=== PATIENT | female | born 1945 | race Caucasian/White ===

== ENCOUNTER 2018-07-26 12:07 | Inpatient (IN) | payer OTHER, MEDICARE ==
[~2018-07-26] VITALS: Ht 154.9 cm; Wt 59.6 kg
[2018-07-26 12:28] LABS: BASOPHILS % 0.5 % (0.0-1.0); EOSINOPHILS # (AUTO) 0.1 (0.0-0.4); EOSINOPHILS % 1.4 % (0.0-6.0); HEMOGLOBIN 10.9 g/dL (12.0-16.0); LYMPHOCYTES % 30.8 % (18.0-39.1); MEAN CORPUSCULAR HEMOGLOBIN 31.2 pg (28-32); MEAN CORPUSCULAR HGB CONC 35.2 g/dL (31-35); MEAN CORPUSCULAR VOLUME 88.8 fL (81-99); MONOCYTES # (AUTO) 0.5 (0.2-0.8); MONOCYTES % 7.2 % (4.4-11.3); NEUTROPHILS # (AUTO) 3.9 (2.1-6.9); NEUTROPHILS % 59.8 % (38.7-80.0); PLATELET COUNT 224 x10e3/uL (140-360); RED BLOOD COUNT 3.49 x10e6/uL (3.6-5.1); RED CELL DISTRIBUTION WIDTH 13.1 % (11.7-14.4)
[2018-07-26 12:38] LABS: INR 0.86; PROTHROMBIN TIME 12.5 seconds (11.9-14.5)
[2018-07-26 12:39] LABS: PARTIAL THROMBOPLASTIN TIME 31.7 seconds (23.8-35.5)
[2018-07-26 12:46] LABS: ALBUMIN 3.6 g/dL (3.5-5.0); ALBUMIN/GLOBULIN RATIO 1.1 (0.8-2.0); ANION GAP 19.9 mmol/L (8-16); CALCIUM 9.7 mg/dL (8.4-10.2); CREATININE, SERUM 1.77 mg/dL (0.57-1.11); MAGNESIUM 1.8 MG/DL (1.3-2.1); POTASSIUM 3.9 mmol/L (3.5-5.1)
[2018-07-26 12:53] LABS: CREATINE KINASE MB 0.9 ng/mL (0-5.0)
--- NOTE | 2018-07-26 13:01 | Diagnostic Imaging Report ---
EXAMINATION: Head CT HISTORY: Weakness, evaluate for stroke COMPARISON: None. TECHNIQUE: Multidetector axial images were obtained without contrast from the foramen magnum to the vertex . The images were reconstructed using brain and bone algorithms. Thin section brain images were reformatted into coronal and sagittal planes. Intravenous contrast: None. Image quality: Motion/streaking artifact limits the evaluation of the skull base and posterior cranial fossa. Dose modulation, iterative reconstruction, and/or weight based adjustment of the mA/kV was utilized to reduce the radiation dose to as low as reasonably achievable. FINDINGS: Parenchyma: 1. Few scattered white matter hypodensities, mostly in the frontal lobes, most likely nonspecific chronic microvascular ischemic changes. 2. Nonspecific prominent hypodensity in the left greater than right middle cerebellar pedicles, which may represent sequela from prior ischemia, toxic exposure or metabolic disorder. 3. No mass or hemorrhage. No CT evidence of acute territorial vascular insult. Extra-axial spaces:No abnormal density. No extra-axial fluid collections Brain volume: Normal for age. Ventricles: No hydrocephalus or displacement. Arteries: No density suggestive of thrombus. Dural sinuses: No abnormal density. Extra-axial spaces: No abnormal density. Foramen magnum: No mass, Chiari malformation, or basilar invagination. Sella: No obvious mass. Paranasal/mastoid sinuses: Imaged portions unremarkable. Skull/Scalp: No lytic or blastic lesions. No fractures. IMPRESSION: 1. No intracranial hemorrhage or CT evidence of acute cortical infarcts. 2. Mild chronic microvascular ischemic changes. 3. Mild generalized brain volume loss. 4. Nonspecific hypodensities in the middle cerebellar peduncles as above. Signed by: Dr. Gwen Seals M.D. on 07/26/2018 12:56 PM
--- NOTE | 2018-07-26 13:22 | Diagnostic Imaging Report ---
Examination: Single AP view of the chest. COMPARISON: None. INDICATION: Weakness DISCUSSION: The lungs are well-inflated. No focal airspace consolidation, pleural effusion, or pneumothorax. Cardiomediastinal contour and pulmonary vasculature are within normal limits for portable, AP technique. No acute osseous abnormalities. Multiple surgical clips project over the right lower cervical soft tissues. IMPRESSION: No acute cardiopulmonary abnormality. Signed by: Dr. Tommy Valadez M.D. on 07/26/2018 1:16 PM
[2018-07-26] MEDS ORDERED: SODIUM CHLORIDE 0.9% 1000ML 1,000 ML IV ONE (16:15)
[2018-07-26 17:24] LABS: BILIRUBIN,URINE NEGATIVE (NEGATIVE); CLARITY,URINE CLEAR (CLEAR); COLOR,URINE YELLOW (YELLOW); KETONES,URINE NEGATIVE (NEGATIVE); LEUKOCYTE ESTERASE ,URINE TRACE (NEGATIVE); NITRITE,URINE NEGATIVE (NEGATIVE); PROTEIN,URINE DIPSTICK TRACE (NEGATIVE); URINE UROBILINOGEN 0.2 mg/dL (0.2 - 1)
[2018-07-26 17:34] LABS: BACTERIA,URINE MANY /HPF; RBC,URINE 0-5 /HPF (0-5); WBC,URINE (MAN) 0-5 /HPF (0-5)
[2018-07-26] MEDS: SODIUM CHLORIDE 0.9% 1000ML 1,000 ML IV SCH (18:47)
[2018-07-26] MEDS: CEFTRIAXONE SOD 1 GM VIAL IV SCH (18:47)
[2018-07-26] MEDS: ONDANSETRON HCL INJ 2 MG/ML VIAL IV PRN (18:47)
--- NOTE | 2018-07-26 19:15 | History and Physical ---
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 REVIEW OF SYSTEMS CARDIOVASCULAR: No chest pain or palpitation. RESPIRATORY: No shortness of breath. No cough. GASTROINTESTINAL: No nausea. No vomiting or diarrhea. GENITOURINARY: No dysuria. ALLERGIES: LISTED ON THE CHART. SOCIAL HISTORY: She does not drink. PAST MEDICAL HISTORY: Positive for diabetes mellitus, type 2, cerebellar CVA, which was diagnosed in May of this year, and history of hypertension. PHYSICAL EXAMINATION HEART: Shows Regular rhythm. Normal S1 and S2 sounds. LUNGS: Clear bilaterally. ABDOMEN: Soft. EXTREMITIES: Show no evidence of cyanosis or trauma. NEUROLOGIC: Alert and oriented times 3. Cranial nerves II-XII are within normal limits. Motor strength is 5/5 in upper and lower extremities. Sensory is intact all over. FINAL IMPRESSION 1. Difficulty walking. 2. Diabetes mellitus, type 2. 3. Status post cerebrovascular accident in the past. 4. Hypertension. PLAN OF TREATMENT: CT of the head was negative for any mention of CVA. We are going to order MRI of the head, carotid Doppler, echocardiogram, and neurology consult with Dr. Fierro. Resume home medications and antiplatelet agents. We are going to make sure she is taking lipid-lowering agents also. Job#: [id number] CT
[2018-07-26 20:08] VITALS: BP 178/77
--- NOTE | 2018-07-26 20:29 | Diagnostic Imaging Report ---
ADDENDUM #1 An additional 1 cm T2 and T2 FLAIR hyperintense focus in the right middle cerebellar peduncle, not associated with restricted diffusion, is a subacute/early chronic nonhemorrhagic vascular insult in the right anterior inferior cerebellar vascular territory. Bilateral insults in these vascular territories are very unusual. Signed by: Dr. Reginaldo Junior M.D. on 07/26/2018 8:36 PM ORIGINAL REPORT History: Weakness Comparison studies: Head CT on 07/26/2018 Technique: Sagittal T2; axial DWI, FLAIR, MPGR, T1, Coronal FLAIR. Intravenous contrast: None Findings: Scalp: Normal in signal . No masses . Bone marrow: Normal in signal intensity. Extra-axial: No masses or fluid collections. Brain sulci: Mildly prominent. Ventricles: Mild compensatory dilatation. No hydrocephalus. Parenchyma: An approximately 1.2 cm focal acute, nonhemorrhagic vascular insult (hyperintense on T2 and T2 FLAIR and associated with restricted diffusion), centered in the left middle cerebellar peduncle, has most likely compromise the anterior inferior cerebellar artery. A similar 3 mm focal infiltrate is seen in the left posterior cerebellum. A few scattered T2 FLAIR hyperintense foci in the supratentorial periventricular white matter are nonspecific small vessel ischemic changes. No masses, hemorrhage, acute or chronic cortical ischemic insults. Suprasellar region: No abnormalities. Craniocervical junction: No abnormalities. Patent foramen magnum. No Chiari one malformation. Vessels: Normal flow-voids in the arteries and sinuses. IMPRESSION: 1. An acute nonhemorrhagic vascular insult, centered in the left middle cerebellar peduncle, has compromised the left anterior inferior cerebellar artery. Smaller acute insult is seen in the left posterior cerebellum. 2. No additional acute abnormalities. 3. Mild supratentorial white matter small vessel ischemic changes. 4. Nurse Gunnar Rolon informed of the findings on 07/26/2018 at 2025 hours. Signed by: Dr. Reginaldo Junior M.D. on 07/26/2018 8:25 PM
[2018-07-26 21:00] VITALS: BP 190/82
[2018-07-26] MEDS ORDERED: AMLODIPINE BESY10 MG PO (21:34)
[2018-07-26] MEDS ORDERED: ZANTAC150 MG PO (21:34)
[2018-07-26] MEDS ORDERED: ATORVASTATIN CA20 MG PO (21:34)
[2018-07-26] MEDS ORDERED: ZYRTEC10 M3 PO (21:34)
[2018-07-26] MEDS ORDERED: ASPIRIN81 MG PO (21:34)
[2018-07-26] MEDS ORDERED: GLIMEPIRIDE2 MG PO (21:34)
[2018-07-26] MEDS ORDERED: LASIX20 MG PO (21:34)
[2018-07-26] MEDS ORDERED: LISINOPRIL20 MG PO (21:34)
[2018-07-27] VITALS: BP 169/72
[2018-07-27] MEDS: SODIUM CHLORIDE 0.9% 1000ML 1,000 ML IV SCH ×2 (02:12→12:24)
[2018-07-27 04:00] VITALS: BP 165/73
[2018-07-27 05:28] LABS: BASOPHILS % 0.3 % (0.0-1.0); EOSINOPHILS # (AUTO) 0.1 (0.0-0.4); EOSINOPHILS % 1.8 % (0.0-6.0); HEMATOCRIT 26.5 % (34.2-44.1); HEMOGLOBIN 9.2 g/dL (12.0-16.0); LYMPHOCYTES % 32.6 % (18.0-39.1); MEAN CORPUSCULAR HEMOGLOBIN 31.4 pg (28-32); MEAN CORPUSCULAR HGB CONC 34.7 g/dL (31-35); MEAN CORPUSCULAR VOLUME 90.4 fL (81-99); MONOCYTES # (AUTO) 0.6 (0.2-0.8); MONOCYTES % 9.9 % (4.4-11.3); NEUTROPHILS # (AUTO) 3.3 (2.1-6.9); NEUTROPHILS % 54.9 % (38.7-80.0); PLATELET COUNT 158 x10e3/uL (140-360); RED BLOOD COUNT 2.93 x10e6/uL (3.6-5.1); RED CELL DISTRIBUTION WIDTH 13.2 % (11.7-14.4)
[2018-07-27 06:15] LABS: ALBUMIN 3.1 g/dL (3.5-5.0); ALBUMIN/GLOBULIN RATIO 1.1 (0.8-2.0); ANION GAP 15.2 mmol/L (8-16); CALCIUM 8.8 mg/dL (8.4-10.2); CREATININE, SERUM 1.35 mg/dL (0.57-1.11); MAGNESIUM 1.8 MG/DL (1.3-2.1); POTASSIUM 4.2 mmol/L (3.5-5.1)
[2018-07-27 08:38] VITALS: BP 176/76
[2018-07-27 12:21] VITALS: BP 157/68
[2018-07-27] MEDS: LISINOPRIL 20 MG TAB PO SCH ×2 (16:55→19:45)
[2018-07-27 16:59] VITALS: BP 184/72
[2018-07-27] MEDS ORDERED: ASPIRIN 81 MG CHEW TAB PO SCH (17:00)
[2018-07-27] MEDS ORDERED: LISINOPRIL 20 MG TAB PO SCH (17:00)
[2018-07-27] MEDS: CEFTRIAXONE SOD 1 GM VIAL IV SCH (17:30)
[2018-07-27] MEDS: FAMOTIDINE 20 MG TAB PO SCH (17:30)
[2018-07-27] MEDS: GLIMEPIRIDE 2 MG TAB PO SCH (17:30)
[2018-07-27 20:00] VITALS: BP 191/99
[2018-07-27 20:11] LABS: CHOL/HDL RATIO 4.1 (3.0-3.6)
[2018-07-27] MEDS: LORATADINE 10 MG TAB PO SCH (20:30)
[2018-07-27] MEDS: ATORVASTATIN 40 MG TAB PO SCH (20:30)
[2018-07-27] MEDS ORDERED: ATORVASTATIN 20 MG TAB PO SCH (21:00)
--- NOTE | 2018-07-27 21:17 | Consultation ---
DATE OF CONSULTATION: July 27, 2018 UROLOGY CONSULTATION CHIEF UROLOGIC CONSULTATION/REASON FOR CONSULTATION: Urinary retention. HISTORY OF PRESENT ILLNESS: Ms. Kaye Knapp is a 73-year-old female, admitted to the hospital for confusion and difficulty walking, status post previous stroke. Urologic consultation was requested as the patient was unable to urinate and had urinary retention. On discussion with the nurses, it is unclear how much was in the Armas catheter when it was placed, although the bag appears full now. Speaking to the patient and the patient's daughter, both in the room, the patient has denied dysuria, denied hematuria, denied prior leakage, did have nocturia 1 or 2 times per night. PAST MEDICAL HISTORY: Known for diabetes mellitus, stroke, hypertension. MEDICATIONS: Please see MAR. ALLERGIES: NKDA. SOCIAL HISTORY: Denied smoking or drinking. FAMILY HISTORY: No urologic stones or malignancies. REVIEW OF SYSTEMS: Noncontributory other than problems mentioned above for 12-point systems. PHYSICAL EXAMINATION GENERAL: Elderly female, in no acute distress. VITALS: Temperature 98.9, pulse 86, respirations 18, blood pressure 137/68. HEENT: Sclerae anicteric. NECK: Supple. BACK: Without costovertebral angle tenderness bilaterally. ABDOMEN: Soft. It is nontender. It is nondistended. There is no palpable mass. No palpable hernias. No palpable lymphadenopathy. : Normal female external genitalia. EXTREMITIES: Without edema. Moves all 4 extremities. PSYCH: Alert and appropriate. SKIN: Intact. Normal color. PERTINENT LABORATORY DATA: Hemoglobin 10, hematocrit 31, platelet count 224,000, white cell count 6500. Sodium 139, potassium 3.9, chloride 99, bicarb 24, BUN 31, creatinine 1.77, glucose 262. Urinalysis positive for leukocyte esterase, positive for protein, trace blood, 0 to 5 reds and 0 to 5 whites. IMPRESSION 1. Urinary retention. 2. Microscopic hematuria. 3. Questionable urinary tract infection. 4. Chronic versus acute renal failure. 5. Hypertension. 6. Anemia. PLAN 1. The patient is asymptomatic urinary-cabrera, had a Armas catheter placed. Would obtain a renal ultrasound to attempt to elucidate the cause of the acute versus chronic renal failure. 2. For the urinary tract infections and microscopic hematuria, the patient should undergo elective cystoscopy which can be safely performed as an outpatient. 3. For now, will continue the Armas catheter and likely need outpatient urodynamics in the setting for stroke to rule out neurogenic bladder. Thank you for allowing me to participate in the care of your patient. We will be happy to follow along with you. Job#: [id number] GE
[2018-07-27] MEDS: HEPARIN SOD (PORCINE) 5,000 UNIT/ML VIAL SC SCH (22:45)
[2018-07-28] VITALS (8 sets, daily range): BP systolic 150–194; BP diastolic 65–84
--- NOTE | 2018-07-28 00:44 | Consultation ---
DATE OF CONSULTATION: July 27, 2018 NEUROLOGY CONSULT NOTE HISTORY OF PRESENT ILLNESS: Ms. 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 On July 25, 2018, the patient experienced the abrupt onset of poor balance with an unsteady gait. Ms. Knapp endorses mildly slurred speech, numbness over the right side of the face, blurred vision, dizziness which is further described as a vertiginous sensation, and mild confusion associated with the gait impairment. She does not report a visual field cut or weakness. After the patient's symptoms persisted for approximately 1 day, she presented to the emergency center at [facility] for further evaluation. Upon arrival in the emergency center, the patient was afebrile with a blood pressure of 121/66 mmHg and a pulse of 100 beats per minute. The patient's neurological examination was documented as being nonfocal. While in the emergency center, Ms. Knapp underwent a CT of the brain without contrast, which did not show evidence of recent large territorial ischemia or hemorrhage. Ms. Knapp was then admitted to [facility] as an inpatient for further evaluation and treatment of her symptoms. Ms. Knapp has history of a prior cerebellar stroke in May of 2018. She was hospitalized in . Ms. Knapp does not recall the symptoms she experienced with her stroke, but her daughter does endorse mildly slurred speech as well as an unsteady gait as residual deficits from the stroke. At the time of her stroke in May of 2018, the patient was instructed to take aspirin 81 mg by mouth daily for stroke prophylaxis. The patient's daughter endorses her compliance with this medication. REVIEW OF SYSTEMS: Decreased oral intake, mild confusion, blurred vision, numbness over the right side of the face, impairment of balance and gait, vertigo. Otherwise, the 12-point review of systems is negative. 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 PAST SURGICAL HISTORY: Partial hysterectomy, removal of a growth on the thyroid gland, bilateral tubal ligation. PAST HOSPITALIZATIONS: Surgeries/procedures as listed, childbirth x3, prior hospitalization for poor appetite and decreased oral intake, stroke in May 2018. FAMILY MEDICAL HISTORY: The patient's paternal and maternal grandparents are . Their medical histories are unknown. The patient's father is from a motor vehicle accident. Her mother is . Her medical history is unknown. Ms. Knapp had 3 siblings, 1 brother and 2 sisters. One sister is . The patient reports she was murdered. The second sister and brother are alive and healthy. Ms. Knapp has 3 children, 2 daughters and 1 son, all of whom are alive and healthy. SOCIAL HISTORY: The patient is . She works in [employer] at [employer]. The patient does not report current or prior tobacco, alcohol, or recreational drug use. HOME MEDICATIONS: Please see the list of home medications available in the electronic medical records. ALLERGIES: TRAMADOL, MORPHINE, METFORMIN. NO KNOWN FOOD ALLERGIES. NO KNOWN ALLERGIES TO LATEX. NO KNOWN ALLERGIES TO IODINE OR OTHER CONTRAST MATERIALS. PHYSICAL EXAMINATION: VITAL SIGNS: Height 61 inches, weight 126 pounds, BMI 23.8 kg/sq m. Blood pressure 184/72 mmHg, pulse 89 beats per minute, respiratory rate 16 breaths per minute, oxygen saturation 99% on room air. GENERAL: The patient is awake and alert, does not appear distressed. HEENT: Normocephalic, atraumatic. Pupils are equal, round, and reactive to light. Moist mucous membranes. NECK: Supple. No appreciable thyromegaly. No appreciable carotid bruits. CARDIOVASCULAR: S1, S2, regular rate and rhythm. No murmurs, rubs, or gallops. RESPIRATORY: Clear to auscultation bilaterally. No wheezes, rhonchi, or rales. EXTREMITIES: The skin is warm and dry. No clubbing, cyanosis, or edema. The posterior tibial and dorsalis pedis pulses are 1+ and symmetric. SKIN: No rashes or lesions. NEUROLOGIC EXAMINATION: MEMORY/ATTENTION: The patient is awake and alert, oriented to person, place, time, and situation. CRANIAL NERVES: Cranial nerve I - not tested. Cranial nerves II, III, IV, and - Pupils are equal and round, reacts briskly to light (from 4 mm to 2 mm). Extraocular movements intact. No nystagmus. Cranial nerve V - Sensation to light touch and pinprick is intact in the bilateral V1 through V3 distributions. Strength of the temporalis and masseter muscles is within normal limits. Cranial nerve VII - The face is symmetric as are all facial movements. Strength is within normal limits. Cranial nerve VIII - Hearing is diminished to finger rub bilaterally. Cranial nerve IX, X - The soft palate elevates equally and symmetrically. Cranial nerve XI - Normal strength of the bilateral sternocleidomastoid and trapezius muscles. Cranial nerve XII - The tongue protrudes midline and moves symmetrically from side to side. STRENGTH: Bulk is normal. Strength is 5/5 in the bilateral deltoids, biceps, triceps, wrist flexors and extensors, finger flexors and extensors, intrinsic hand muscles, hip flexors, knee flexors and extensors, ankle dorsiflexion and plantarflexion, and intrinsic foot muscles. Tone is normal. DTRs: Deep tendon reflexes are 2+ and symmetric at the triceps, biceps, brachioradialis, and patellas. Deep tendon reflexes are absent and symmetric at the Achilles. Plantar responses are flexor bilaterally. SENSATION: Sensation is intact to light touch and pinprick in both arms and both legs. CEREBELLAR: Nlfdhv-ezkp-sgafdg and heel-black movements are intact without dysmetria or other impairment except as follows: There is dysmetria with ndiqsq-pnyw-yokjgd movements of the right arm. GAIT: Deferred. SPEECH: Spontaneous speech is mildly dysarthric without aphasia. Repetition is intact. INVOLUNTARY MOVEMENTS: None. PRONATOR DRIFT: None. LABORATORY DATA: The patient's comprehensive metabolic panel is significant for an elevated serum chloride of 109, creatinine of 1.35, estimated GFR of 38, elevated serum glucose of 140. Cardiac enzymes are negative x1. Lactic acid is 9.6. The CBC with differential and platelets reveals a white blood cell count of 6.07 with a normal differential. The hemoglobin and hematocrit are 9.2 and 26.5, respectively. The platelet count is 158,000. PT, INR, and PTT are within normal limits. A urinalysis was significant for trace protein, trace blood, trace leukocyte esterase, and many urine bacteria. Blood cultures collected on July 26, 2018 showed no growth after 24 hours. A urine culture collected on July 26, 2018 is growing gram-negative bacilli. DIAGNOSTIC STUDIES: 1. Electrocardiogram, July 26, 2018: Normal sinus rhythm at 96 beats per minute. 2. Chest x-ray, July 26, 2018: No acute cardiopulmonary abnormality. 3. CT of the brain without contrast, July 26, 2018: On my review, there are prominent hypodensities in the left greater than right middle cerebellar peduncles. Cerebral volume is appropriate for age. There are findings compatible with mild to moderate chronic small-vessel ischemic disease. 4. MRI of the brain without contrast, July 26, 2018: There are acute ischemic strokes in the left middle cerebellar peduncle as well as the left posterior cerebellum. Cerebral volume is appropriate for age. There are scattered, nonspecific T2/FLAIR hyperintense foci of the supratentorial deep white matter compatible with mild chronic small-vessel ischemic disease. 5. Echocardiogram, July 27, 2018: Ejection fraction 55% to 60%. Trace mitral and tricuspid regurgitation. 6. Bilateral carotid artery ultrasound with Doppler, July 27, 2018: There is atherosclerosis without hemodynamically significant stenosis at the bilateral carotid bulbs, bifurcations, and internal carotid arteries. There is antegrade flow in the bilateral vertebral arteries. ASSESSMENT AND PLAN: Ms. Knapp is a 73-year-old right hand dominant woman with multiple vascular risk factors, admitted with embolic-appearing cerebellar strokes as described above. The patient's neurological examination is significant for dysmetria of the right arm. Her laboratory data and other diagnostic studies have been reviewed and are documented above. RECOMMENDATIONS: As follows: 1. A lipid panel and hemoglobin A1c will be ordered. 2. As stated above, there is an embolic appearance to the patient's 2 acute ischemic strokes. A MRA of the brain without contrast will be ordered to evaluate for a thromboembolic source in the basilar artery. 3. Discontinue aspirin. Ms. Knapp will be prescribed Plavix 75 mg by mouth daily for stroke prophylaxis. 4. The patient's blood pressure may be gradually normalized. Her primary care physician has resumed treatment with lisinopril and amlodipine. Monitor vital signs per unit protocol. 5. Continue treatment with atorvastatin 80 mg by mouth at bedtime daily. Follow up the results of the lipid panel. 6. Continue home diabetes medications. Follow up the results of the hemoglobin A1c. Tight glycemic control is recommended. 7. A physical therapy evaluation has been ordered and is pending. A speech therapy evaluation will be ordered as well. 8. GI prophylaxis with Pepcid 20 mg by mouth twice daily. DVT prophylaxis with heparin 5000 units subcutaneously q.12h. 9. Defer treatment of the remaining medical comorbidities to the primary and other services following the patient. Thank you for this consultation. I will continue to follow the patient while she remains in the hospital. TIME SPENT: 70 minutes. JERAMIE GANDARA M.D. Job#: [id number] DR GARIBAY
[2018-07-28] MEDS: FUROSEMIDE 20 MG TAB PO SCH (08:27)
[2018-07-28] MEDS: AMLODIPINE BESYLATE 10 MG TAB PO SCH (08:27)
[2018-07-28] MEDS: CLOPIDOGREL BISULFATE 75 MG TAB PO SCH (08:28)
[2018-07-28] MEDS: HEPARIN SOD (PORCINE) 5,000 UNIT/ML VIAL SC SCH ×2 (08:29→21:35)
--- NOTE | 2018-07-28 10:53 | Diagnostic Imaging Report ---
PROCEDURE:US RETROPERITONEAL ( KIDNEY ). COMPARISON:None. INDICATIONS:ARF TECHNIQUE:Ultrasound examination was performed of the kidneys and bladder. FINDINGS: RIGHT KIDNEY:Measures 9.4 cm. Cortex measures 1.7 cm. No evidence of hydronephrosis or solid mass. Normal echogenicity. LEFT KIDNEY:Measures 9 cm. Cortex measures 1.7 cm. No evidence of hydronephrosis or solid mass. Normal echogenicity. BLADDER:Armas catheter is present in a decompressed bladder. CONCLUSION: Unremarkable bilateral renal ultrasound. DICTATED BY: CORWIN GAGNON M.D. ON 07/28/2018 AT 11:00 ELECTRONICALLY APPROVED BY: CORWIN GAGNON M.D. ON 07/28/2018 AT 11:00
--- NOTE | 2018-07-28 12:46 | Diagnostic Imaging Report ---
Exam: Intracranial MRA: History: Stroke, Comparison studies: Brain MRI and head CT of 07/26/2018. Technique: Axial 3-D [id number] with coronal, sagittal and 3-D MIP reformats. IV contrast: None. Findings: Anterior circulation: Patent bilateral internal carotid arteries. Calcified atherosclerosis in the bilateral cavernous and paraophthalmic ICA segments with mild stenosis in the left paraophthalmic segment. Mild stenosis at the right M1 MCA origin, otherwise patent bilateral M1 and proximal M2 segments of the middle cerebral arteries. The A1 and proximal A2 segments of the anterior cerebral arteries are likewise patent. The left A1 segment is hypoplastic. Posterior circulation: Patent, no flow abnormalities in the included intradural V4 segments of the vertebral arteries, basilar artery or posterior cerebral arteries. The origins of the posterior inferior cerebellar arteries, anterior inferior cerebellar arteries and superior cerebellar arteries are patent, moreover, evaluation of these arteries distal to their origins cannot adequate evaluate by this MRA. Anatomical variants: Anterior cerebral arteries: Hypoplastic left A1 segment. Acom: Visualized. Pcoms: Not well visualized, possibly hypoplastic. Vertebral arteries: Co-dominant. IMPRESSION: 1. No major branch occlusion in the [place]. 2. Mild stenosis at the right M1 MCA origin. 3. Mild stenosis in the left paraophthalmic ICA segment. Signed by: Dr. Tommy Perry M.D. on 07/28/2018 12:43 PM
[2018-07-28] MEDS: LISINOPRIL 20 MG TAB PO SCH (16:49)
[2018-07-28] MEDS: FAMOTIDINE 20 MG TAB PO SCH (16:49)
[2018-07-28] MEDS: GLIMEPIRIDE 2 MG TAB PO SCH (16:49)
[2018-07-28] MEDS ORDERED: HYDRALAZINE HCL 20 MG/ML VIAL IV PRN (17:00)
[2018-07-28] MEDS: CEFTRIAXONE SOD 1 GM VIAL IV SCH (17:54)
--- NOTE | 2018-07-28 18:46 | Progress Note ---
DATE: INTERNAL MEDICINE PROGRESS NOTE SUBJECTIVE: Patient is apparently refusing to eat. We are going to start some appetite stimulant. Today, she participated in physical therapy. PHYSICAL EXAM HEART: Shows regular rhythm. Normal S1 and S2 sounds. LUNGS: Clear bilaterally. ABDOMEN: Soft. EXTREMITIES: Show no evidence of cyanosis, edema or trauma. VITALS: Blood pressure 177/80, temperature 97.8, heart rate 86 per minute, respiratory rate 18 per minute, oxygen saturation is 99%. On the BMP, sodium 144, potassium 4.2, chloride 109, CO2 24, BUN 24, creatinine 1.35, glucose 140. On the CBC, white blood count 6.07, hemoglobin 9.2, hematocrit 26.5, and platelet count 115,000. PT 12.5, PTT 31.7 and INR 0.86. AST 15, ALT 12, total bilirubin 0.8, alkaline phosphatase 95. FINAL IMPRESSION 1. Status post cerebrovascular accident which ischemic in nature. 2. Sydyl-mf-xnkdnwe renal failure. 3. Hypercholesterolemia. 4. Restless leg syndrome. 5. Uncontrolled hypertension with hypertensive nephropathy. 6. Uncontrolled diabetes mellitus, type 2 with diabetic nephropathy. PLAN OF TREATMENT: Continue physical and occupational therapy. Continue ceftriaxone 1 g IV daily for UTI. Lipitor 80 mg daily. Gabapentin 100 mg daily. Claritin 10 mg daily. Furosemide 20 mg daily. Lisinopril 40 mg daily. Pepcid 20 mg daily. Plavix 75 mg daily. Glimepiride 2 mg daily. Heparin 5000 units twice a day for DVT prophylaxis. For anorexia, we are going to start Remeron 15 mg p.o. daily at bedtime. MRA of the [place] is negative for any type of stenosis. We are awaiting the carotid Doppler and echocardiogram report. Continue physical and occupational therapy. Job#: [id number] [place]
[2018-07-28] MEDS: ATORVASTATIN 40 MG TAB PO SCH (21:38)
[2018-07-28] MEDS: LORATADINE 10 MG TAB PO SCH (21:38)
[2018-07-28] MEDS: GABAPENTIN 100 MG CAP PO SCH (21:38)
[2018-07-29] VITALS (7 sets, daily range): BP systolic 149–173; BP diastolic 69–79
[2018-07-29] MEDS: NEBIVOLOL 10 MG TAB PO SCH (08:41)
[2018-07-29] MEDS: FUROSEMIDE 20 MG TAB PO SCH (08:42)
[2018-07-29] MEDS: GABAPENTIN 100 MG CAP PO SCH (08:42)
[2018-07-29] MEDS: AMLODIPINE BESYLATE 10 MG TAB PO SCH (08:43)
[2018-07-29] MEDS: CLOPIDOGREL BISULFATE 75 MG TAB PO SCH (08:43)
[2018-07-29] MEDS: HEPARIN SOD (PORCINE) 5,000 UNIT/ML VIAL SC SCH ×2 (08:45→21:20)
[2018-07-29] MEDS ORDERED: AMLODIPINE BESYLATE 5 MG TAB PO SCH (09:00)
--- NOTE | 2018-07-29 10:43 | Progress Note ---
DATE: INTERNAL MEDICINE PROGRESS NOTE SUBJECTIVE: Patient is doing better. Appetite has improved. PHYSICAL EXAMINATION VITALS: Blood pressure 171/79, temperature is 97.2, heart rate 82 per minute, respiratory rate 20 per minute, oxygen saturation 100%. HEART: Regular rhythm. Normal S1 and S2 sounds. LUNGS: Clear bilaterally. EXTREMITIES: Show no evidence of cyanosis, edema or trauma. On the BMP, sodium 144, potassium 4.2, chloride 109, CO2 24, BUN 24, creatinine 1.35, glucose 114. On the CBC, white blood count 6.07, hemoglobin 9.2, hematocrit 26.5, and platelet count 158,000. PT 12.5, PTT 31.7 and INR 0.86. AST 15, ALT 12, total bilirubin 0.48, alkaline phosphatase 95. FINAL IMPRESSION 1. 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 2. Acute renal failure. 3. Hypertension with hypertensive nephropathy. 4. Hypercholesterolemia. 5. Diabetic neuropathy. 6. Poor appetite. 7. Diabetes mellitus, type 2 with diabetic nephropathy. 8. Urinary tract infection. PLAN OF TREATMENT: We are going to continue ceftriaxone 1 g IV daily for UTI. Zofran 4 mg IV q.4 h. as needed. Amlodipine 10 mg daily. Claritin 10 mg daily. Lipitor 80 mg daily. Gabapentin 100 mg daily. Furosemide 20 mg daily. Lisinopril 40 mg daily. Hydralazine 10 mg IV q.4 h. as needed. Pepcid 20 mg daily. Plavix 75 mg daily. Bystolic 10 mg daily. Glimepiride 2 mg daily. Heparin 5000 units subcutaneous twice a day and Remeron 15 mg daily. Patient is going to be transferred to [facility] if accepted by insurance for a higher level of physical therapy. Job#: [id number] DC
[2018-07-29] MEDS: HYDRALAZINE HCL 25 MG TAB PO SCH ×2 (15:44→21:00)
[2018-07-29] MEDS: LISINOPRIL 20 MG TAB PO SCH (17:15)
[2018-07-29] MEDS: GLIMEPIRIDE 2 MG TAB PO SCH (17:15)
[2018-07-29] MEDS: FAMOTIDINE 20 MG TAB PO SCH (17:15)
[2018-07-29] MEDS: CEFTRIAXONE SOD 1 GM VIAL IV SCH (17:15)
[2018-07-29] MEDS: ATORVASTATIN 40 MG TAB PO SCH (21:00)
[2018-07-29] MEDS: LORATADINE 10 MG TAB PO SCH (21:00)
[2018-07-29] MEDS ORDERED: GABAPENTIN 100 MG CAP PO SCH (21:00)
[2018-07-29] MEDS: MIRTAZAPINE 15 MG TAB PO SCH (22:20)
[2018-07-30] VITALS (8 sets, daily range): BP systolic 125–155; BP diastolic 60–76
[2018-07-30] MEDS: FUROSEMIDE 20 MG TAB PO SCH (09:00)
[2018-07-30] MEDS: HYDRALAZINE HCL 25 MG TAB PO SCH ×3 (09:00→21:28)
[2018-07-30] MEDS: CLOPIDOGREL BISULFATE 75 MG TAB PO SCH (09:00)
[2018-07-30] MEDS: NEBIVOLOL 10 MG TAB PO SCH (09:00)
[2018-07-30] MEDS: AMLODIPINE BESYLATE 10 MG TAB PO SCH (09:00)
[2018-07-30] MEDS: HEPARIN SOD (PORCINE) 5,000 UNIT/ML VIAL SC SCH ×2 (09:00→21:29)
[2018-07-30] MEDS ORDERED: DEXTROSE 50% SYRINGE 50 ML IV PRN (13:00)
[2018-07-30] MEDS ORDERED: ZOLPIDEM TARTRATE 5 MG TAB PO PRN (15:30)
--- NOTE | 2018-07-30 15:59 | Progress Note ---
DATE: INTERNAL MEDICINE PROGRESS NOTE SUBJECTIVE: The patient is sleepy during the daytime. According to the family member, she had a sleepless night. PHYSICAL EXAMINATION HEART: Regular rhythm. Normal S1 and S2 sounds. LUNGS: Clear bilaterally. ABDOMEN: Soft. EXTREMITIES: No evidence of cyanosis, edema or trauma. VITALS: Blood pressure 155/68. Temperature 97.2. Heart rate 76 per minute. Respiratory rate 16 per minute. Oxygen saturation 99%. LABS: On the BMP, sodium 144, potassium 4.2, chloride 109, CO2 24, BUN 24, creatinine 1.35. Glucose 140. On the CBC, white blood count 6.07, hemoglobin 9.2, hematocrit 26.5, platelet count 158,000. PT 12.5, PTT 31.7, INR 0.86. AST 15, ALT 12, total bilirubin 0.8, alkaline phosphatase 95. FINAL IMPRESSION 1. Left cerebrovascular accident. 2. Uncontrolled hypertension. 3. Sleepiness. 4. Uncontrolled diabetes mellitus, type 2, with diabetic neuropathy. 5. Hypercholesterolemia. 6. Urinary tract infection. PLAN OF TREATMENT 1. Continue ceftriaxone 1 gram IV once a day. 2. Zofran 4 mg IV q.4 h. as needed. 3. Amlodipine 10 mg daily. 4. Claritin 10 mg daily. 5. Lisinopril 40 mg daily. 6. Bystolic 10 mg daily. 7. Glimepiride 4 mg daily. 8. Furosemide 20 mg daily. 9. Plavix 75 mg daily. 10. Remeron 15 mg at bedtime. 11. Pepcid 20 mg daily. 12. Heparin 5,000 units subcutaneously twice a day for DVT prophylaxis. 13. Hydralazine 25 mg 3 times a day. 14. Lipitor 80 mg daily. 15. Hydralazine 10 mg IV q.4 h. as needed for hypertension. 16. We are going to discontinue gabapentin. Instead, we are going to give her Requip 0.25 mg at bedtime for restless legs. 17. We are going to also give her Ambien 5 mg at night p.r.n. for sleep. 18. Continue physical and occupational therapy. We are still waiting on [employer], which is [employer], to give us permission to go to an inpatient rehab, which the patient qualifies after a CVA. Job#: [id number] MH
[2018-07-30] MEDS: INSULIN REGULAR, HUMAN 100 UNIT/1 ML 3ML VIAL SQ SCH ×2 (16:30→21:00)
[2018-07-30] MEDS: LISINOPRIL 20 MG TAB PO SCH (16:56)
[2018-07-30] MEDS: FAMOTIDINE 20 MG TAB PO SCH (16:56)
[2018-07-30] MEDS ORDERED: GLIMEPIRIDE 2 MG TAB PO SCH (17:00)
[2018-07-30] MEDS: ROPINIROLE HCL 0.25 MG TAB PO SCH (17:12)
[2018-07-30] MEDS: CEFTRIAXONE SOD 1 GM VIAL IV SCH (17:35)
[2018-07-30] MEDS ORDERED: ROPINIROLE HCL 0.25 MG TAB PO SCH (18:00)
[2018-07-30] MEDS: ATORVASTATIN 40 MG TAB PO SCH (21:28)
[2018-07-30] MEDS: LORATADINE 10 MG TAB PO SCH (21:28)
[2018-07-30] MEDS: MIRTAZAPINE 15 MG TAB PO SCH (21:28)
[2018-07-31] VITALS (7 sets, daily range): BP systolic 132–166; BP diastolic 60–90
[2018-07-31] MEDS: INSULIN REGULAR, HUMAN 100 UNIT/1 ML 3ML VIAL SQ SCH ×4 (07:30→22:27)
[2018-07-31] MEDS: FUROSEMIDE 20 MG TAB PO SCH (08:56)
[2018-07-31] MEDS: AMLODIPINE BESYLATE 10 MG TAB PO SCH (08:56)
[2018-07-31] MEDS: NEBIVOLOL 10 MG TAB PO SCH (08:56)
[2018-07-31] MEDS: HYDRALAZINE HCL 25 MG TAB PO SCH ×3 (08:56→21:06)
[2018-07-31] MEDS: CLOPIDOGREL BISULFATE 75 MG TAB PO SCH (08:56)
[2018-07-31] MEDS: HEPARIN SOD (PORCINE) 5,000 UNIT/ML VIAL SC SCH ×2 (08:58→21:30)
[2018-07-31] MEDS: FAMOTIDINE 20 MG TAB PO SCH (16:58)
[2018-07-31] MEDS: LISINOPRIL 20 MG TAB PO SCH (16:58)
[2018-07-31] MEDS: ROPINIROLE HCL 0.25 MG TAB PO SCH (17:05)
[2018-07-31] MEDS: CEFTRIAXONE SOD 1 GM VIAL IV SCH (19:02)
[2018-07-31] MEDS: ATORVASTATIN 40 MG TAB PO SCH (21:06)
[2018-07-31] MEDS: MIRTAZAPINE 15 MG TAB PO SCH (21:06)
[2018-07-31] MEDS: LORATADINE 10 MG TAB PO SCH (21:06)
[2018-08-01] VITALS (7 sets, daily range): BP systolic 116–144; BP diastolic 56–67
[2018-08-01 05:44] LABS: BASOPHILS % 0.5 % (0.0-1.0); EOSINOPHILS # (AUTO) 0.2 (0.0-0.4); EOSINOPHILS % 2.6 % (0.0-6.0); HEMATOCRIT 28.3 % (34.2-44.1); HEMOGLOBIN 9.9 g/dL (12.0-16.0); LYMPHOCYTES # (AUTO) 2.3 (1.0-3.2); LYMPHOCYTES % 35.2 % (18.0-39.1); MEAN CORPUSCULAR HEMOGLOBIN 31.4 pg (28-32); MEAN CORPUSCULAR VOLUME 89.8 fL (81-99); MONOCYTES # (AUTO) 0.6 (0.2-0.8); MONOCYTES % 8.7 % (4.4-11.3); NEUTROPHILS # (AUTO) 3.4 (2.1-6.9); NEUTROPHILS % 52.5 % (38.7-80.0); PLATELET COUNT 167 x10e3/uL (140-360); RED BLOOD COUNT 3.15 x10e6/uL (3.6-5.1); RED CELL DISTRIBUTION WIDTH 13.3 % (11.7-14.4)
[2018-08-01 06:09] LABS: ALBUMIN/GLOBULIN RATIO 1.1 (0.8-2.0); ANION GAP 15.3 mmol/L (8-16); CALCIUM 8.8 mg/dL (8.4-10.2); CREATININE, SERUM 1.46 mg/dL (0.57-1.11); POTASSIUM 3.3 mmol/L (3.5-5.1)
[2018-08-01] MEDS: INSULIN REGULAR, HUMAN 100 UNIT/1 ML 3ML VIAL SQ SCH ×4 (07:30→21:00)
[2018-08-01] MEDS: NEBIVOLOL 10 MG TAB PO SCH (08:59)
[2018-08-01] MEDS: FUROSEMIDE 20 MG TAB PO SCH (08:59)
[2018-08-01] MEDS: HYDRALAZINE HCL 25 MG TAB PO SCH ×3 (08:59→21:45)
[2018-08-01] MEDS ORDERED: POTASSIUM CHLORIDE 20 MEQ TAB CR PO ONE (09:00)
[2018-08-01] MEDS: AMLODIPINE BESYLATE 10 MG TAB PO SCH (09:00)
[2018-08-01] MEDS: HEPARIN SOD (PORCINE) 5,000 UNIT/ML VIAL SC SCH ×2 (09:00→21:45)
[2018-08-01] MEDS: CLOPIDOGREL BISULFATE 75 MG TAB PO SCH (09:00)
[2018-08-01] MEDS ORDERED: ACETAMINOPHEN 325 MG TAB PO PRN (10:15)
[2018-08-01] MEDS ORDERED: SODIUM CHLORIDE 0.9% 1000ML 1,000 ML IV ONE (10:15)
[2018-08-01] MEDS: FAMOTIDINE 20 MG TAB PO SCH (17:23)
[2018-08-01] MEDS: ROPINIROLE HCL 0.25 MG TAB PO SCH (17:23)
[2018-08-01] MEDS: LISINOPRIL 20 MG TAB PO SCH (17:23)
[2018-08-01] MEDS: CEFTRIAXONE SOD 1 GM VIAL IV SCH (17:24)
[2018-08-01] MEDS: ATORVASTATIN 40 MG TAB PO SCH (21:45)
[2018-08-01] MEDS: LORATADINE 10 MG TAB PO SCH (21:45)
[2018-08-01] MEDS: MIRTAZAPINE 15 MG TAB PO SCH (21:45)
[2018-08-02] VITALS (7 sets, daily range): BP systolic 136–166; BP diastolic 56–72
[2018-08-02 06:02] LABS: BASOPHILS % 0.5 % (0.0-1.0); EOSINOPHILS # (AUTO) 0.2 (0.0-0.4); EOSINOPHILS % 2.4 % (0.0-6.0); HEMATOCRIT 24.6 % (34.2-44.1); HEMOGLOBIN 8.6 g/dL (12.0-16.0); LYMPHOCYTES # (AUTO) 1.9 (1.0-3.2); LYMPHOCYTES % 29.5 % (18.0-39.1); MEAN CORPUSCULAR HEMOGLOBIN 31.7 pg (28-32); MEAN CORPUSCULAR VOLUME 90.8 fL (81-99); MONOCYTES # (AUTO) 0.5 (0.2-0.8); MONOCYTES % 7.3 % (4.4-11.3); NEUTROPHILS # (AUTO) 3.8 (2.1-6.9); PLATELET COUNT 149 x10e3/uL (140-360); RED BLOOD COUNT 2.71 x10e6/uL (3.6-5.1); RED CELL DISTRIBUTION WIDTH 13.5 % (11.7-14.4)
[2018-08-02 06:32] LABS: ANION GAP 15.8 mmol/L (8-16); CALCIUM 8.3 mg/dL (8.4-10.2); CREATININE, SERUM 1.28 mg/dL (0.57-1.11); POTASSIUM 3.8 mmol/L (3.5-5.1)
[2018-08-02] MEDS: INSULIN REGULAR, HUMAN 100 UNIT/1 ML 3ML VIAL SQ SCH ×4 (07:30→20:13)
[2018-08-02] MEDS ORDERED: PNEUMOCOCCAL VACCINE POLYVALENT 23 MCG/0.5 ML VIAL IM NR (08:00)
[2018-08-02] MEDS ORDERED: INFLUENZA VIRUS VAC SPLIT INJ 0.5 ML SYR IM NR (08:00)
[2018-08-02] MEDS: HYDRALAZINE HCL 25 MG TAB PO SCH ×3 (08:47→20:25)
[2018-08-02] MEDS: AMLODIPINE BESYLATE 10 MG TAB PO SCH (08:48)
[2018-08-02] MEDS: FUROSEMIDE 20 MG TAB PO SCH (08:48)
[2018-08-02] MEDS: CLOPIDOGREL BISULFATE 75 MG TAB PO SCH (08:48)
[2018-08-02] MEDS: NEBIVOLOL 10 MG TAB PO SCH (08:48)
[2018-08-02] MEDS: HEPARIN SOD (PORCINE) 5,000 UNIT/ML VIAL SC SCH ×2 (08:54→20:25)
[2018-08-02] MEDS: ONDANSETRON HCL INJ 2 MG/ML VIAL IV PRN (10:57)
[2018-08-02 11:42] LABS: HEMATOCRIT 25.1 % (34.2-44.1); HEMOGLOBIN 8.8 g/dL (12.0-16.0); MEAN CORPUSCULAR HEMOGLOBIN 31.9 pg (28-32); MEAN CORPUSCULAR HGB CONC 35.1 g/dL (31-35); MEAN CORPUSCULAR VOLUME 90.9 fL (81-99); PLATELET COUNT 132 x10e3/uL (140-360); RED BLOOD COUNT 2.76 x10e6/uL (3.6-5.1); RED CELL DISTRIBUTION WIDTH 13.5 % (11.7-14.4)
[2018-08-02 12:06] LABS: CALCIUM 8.4 mg/dL (8.4-10.2); CREATININE, SERUM 1.27 mg/dL (0.57-1.11)
[2018-08-02 12:27] LABS: ANISOCYTOSIS SLIGHT; EOSINOPHILS % (MANUAL) 2 % (0-7); HYPOCHROMASIA SLIGHT; LYMPHOCYTES % (MANUAL) 21 % (19-48); METAMYELOCYTES % (MANUAL) 2 % (0-0); MONOCYTES % (MANUAL) 5 % (3.4-9.0); MYELOCYTES % (MANUAL) 1 % (0-0); NEUTROPHILS % (MANUAL) 69 % (40-74); PLATELET ESTIMATE SLIGHTLY DECREASED; RBC MORPHOLOGY COMMENT NORMAL
[2018-08-02 12:28] LABS: PLATELET MORPHOLOGY COMMENT NORMAL
[2018-08-02] MEDS: FAMOTIDINE 20 MG TAB PO SCH (16:47)
[2018-08-02] MEDS: LISINOPRIL 20 MG TAB PO SCH (16:47)
--- NOTE | 2018-08-02 17:46 | Progress Note ---
DATE: INTERNAL MEDICINE PROGRESS NOTE SUBJECTIVE: Patient is very sleepy. Not eating well. Barely arousable. She has had a right facial deviation apparently since the weekend. Patient is not participating in physical therapy too much. PHYSICAL EXAM: VITAL SIGNS: Blood pressure 164/71. Temperature 98 degrees. Heart rate 77 per minute. Respiratory rate is 18 per minute. HEART: Shows regular rhythm, normal S1 and S2 sounds. LUNGS: Clear bilaterally. ABDOMEN: Soft. EXTREMITIES: Show no evidence of cyanosis, edema or trauma. NEUROLOGIC: She is alert, oriented times 2. She has right facial deviation. Motor strength is 5/5 on upper and lower extremities. There are no focal deficits on the arms or legs. BLOOD WORK: We have a BMP: Sodium 141, potassium 4.0, chloride 110, CO2 18, BUN 23, creatinine 1.27, glucose 103. On the CBC: White blood count 6.59, hemoglobin 8.8, hematocrit 25.1, platelet count 132,000. PT 12.5, INR 0.86, PTT is 31.7. AST 25, ALT 23, total bilirubin 0.7 and alkaline phosphatase of 89. FINAL IMPRESSION: 1. Status post cerebellar/cerebrovascular accident. 1. Uncontrolled hypertension with hypertensive nephropathy. 2. Anorexia. 3. 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 4. Chronic anemia. 5. Chronic renal failure stage 3. PLAN OF TREATMENT: We are going to repeat another MRI. We are going to continue physical and occupational therapy. I talked with the family members about the possibility of a PEG tube. We are going to start her on Provigil 200 mg daily. Continue ceftriaxone 1 gram IV once a day. Amlodipine 10 mg daily. Claritin 10 mg daily. Lisinopril 40 mg daily. Bystolic 10 mg daily. Ambien 10 mg at night. Continue furosemide 20 mg daily. Plavix 75 mg daily. Hydralazine 25 mg 3 times a day. Requip 0.25 mg daily. Continue Pepcid 20 mg daily. Continue with heparin 5000 units subcutaneously twice a day for DVT prophylaxis. Remeron 7.5 mg daily for anorexia. Lipitor 80 mg daily. Hydralazine 10 mg IV q.4. hours as needed. Patient might not qualify for inpatient rehab, most likely a alf facility. The case has been discussed with the nurse at the bedside and also with the family, the daughter. Job#: [id number] EV
[2018-08-02] MEDS: ROPINIROLE HCL 0.25 MG TAB PO SCH (18:11)
[2018-08-02 18:17] LABS: BILIRUBIN,URINE 1+ (NEGATIVE); CLARITY,URINE SL CLOUDY (CLEAR); COLOR,URINE YELLOW (YELLOW); KETONES,URINE 1+ (NEGATIVE); LEUKOCYTE ESTERASE ,URINE TRACE (NEGATIVE); NITRITE,URINE NEGATIVE (NEGATIVE); PROTEIN,URINE DIPSTICK NEGATIVE (NEGATIVE); URINE UROBILINOGEN 0.2 mg/dL (0.2 - 1)
[2018-08-02 18:30] LABS: BACTERIA,URINE FEW /HPF; EPITHELIAL CELLS,URINE FEW /LPF; MUCUS,URINE FEW (RARE); YEAST,URINE MODERATE
[2018-08-02] MEDS: CEFTRIAXONE SOD 1 GM VIAL IV SCH (20:14)
[2018-08-02] MEDS: ATORVASTATIN 40 MG TAB PO SCH (20:25)
[2018-08-02] MEDS: LORATADINE 10 MG TAB PO SCH (20:25)
[2018-08-03] VITALS (7 sets, daily range): BP systolic 131–162; BP diastolic 59–72
[2018-08-03 05:24] LABS: ANION GAP 18.3 mmol/L (8-16); CALCIUM 9.2 mg/dL (8.4-10.2); CREATININE, SERUM 1.3 mg/dL (0.57-1.11); POTASSIUM 4.3 mmol/L (3.5-5.1)
[2018-08-03] MEDS: INSULIN REGULAR, HUMAN 100 UNIT/1 ML 3ML VIAL SQ SCH ×4 (07:30→20:46)
[2018-08-03] MEDS: CLOPIDOGREL BISULFATE 75 MG TAB PO SCH (08:20)
[2018-08-03] MEDS: FUROSEMIDE 20 MG TAB PO SCH (08:20)
[2018-08-03] MEDS: AMLODIPINE BESYLATE 10 MG TAB PO SCH (08:20)
[2018-08-03] MEDS: HYDRALAZINE HCL 25 MG TAB PO SCH ×3 (08:20→20:44)
[2018-08-03] MEDS: NEBIVOLOL 10 MG TAB PO SCH (08:20)
[2018-08-03] MEDS: HEPARIN SOD (PORCINE) 5,000 UNIT/ML VIAL SC SCH ×2 (08:27→20:47)
[2018-08-03] MEDS ORDERED: MODAFINIL 100 MG TAB PO SCH (09:00)
--- NOTE | 2018-08-03 13:37 | Diagnostic Imaging Report ---
EXAMINATION: MRI of the brain without contrast. HISTORY: New onset weakness, cerebrovascular accident. COMPARISON: Brain MRI 07/26/2018 TECHNIQUE: Sagittal T2; axial DWI, T2, FLAIR, T1-IR, T2 gradient echo; coronal FLAIR. IMAGE QUALITY: Magnetic susceptibility artifact significantly limits the evaluation of the WI sequence. FINDINGS: Parenchyma: 1. Persistent focal area of low T1, high T2/FLAIR and restricted diffusion along the left lateral pj/middle cerebellar peduncle without significant mass effect or surrounding edema. 2. A smaller similar area of low T1 and FLAIR hyperintensity along the right middle cerebellar ankle is unchanged. 3. Persistent mild chronic microvascular ischemic changes and small chronic right posterior cerebellar cortical infarct. 4. No mass, hemorrhage, acute or chronic infarcts. Skull: Unremarkable. Vessels: Expected flow voids present in the major arteries and dural sinuses. Extra-axial spaces: No abnormal signal intensity or mass effect. Brain volume: Within normal limits for age. Ventricles: No hydrocephalus or displacement. Foramen magnum: Unremarkable. Sella: Unremarkable. Paranasal / mastoid sinuses: Persistent partial opacification of the left masseter cells. IMPRESSION: 1. Interval increase in size of previously seen hyperintense/restricted diffusion lesion in the left lateral pj/middle cerebellar peduncle as well as the right middle cerebellar peduncle lesion, the differential diagnosis would include subacute ischemia, metabolic disorder, toxic exposure, PRES, neurodegenerative process, PML or infectious encephalitis among other causes. If clinically indicated correlation with CSF is advised. 2. No intracranial hemorrhage, hydrocephalus or midline shift. Signed by: Dr. Gwen Seals M.D. on 08/03/2018 1:34 PM
[2018-08-03 16:47] LABS: ALBUMIN 3.2 g/dL (3.5-5.0); BILIRUBIN,DIRECT 0.3 mg/dL (0.0-0.5)
[2018-08-03] MEDS: LISINOPRIL 20 MG TAB PO SCH (17:02)
[2018-08-03] MEDS: FAMOTIDINE 20 MG TAB PO SCH (17:02)
[2018-08-03] MEDS: ROPINIROLE HCL 0.25 MG TAB PO SCH (17:03)
[2018-08-03 17:08] LABS: THYROID STIMULATING HORMONE 1.451 uIU/mL (0.350-4.940)
[2018-08-03] MEDS: CEFTRIAXONE SOD 1 GM VIAL IV SCH (17:15)
--- NOTE | 2018-08-03 18:33 | Progress Note ---
DATE: INTERNAL MEDICINE PROGRESS NOTE SUBJECTIVE: Patient is more alert today. PHYSICAL EXAM: VITAL SIGNS: Blood pressure 162/70. Temperature 97.2. Heart rate 73 per minute. Respiratory rate 18 per minute. Oxygen saturation 100%. HEART: Shows regular rhythm. Normal S1 and S2 sounds. LUNGS: Are clear bilaterally. ABDOMEN: Soft. EXTREMITIES: Show no evidence of cyanosis, edema or trauma. The MRI showed progression of the prior cerebellar cerebrovascular accident. On the BMP: Sodium 143, potassium 4.3, chloride 111, CO2 18, BUN 23, creatinine 1.30, glucose 85. On the CBC: White blood count 6.59, hemoglobin 8.8, hematocrit 35.1, platelet count 132,000. PT 12.5, PTT 31.7, INR 0.86. AST 38, ALT 28, total bilirubin 0.7, alkaline phosphatase 86. FINAL IMPRESSION: 1. Left cerebellar cerebrovascular accident. 2. Uncontrolled hypertension with hypertensive nephropathy. 3. Anorexia. 4. Hepatic encephalopathy. 5. Chronic anemia. 6. Chronic renal failure stage 3. 7. Sleepiness most likely secondary to the Remeron. PLAN OF TREATMENT: Continue Zofran 4 mg IV q.4 h. as needed. Amlodipine 10 mg daily. Furosemide 20 mg daily. Plavix 75 mg daily. Continue monitoring blood sugar a.c. and nightly. Continue Tylenol 650 mg q.4 h. as needed for pain or fever. Pepcid 20 mg daily. Heparin 5000 units subcutaneously twice a day. Ceftriaxone 1 gram IV once a day for the UTI. Lipitor 80 mg daily. Hydralazine 10 mg IV q.4 h. as needed for hypertension. Ambien 5 mg at night p.r.n. for sleep. Hydralazine 50 mg 3 times a day. Lisinopril 40 mg daily. Bystolic 10 mg daily. Requip 0.25 mg daily. Continue physical therapy. Case discussed with the daughter. Time spent 45 minutes. Job#: [id number] ALLISON
[2018-08-03] MEDS: ATORVASTATIN 40 MG TAB PO SCH (20:46)
[2018-08-03] MEDS: LORATADINE 10 MG TAB PO SCH (20:46)
[2018-08-04] VITALS (8 sets, daily range): BP systolic 134–165; BP diastolic 60–93
[2018-08-04] MEDS: INSULIN REGULAR, HUMAN 100 UNIT/1 ML 3ML VIAL SQ SCH ×4 (08:30→20:36)
[2018-08-04] MEDS: CLOPIDOGREL BISULFATE 75 MG TAB PO SCH (08:54)
[2018-08-04] MEDS: HYDRALAZINE HCL 25 MG TAB PO SCH ×3 (08:54→20:35)
[2018-08-04] MEDS: FUROSEMIDE 20 MG TAB PO SCH (08:54)
[2018-08-04] MEDS: NEBIVOLOL 10 MG TAB PO SCH (08:54)
[2018-08-04] MEDS: AMLODIPINE BESYLATE 10 MG TAB PO SCH (08:54)
[2018-08-04] MEDS: MODAFINIL 100 MG TAB PO SCH (16:03)
[2018-08-04] MEDS: FAMOTIDINE 20 MG TAB PO SCH (18:13)
[2018-08-04] MEDS: CEFTRIAXONE SOD 1 GM VIAL IV SCH (18:13)
[2018-08-04] MEDS: ROPINIROLE HCL 0.25 MG TAB PO SCH (18:13)
[2018-08-04] MEDS: LISINOPRIL 20 MG TAB PO SCH (18:13)
[2018-08-04] MEDS: LORATADINE 10 MG TAB PO SCH (20:35)
[2018-08-04] MEDS: ATORVASTATIN 40 MG TAB PO SCH (20:35)
--- NOTE | 2018-08-04 23:44 | Discharge Summary ---
A 73-year-old female with a past medical history positive for CVA, history of diabetes and hypertension who came here with confusion and difficulty walking. The patient was found to have cerebellar CVA. Started on antiplatelet agents which is Plavix 75 mg daily. MRI of the head showed evidence of the cerebellar CVA. The patient had a very poor appetite. We started her on Remeron but then she became very sleepy and had to discontinue Remeron. After the Remeron was discontinued, she started waking up. She is still not eating well, but the family is refusing the PEG tube. They prefer her to wait to see if she can be eating better before we decide about the PEG tube. She also had a history of urinary retention. Armas catheter was ordered by Dr. Rjoas. Dr. Anali Fierro also saw her from the neurology point of view. Patient going to be transferred to [facility]. PHYSICAL EXAM: VITAL SIGNS: Blood pressure 146/65, temperature 96.6, heart rate 72 per minute. Respiratory rate 20 per minute. Oxygen saturation 100%. HEART: Regular rhythm. No murmur. No extra sounds. LUNGS: Clear bilaterally. ABDOMEN: Soft. EXTREMITIES: Show no evidence of cyanosis, edema or trauma. LABORATORY DATA: On the BMP, sodium 143, potassium 4.3, chloride 111. CO2 18. BUN 23, creatinine 1.30. Glucose 85. CBC showed white blood count 6.59, hemoglobin 8.8, hematocrit 25.1, platelet count 152,000. PT 12.5, INR 0.86. PTT 31.7. AST 30. ALT 28. Total bilirubin 0.7, alkaline phosphatase 86. FINAL IMPRESSION 1. Status post cerebellar cerebrovascular accident. 2. Poor appetite. 3. Chronic renal insufficiency stage 2 to 3. 4. History of hypertension. 5. Hypercholesterolemia. PLAN OF TREATMENT: Continue Norvasc 10 mg daily. Claritin 10 mg daily. Furosemide 20 mg daily. Plavix 75 mg daily. Ceftriaxone 1 gram IV once a day for UTI. Pepcid 20 mg daily. Hydralazine 10 mg IV q.4 hours as needed for hypertension. Ambien 5 mg at night p.r.n. for sleep. Hydralazine 50 mg 3 times a day. Lipitor 80 mg daily. Bystolic 10 mg daily. Requip 0.5 mg at bedtime. Provigil 100 mg twice a day because of sleepiness. Continue lisinopril 40 mg daily. Continue Tylenol 350 mg q.4 hours as needed. The patient is going to be transferred to [facility] tomorrow. JOSE GRACE MD Job#: [id number] GH
[2018-08-05] VITALS: BP 152/67
[2018-08-05] MEDS: ONDANSETRON HCL INJ 2 MG/ML VIAL IV PRN (03:46)
[2018-08-05 04:00] VITALS: BP 138/66
[2018-08-05] MEDS: INSULIN REGULAR, HUMAN 100 UNIT/1 ML 3ML VIAL SQ SCH ×3 (07:30→16:30)
[2018-08-05 08:24] VITALS: BP 153/77
[2018-08-05 08:50] VITALS: BP 153/77
[2018-08-05] MEDS: MODAFINIL 100 MG TAB PO SCH ×2 (08:50→16:58)
[2018-08-05] MEDS: CLOPIDOGREL BISULFATE 75 MG TAB PO SCH (08:50)
[2018-08-05] MEDS: HYDRALAZINE HCL 25 MG TAB PO SCH ×2 (08:50→15:34)
[2018-08-05] MEDS: FUROSEMIDE 20 MG TAB PO SCH (08:50)
[2018-08-05] MEDS: NEBIVOLOL 10 MG TAB PO SCH (08:50)
[2018-08-05] MEDS: AMLODIPINE BESYLATE 10 MG TAB PO SCH (08:50)
[2018-08-05 12:44] VITALS: BP 128/67
[2018-08-05] MEDS: FAMOTIDINE 20 MG TAB PO SCH (16:55)
[2018-08-05] MEDS: LISINOPRIL 20 MG TAB PO SCH (16:57)
[2018-08-05] MEDS: CEFTRIAXONE SOD 1 GM VIAL IV SCH (16:58)
[2018-08-05 17:17] VITALS: BP 132/64
[2018-08-05] MEDS: ROPINIROLE HCL 0.25 MG TAB PO SCH (17:34)
--- NOTE | 2018-08-05 17:59 | Discharge Summary ---
HISTORY OF PRESENT ILLNESS: A 73-year-old female who has a past medical history positive for a prior cerebellar CVA, history of hypertension, history of diabetes mellitus type 2. Patient came to the hospital because she was found to be more confused with difficulty walking and slurred speech. Patient was found to have a new cerebellar CVA. Patient was started on antiplatelet agents and lipid-lowering agents. Patient is going to go to [facility] today. PHYSICAL EXAM: HEART: Shows regular rhythm. Normal S1 and S2 sounds. LUNGS: Clear bilaterally. ABDOMEN: Soft. EXTREMITIES: Show no evidence of cyanosis, edema or trauma. VITAL SIGNS: Blood pressure 128/67, temperature to 98.2, heart rate is 78 per minute, respiratory rate 18 per minute. Oxygen saturation 97%. LABORATORY STUDIES: On the blood work we have a BMP: Sodium 143, potassium 4.3, chloride 111, CO2 18, BUN 23, creatinine 1.30, glucose 85. On the CBC: White blood count 6.59, hemoglobin 8.8, hematocrit 35.1, platelet 132,000. PT 12.5, PTT 31.7, INR 0.86. AST 30, ALT 28, total bilirubin 0.7, alkaline phosphatase 86. FINAL IMPRESSIONS: 1. Status post left cerebellar cerebrovascular accident. 2. Hypertension with chronic renal insufficiency. 3. Urinary tract infection. 4. Hypercholesterolemia. 5. Encephalopathy which seems to be resolving. 6. Diabetes mellitus type 2 with diabetic nephropathy. PLAN OF TREATMENT: Continue amlodipine 10 mg daily. Claritin 10 mg daily as needed. Furosemide 20 mg daily. Plavix 75 mg daily. Dextrose as needed. D50 as needed for hypoglycemia. Ceftriaxone 1 gram IV once a day, which can be discontinued. Pepcid 20 mg daily. Hydralazine 10 mg IV q.4 hours as needed for hypertension. Ambien 5 mg at night p.r.n. for sleep. Hydralazine 50 mg 3 times a day. Lipitor 80 mg daily. Bystolic 10 mg daily. Requip 0.25 mg daily. Provigil 100 mg twice a day. Lisinopril 40 mg daily. Continue monitoring blood sugar a.c. and nightly. Continue Tylenol 650 mg q.4 hours as needed. Patient [facility] for [facility] purposes to hopefully increase her endurance enough for her to be able to go home. JOSE GRACE MD Job#: [id number] EV
== END 2018-08-05 18:07 | DRG 65 ==
LOC: ER 12:07 → ERHOLD 18:12 → MED/SURG 20:12 → OBSVTOIN 07-27 12:06
PROVIDERS: ADMIT Internal Medicine; ATTEND Internal Medicine
DX: I63.9 Cerebral infarction, unspecified (principal); I69.351 Hemiplegia and hemiparesis following cerebral infarction affecting right dominant side; N17.9 Acute kidney failure, unspecified; I67.4 Hypertensive encephalopathy; I13.0 Hypertensive heart and chronic kidney disease with heart failure and stage 1 through stage 4 chronic kidney disease, or unspecified chronic kidney disease; I50.32 Chronic diastolic (congestive) heart failure; N18.3 Chronic kidney disease, stage 3 (moderate); R63.0 Anorexia; Z68.24 Body mass index [BMI] 24.0-24.9, adult; E11.22 Type 2 diabetes mellitus with diabetic chronic kidney disease; E78.5 Hyperlipidemia, unspecified; E11.319 Type 2 diabetes mellitus with unspecified diabetic retinopathy without macular edema; Z79.4 Long term (current) use of insulin; I69.322 Dysarthria following cerebral infarction; R33.9 Retention of urine, unspecified; D64.9 Anemia, unspecified; R31.29 Other microscopic hematuria; K72.90 Hepatic failure, unspecified without coma; T43.025A Adverse effect of tetracyclic antidepressants, initial encounter; G47.09 Other insomnia; E11.40 Type 2 diabetes mellitus with diabetic neuropathy, unspecified; B96.1 Klebsiella pneumoniae [K. pneumoniae] as the cause of diseases classified elsewhere; E11.21 Type 2 diabetes mellitus with diabetic nephropathy; Z74.09 Other reduced mobility
CPT/HCPCS: 36415; 70450; 70544; 70551; 71045; 76770; 80048; 80053; 80061; 80076; 81001; 82140; 82550; 82553; 82948; 83036; 83605; 83735; 84443; 84484; 85007; 85025; 85027; 85610; 85730; 87040; 87086; 87186; 92523; 93005; 93306; 93880; 96372; 97139; G0378; J0360; J0696; J1644; J2405; J7030

== ENCOUNTER → 2018-09-21 | Outpatient (CLI) | payer MEDICARE, OTHER ==
[~2018-09-21] MED LIST: AMLODIPINE BESY10 MG PO; AMLODIPINE BESYL5 MG PO; ASPIRIN81 MG PO; ATORVASTATIN CA20 MG PO; ATORVASTATIN CA80 MG PO; CLOPIDOGREL75 MG PO; DIAZEPAM5 MG PO; FAMOTIDINE20 MG PO; FLUOXETINE HCL20 MG PO; FUROSEMIDE20 MG PO; FUROSEMIDE40 MG PO; GLIMEPIRIDE2 MG PO; HYDRALAZINE HCL50 MG PO; HYDROCORTISONE10 MG PO; LASIX20 MG PO; LISINOPRIL20 MG PO; LISINOPRIL40 MG PO; MAGOX 400400 MG PO; METHYLPHENIDATE5 MG PO; METOPROLOL SUCC50 MG PO; MINOCYCLINE HC100 MG PO; NAMENDA10 MG PO; ROPINIROLE HC0.25 MG PO; ZANTAC150 MG PO; ZYRTEC10 M3 PO
--- NOTE | 2018-09-21 16:53 | Diagnostic Imaging Report ---
Left shoulder, 2 views. History: Pain. Comparison: <None available>. Discussion: The soft tissues are normal. The osseous structures are intact without evidence of fracture or dislocation. Mild glenoid irregularity is degenerative in appearance. There is no evidence of AC separation. The glenohumeral joint is within normal limits. IMPRESSION: No acute radiographic abnormality. Signed by: Dr. Bear Campbell DO on 09/21/2018 4:49 PM
== END ==
LOC: EDBD 14:52 → RAD 14:52
PROVIDERS: ATTEND Internal Medicine
DX: M25.512 Pain in left shoulder (principal)

== ENCOUNTER 2018-09-24 07:23 | Observation (INO) | payer MEDICARE, OTHER ==
[~2018-09-24] VITALS: Ht 152.4 cm; Wt 57.4 kg
[~2018-09-24 07:23] MED LIST changes: -AMLODIPINE BESYL5 MG PO; -ATORVASTATIN CA80 MG PO; -CLOPIDOGREL75 MG PO; -DIAZEPAM5 MG PO; -FAMOTIDINE20 MG PO; -FLUOXETINE HCL20 MG PO; -FUROSEMIDE20 MG PO; -FUROSEMIDE40 MG PO; -HYDRALAZINE HCL50 MG PO; -HYDROCORTISONE10 MG PO; -LISINOPRIL40 MG PO; -MAGOX 400400 MG PO; -METHYLPHENIDATE5 MG PO; -METOPROLOL SUCC50 MG PO; -MINOCYCLINE HC100 MG PO; -NAMENDA10 MG PO; -ROPINIROLE HC0.25 MG PO
[2018-09-24] MEDS ORDERED: SODIUM CHLORIDE 0.9% 1000ML 1,000 ML IV STA (07:34)
[2018-09-24] MEDS ORDERED: ONDANSETRON HCL INJ 2 MG/ML VIAL IV ONE ×2 (07:45→21:17)
[2018-09-24] MEDS ORDERED: FAMOTIDINE 20 MG/2 ML VIAL IV ONE (07:45)
[2018-09-24] MEDS ORDERED: DIATRIZOATE MEGL/DIATRIZOA SOD 30 ML BTL PO ONE (07:46)
[2018-09-24] MEDS ORDERED: HYDROMORPHONE 1MG/1ML INJ IV PRN (08:05)
[2018-09-24] MEDS ORDERED: NAMENDA10 MG PO (08:19)
[2018-09-24] MEDS ORDERED: MINOCYCLINE HC100 MG PO (08:19)
[2018-09-24] MEDS ORDERED: LISINOPRIL40 MG PO (08:19)
[2018-09-24] MEDS ORDERED: MAGOX 400400 MG PO (08:19)
[2018-09-24] MEDS ORDERED: CLOPIDOGREL75 MG PO (08:19)
[2018-09-24] MEDS ORDERED: AMLODIPINE BESYL5 MG PO (08:19)
[2018-09-24] MEDS ORDERED: METHYLPHENIDATE5 MG PO (08:19)
[2018-09-24] MEDS ORDERED: METOPROLOL SUCC50 MG PO (08:19)
[2018-09-24] MEDS ORDERED: FLUOXETINE HCL20 MG PO (08:19)
[2018-09-24] MEDS ORDERED: HYDRALAZINE HCL50 MG PO (08:19)
[2018-09-24] MEDS ORDERED: FAMOTIDINE20 MG PO (08:19)
[2018-09-24] MEDS ORDERED: FUROSEMIDE20 MG PO (08:19)
[2018-09-24] MEDS ORDERED: ATORVASTATIN CA80 MG PO (08:19)
[2018-09-24 08:31] LABS: BASOPHILS % 0.3 % (0.0-1.0); EOSINOPHILS # (AUTO) 0.2 (0.0-0.4); EOSINOPHILS % 2.7 % (0.0-6.0); HEMATOCRIT 28.1 % (34.2-44.1); HEMOGLOBIN 9.7 g/dL (12.0-16.0); LYMPHOCYTES # (AUTO) 1.2 (1.0-3.2); LYMPHOCYTES % 18.1 % (18.0-39.1); MEAN CORPUSCULAR HGB CONC 34.5 g/dL (31-35); MEAN CORPUSCULAR VOLUME 95.6 fL (81-99); MONOCYTES # (AUTO) 0.5 (0.2-0.8); MONOCYTES % 7.9 % (4.4-11.3); NEUTROPHILS # (AUTO) 4.7 (2.1-6.9); NEUTROPHILS % 70.6 % (38.7-80.0); PLATELET COUNT 162 x10e3/uL (140-360); RED BLOOD COUNT 2.94 x10e6/uL (3.6-5.1); RED CELL DISTRIBUTION WIDTH 13.8 % (11.7-14.4)
[2018-09-24] MEDS: HYDROMORPHONE 2MG/ML 2 MG/ML ML IV PRN ×3 (08:33→19:07)
[2018-09-24 08:44] LABS: BILIRUBIN,URINE NEGATIVE (NEGATIVE); CLARITY,URINE HAZY (CLEAR); COLOR,URINE YELLOW (YELLOW); KETONES,URINE TRACE (NEGATIVE); LEUKOCYTE ESTERASE ,URINE NEGATIVE (NEGATIVE); NITRITE,URINE NEGATIVE (NEGATIVE); PROTEIN,URINE DIPSTICK NEGATIVE (NEGATIVE); URINE UROBILINOGEN 0.2 mg/dL (0.2 - 1)
[2018-09-24 08:47] LABS: WBC,URINE (MAN) 0-5 /HPF (0-5)
[2018-09-24 08:49] LABS: BACTERIA,URINE FEW /HPF; EPITHELIAL CELLS,URINE FEW /LPF; HYALINE CASTS 0-1 (0-1); MUCUS,URINE RARE (RARE); YEAST,URINE FEW
[2018-09-24 08:51] LABS: ALBUMIN 3.5 g/dL (3.5-5.0); ALBUMIN/GLOBULIN RATIO 1.1 (0.8-2.0); ANION GAP 19.6 mmol/L (8-16); CALCIUM 9.1 mg/dL (8.4-10.2); CREATININE, SERUM 2.48 mg/dL (0.57-1.11); POTASSIUM 3.6 mmol/L (3.5-5.1)
--- NOTE | 2018-09-24 10:25 | Diagnostic Imaging Report ---
EXAM: CT Abdomen and Pelvis WITHOUT contrast INDICATION: Rectal pain. Constipation. COMPARISON: None. TECHNIQUE: Abdomen and pelvis were scanned utilizing a multidetector helical scanner from the lung base to the pubic symphysis without administration of IV contrast. Absence of intravenous contrast decreases sensitivity for detection of focal lesions and vascular pathology. Coronal and sagittal reformations were obtained. Routine protocol was performed. IV CONTRAST: None. ORAL CONTRAST: Water RADIATION DOSE: Total DLP: 206.51 mGy*cm Estimated effective dose: (DLP x 0.015 x size factor) mSv COMPLICATIONS: None FINDINGS: LINES and TUBES: None. LOWER THORAX: Mild bibasilar dependent atelectasis. HEPATOBILIARY: No focal hepatic lesions. No biliary ductal dilation. GALLBLADDER: No radio-opaque stones or sludge. No wall thickening. SPLEEN: No splenomegaly. PANCREAS: Diffuse atrophy. No focal masses or ductal dilatation. ADRENALS: Mild thickening of the left adrenal gland with low attenuation suggestive of the presence of small adenomas versus hyperplasia. No right adrenal nodules. KIDNEYS/URETERS: No hydronephrosis. No cystic or solid mass lesions. No stones. GI TRACT: No abnormal distention, wall thickening, or evidence of bowel obstruction. Appendix is not visualized. There is a moderate volume of stool within the rectum. PELVIC ORGANS/BLADDER: The urinary bladder is decompressed by a Armas catheter. Status post hysterectomy. LYMPH NODES: No lymphadenopathy. VESSELS: There is mild to moderate atherosclerotic disease in the aorta and major arterial branches. PERITONEUM / RETROPERITONEUM: No free air or fluid. BONES: There are degenerative changes in the lumbar spine. SOFT TISSUES: Unremarkable. IMPRESSION: 1. Moderate volume within the rectum. No bowel obstruction. 2. No acute abdominal pelvic abnormality. Signed by: Dr. Yolanda De La Garza M.D. on 09/24/2018 10:21 AM
[2018-09-24] MEDS ORDERED: ACETAMINOPHEN 325 MG TAB PO PRN (11:00)
[2018-09-24] MEDS ORDERED: DIPHENHYDRAMINE HCL INJ 50 MG/ML VIAL IV PRN (11:00)
[2018-09-24] MEDS ORDERED: ONDANSETRON HCL INJ 2 MG/ML VIAL IV PRN ×2 (11:00→21:30)
[2018-09-24] MEDS ORDERED: MORPHINE SULFATE 2 MG/ML SYR IV PRN ×2 (11:00)
[2018-09-24] MEDS ORDERED: LACTULOSE SYRUP 20 GM/30 ML UDC PO PRN (11:00)
[2018-09-24] MEDS ORDERED: HYDROMORPHONE 2MG/ML 2 MG/ML ML IV PRN (11:15)
[2018-09-24] MEDS ORDERED: MINERAL OIL 132 ML BTL PR ONE (11:15)
[2018-09-24] MEDS: SODIUM CHLORIDE 0.9% 1000ML 1,000 ML IV SCH ×2 (12:25→20:45)
[2018-09-24] MEDS ORDERED: BISACODYL 10 MG SUPP PR ONE (14:15)
[2018-09-24] MEDS ORDERED: BISACODYL 10 MG SUPP PR PRN (14:15)
[2018-09-24 15:00] VITALS: BP 156/68
--- NOTE | 2018-09-24 15:06 | History and Physical ---
CHIEF COMPLAINT: Abdominal pain and generalized weakness. HISTORY OF PRESENT ILLNESS: This is a 73-year-old white woman who presents [facility] emergency room with a 2-3 day history of worsening abdominal pain and constipation. The patient states she has a history of chronic constipation. The patient stated she was trying MiraLAX at home with only minimal success. The patient unfortunately has a history of cerebrovascular disease, specifically left cerebral stroke in May 2018 and bilateral cerebellar strokes in July 2018. The patient has residual left hemiparesis from her strokes. The patient has been predominately bedbound since May 2018 according to her adult daughter who is present. On this admission to the emergency room, the patient was found to have a BUN and creatinine of 34 and 2.48 respectively. In July of 2018, the patient's BUN and creatinine was 23 and 1.3 respectively. In the emergency room, the patient was found to have a white blood cell count of 6600 with 70% segmented neutrophils. The patient's hemoglobin was 9.7 g percent. The patient underwent a CT of the abdomen and pelvis without contrast in the emergency room on this admission, which revealed moderate stool volume in the rectum, but no bowel obstruction appreciated. No other acute intra-abdominal pelvic abnormalities appreciated. The patient was admitted for further evaluation and treatment. REVIEW OF SYSTEMS GENERAL: Worsening weakness in the last 2-3 days. No fever or chills. HEENT: No headaches. No vision changes. CARDIOVASCULAR: No chest pain. GI: Chronic constipation, but minimal bowel movement in the last 2-3 days according to the adult daughter. No melena or hematochezia. No nausea or vomiting. : Has a history of recurrent urinary tract infections. No evidence of urinary tract infection in the emergency room. NEUROMUSCULAR: The patient has been bedbound/wheelchair bound since her last stroke in July 2018. ALLERGIES 1. METFORMIN. 2. MORPHINE. 3. TRAMADOL. PAST MEDICAL HISTORY 1. Cerebrovascular disease with left hemiparesis (left cerebral stroke in May 2018 and bilateral cerebral strokes in July 2018). 2. Hypertensive heart disease. 3. Chronic constipation. 4. Stage 3 chronic kidney disease. 5. Dyslipidemia. 6. GERD. 7. Type 2 Diabetes. FAMILY HISTORY: No family history of stroke. SOCIAL HISTORY: She is a . She lives with her adult daughter. No history of tobacco or alcohol use. SURGICAL HISTORY 1. Bilateral tubal ligation. 2. Hysterectomy. 3. Benign thyroid resection. MEDICATIONS 1. Amlodipine 5 mg a day. 2. Atorvastatin 80 mg at bedtime. 3. Zyrtec 10 mg daily. 4. Clopidogrel 75 mg daily. 5. Famotidine 20 mg daily. 6. Fluoxetine 20 mg daily. 7. Furosemide 10 mg daily. 8. Glimepiride 2 mg daily. 9. Hydralazine 50 mg every 8 hours. 10. Lisinopril 40 mg daily. 11. Magnesium oxide 400 mg t.i.d. with meals. 12. Namenda 10 mg daily. 13. Methylphenidate 5 mg daily. 14. Metoprolol succinate 50 mg daily. 15. Minocycline 100 mg b.i.d. PHYSICAL EXAMINATION GENERAL: She is awake and alert. She answers questions slowly. She gets confused easily. Her adult daughter is at bedside, who provides most of the history. VITALS: Blood pressure is 160/59, pulse 82, respiratory rate 18, oxygen saturation 100% on room air, temperature 98.7. Height is 5 feet 1 inches, weight 133 pounds, BMI 24. INTEGUMENT: Skin is warm and dry. No pallor or conjunctivitis appreciated. HEENT: Anicteric sclerae. Dry mucous membranes. NECK: Supple. CARDIOVASCULAR: Distant heart sounds. Regular rate and rhythm. LUNGS: No rales. No rhonchi. No wheezing. ABDOMEN: Soft. Normal bowel sounds heard. No masses appreciated. EXTREMITIES: No edema or deformity. NEUROLOGIC: She has left-sided weakness more pronounced on the left arm. IMPRESSION 1. Sdxor-bt-ltdtkcy renal failure. 2. Chronic constipation. 3. Stool impaction (rectal). 4. Cerebrovascular disease with left-sided hemiparesis (left cerebellar stroke in May 2018, bilateral cerebellar stroke in July 2018). 5. Hypertensive heart disease. 6. Physical debility. PLAN 1. Will hold TRINIDAD inhibitors and diuretics. 2. Intravenous fluids. 3. Follow renal function. 4. Dulcolax suppository. 5. Order chest x-ray. I spent an hour in the care of the patient. Job#: [id number] MARY ANN GARIBAY
--- NOTE | 2018-09-24 15:38 | Diagnostic Imaging Report ---
EXAMINATION: CHEST SINGLE (PORTABLE) INDICATION: CHF. COMPARISON: 07/26/2018. FINDINGS: TUBES and LINES: None. LUNGS: Mild elevation of the lower right hemidiaphragm. There is no evidence of pneumonia or pulmonary edema. PLEURA: No pleural effusion or pneumothorax. HEART AND MEDIASTINUM: The cardiomediastinal silhouette is unremarkable. BONES AND SOFT TISSUES: No acute osseous lesion. Soft tissues are unremarkable. UPPER ABDOMEN: No free air under the diaphragm. IMPRESSION: No acute thoracic abnormality. Signed by: Dr. Yolanda De La Garza M.D. on 09/24/2018 3:34 PM
--- NOTE | 2018-09-24 16:06 | Consultation ---
DATE OF CONSULTATION: September 24, 2018 REASON FOR CONSULTATION: Acute kidney failure. This 72-year-old female, status post CVA, was admitted with not eating, not drinking. Over the last few days she was found to have increased creatinine. PAST MEDICAL HISTORY: 1. Type 2 diabetes mellitus. 2. Hypertension. 3. CVA in May 2018. 4. Neurologic residual. 5. Urinary retention. 6. Urinary tract infection. 7. Chronic kidney disease, stage 3. ALLERGIES: TRAMADOL, MORPHINE, METFORMIN. HOME MEDICATIONS: Please see list. SOCIAL HISTORY: Lives with family. FAMILY HISTORY: Paternal and maternal grandparents are . Father is from MVA. Mother . PAST SURGICAL HISTORY: 1. Partial hysterectomy. 2. Removal of growth on the thyroid gland. 3. Bilateral tubal ligation. REVIEW OF SYSTEMS: Decreased appetite. Positive for weakness. No dysuria, no hematuria. The patient is with a Armas catheter. Has a history of urinary retention. Neurologically, no worsening weakness. Remains with residual from her CVA. PHYSICAL EXAMINATION GENERAL: Alert, following commands. VITAL SIGNS: Blood pressure 142/64. HEENT: Pupils equal, reactive to light and accommodation. NECK: No JVD, no bruit. LUNGS: No rhonchi, no rales. HEART: Regular rate and rhythm. No S3, no S4. ABDOMEN: Nontender, nondistended. No hepatosplenomegaly. EXTREMITIES: No clubbing, no cyanosis, no edema. NEUROLOGIC: Alert, no changes from previous. Positive residual from CVA. LABORATORY DATA: White count 6.6, hemoglobin 9.7, hematocrit 28. Urinalysis negative. Sodium 140, potassium 3.6, chloride 100, BUN 34, creatinine 2.48. Her baseline creatinine is at 1.3 with a previous GFR of 40. ASSESSMENT AND PLAN: 1. At this time, I think the patient is volume depleted with no signs of obvious UTI or sepsis. Will start on IV fluids. Will hold diuretics. Reevaluate meds. 2. Status post CVA, no changes. 3. Decreased appetite. The patient might need calorie count if she remains with low intake, and she also might need a PEG tube. So for now, will encourage her to take more by p.o. 4. In short, IV fluids, hold TRINIDAD inhibitors, hold diuretics and rule out infection and calorie count if needed. Labs also in the morning. Job#: [id number] GH
[2018-09-24] MEDS ORDERED: FAMOTIDINE 20 MG/2 ML VIAL IV SCH (17:00)
[2018-09-24 19:20] VITALS: BP 130/62
[2018-09-24 20:00] VITALS: BP 130/62
[2018-09-24] MEDS: ATORVASTATIN 40 MG TAB PO SCH (20:48)
[2018-09-24] MEDS ORDERED: MAGNESIUM HYDROXIDE 30 ML UDC PO ONE ×2 (21:00→22:00)
[2018-09-24] MEDS ORDERED: NON-FORMULARY MEDICATION (Atorvastatin Calcium 80 MG) PO SCH (21:00)
[2018-09-24 21:11] LABS: FERRITIN 124.23 ng/mL (4.63-204.00)
[2018-09-24] MEDS ORDERED: NON-FORMULARY MEDICATION (Hydralazine Hcl 50 MG) PO SCH (22:00)
[2018-09-24] MEDS: HYDRALAZINE HCL 25 MG TAB PO SCH (22:09)
[2018-09-25] MEDS: HYDROMORPHONE 2MG/ML 2 MG/ML ML IV PRN ×2 (01:06→05:33)
[2018-09-25 01:30] VITALS: BP 129/61
[2018-09-25 01:54] LABS: FOLATE > 40.0 ng/mL (7.0-15.4)
[2018-09-25 05:20] VITALS: BP 159/65
[2018-09-25 05:31] LABS: ANION GAP 14.3 mmol/L (8-16); CALCIUM 7.7 mg/dL (8.4-10.2); CREATININE, SERUM 2.04 mg/dL (0.57-1.11); POTASSIUM 3.3 mmol/L (3.5-5.1)
[2018-09-25] MEDS: HYDRALAZINE HCL 25 MG TAB PO SCH ×3 (05:32→22:03)
[2018-09-25 06:04] LABS: FREE THYROXINE INDEX 2.2159 (1.4-3.8); THYROID STIMULATING HORMONE 4.072 uIU/mL (0.350-4.940)
[2018-09-25 06:07] LABS: BASOPHILS % 0.3 % (0.0-1.0); EOSINOPHILS % 0.5 % (0.0-6.0); HEMATOCRIT 23.7 % (34.2-44.1); LYMPHOCYTES # (AUTO) 0.7 (1.0-3.2); LYMPHOCYTES % 10.4 % (18.0-39.1); MEAN CORPUSCULAR HEMOGLOBIN 32.5 pg (28-32); MEAN CORPUSCULAR HGB CONC 33.8 g/dL (31-35); MEAN CORPUSCULAR VOLUME 96.3 fL (81-99); MONOCYTES # (AUTO) 0.6 (0.2-0.8); MONOCYTES % 9.3 % (4.4-11.3); NEUTROPHILS # (AUTO) 5.1 (2.1-6.9); NEUTROPHILS % 79.2 % (38.7-80.0); PLATELET COUNT 129 x10e3/uL (140-360); RED BLOOD COUNT 2.46 x10e6/uL (3.6-5.1); RED CELL DISTRIBUTION WIDTH 13.9 % (11.7-14.4)
[2018-09-25 08:03] VITALS: BP 124/58
[2018-09-25] MEDS: AMLODIPINE BESYLATE 5 MG TAB PO SCH (08:40)
[2018-09-25] MEDS: CLOPIDOGREL BISULFATE 75 MG TAB PO SCH (08:40)
[2018-09-25] MEDS: FLUOXETINE HCL 20 MG CAP PO SCH (08:40)
[2018-09-25] MEDS: FAMOTIDINE 20 MG TAB PO SCH (08:40)
[2018-09-25] MEDS: METOPROLOL SUCCINATE 50 MG TAB XL PO SCH (08:40)
[2018-09-25] MEDS: FAMOTIDINE 20 MG/2 ML VIAL IV SCH ×2 (08:40→17:03)
[2018-09-25] MEDS: MEMANTINE 10 MG TAB PO SCH (08:40)
[2018-09-25] MEDS ORDERED: POTASSIUM CHLORIDE 10MEQ EA PO ONE (12:00)
[2018-09-25 12:04] VITALS: BP 185/77
[2018-09-25 16:25] VITALS: BP 138/65
[2018-09-25 20:00] VITALS: BP 165/72
[2018-09-25] MEDS: ATORVASTATIN 40 MG TAB PO SCH (22:03)
[2018-09-26] VITALS (7 sets, daily range): BP systolic 136–163; BP diastolic 63–72
[2018-09-26] MEDS: HYDROMORPHONE 2MG/ML 2 MG/ML ML IV PRN (00:29)
[2018-09-26] MEDS ORDERED: MAGNESIUM HYDROXIDE 30 ML UDC PO STA (04:04)
[2018-09-26] MEDS ORDERED: BISACODYL 5 MG TAB EC PO ONE (04:15)
[2018-09-26 05:23] LABS: BASOPHILS % 0.3 % (0.0-1.0); EOSINOPHILS # (AUTO) 0.1 (0.0-0.4); EOSINOPHILS % 1.8 % (0.0-6.0); HEMATOCRIT 24.3 % (34.2-44.1); HEMOGLOBIN 8.3 g/dL (12.0-16.0); LYMPHOCYTES # (AUTO) 1.6 (1.0-3.2); LYMPHOCYTES % 26.6 % (18.0-39.1); MEAN CORPUSCULAR HEMOGLOBIN 33.1 pg (28-32); MEAN CORPUSCULAR HGB CONC 34.2 g/dL (31-35); MEAN CORPUSCULAR VOLUME 96.8 fL (81-99); MONOCYTES # (AUTO) 0.5 (0.2-0.8); MONOCYTES % 8.2 % (4.4-11.3); NEUTROPHILS # (AUTO) 3.8 (2.1-6.9); NEUTROPHILS % 62.9 % (38.7-80.0); PLATELET COUNT 136 x10e3/uL (140-360); RED BLOOD COUNT 2.51 x10e6/uL (3.6-5.1); RED CELL DISTRIBUTION WIDTH 14.3 % (11.7-14.4)
[2018-09-26 05:41] LABS: ALBUMIN 2.6 g/dL (3.5-5.0); ANION GAP 11.5 mmol/L (8-16); CALCIUM 8.2 mg/dL (8.4-10.2); CREATININE, SERUM 2.04 mg/dL (0.57-1.11); POTASSIUM 3.5 mmol/L (3.5-5.1)
[2018-09-26] MEDS: HYDRALAZINE HCL 25 MG TAB PO SCH ×3 (06:11→22:00)
[2018-09-26] MEDS: AMLODIPINE BESYLATE 5 MG TAB PO SCH (08:51)
[2018-09-26] MEDS: MEMANTINE 10 MG TAB PO SCH (08:51)
[2018-09-26] MEDS: FLUOXETINE HCL 20 MG CAP PO SCH (08:51)
[2018-09-26] MEDS: METOPROLOL SUCCINATE 50 MG TAB XL PO SCH (08:51)
[2018-09-26] MEDS: FAMOTIDINE 20 MG/2 ML VIAL IV SCH ×2 (08:51→17:10)
[2018-09-26] MEDS: CLOPIDOGREL BISULFATE 75 MG TAB PO SCH (08:51)
[2018-09-26] MEDS: FAMOTIDINE 20 MG TAB PO SCH (08:51)
[2018-09-26] MEDS: SODIUM CHLORIDE 0.9% 1000ML 1,000 ML IV SCH (12:00)
[2018-09-26 13:59] LABS: AMPHETAMINES SCREEN,URINE NEGATIVE (NEGATIVE); BENZODIAZEPINES SCREEN,URINE NEGATIVE (NEGATIVE); PHENCYCLIDINE SCREEN,URINE NEGATIVE (NEGATIVE)
--- NOTE | 2018-09-26 15:55 | Consultation ---
DATE OF CONSULTATION: September 26, 2018 NEUROLOGY CONSULT NOTE HISTORY OF PRESENT ILLNESS: Ms. Knapp is a 73-year-old right-hand dominant woman with past medical history significant for hypertension, hyperlipidemia, diabetes mellitus type 2, and multiple prior strokes, admitted to [facility] on September 24, 2018 with abdominal pain and constipation. As stated above, Ms. Knapp was admitted to [facility] under observation status on September 24, 2018 with a 1 to 2-day history of abdominal pain and constipation. While in the hospital, the patient became progressively more confused and experienced visual hallucinations. When asked for further details, the patient's daughter, who is at the bedside, reports Ms. Knapp is mumbling and rambling to no one in particular. Furthermore, her mumbling and rambling is nonsensical. The patient has told her daughter she sees spiders crawling on the goss as well as different people coming in and out of her room throughout the day and night. When asked if these individuals were hospital staff, the patient replies no, but she cannot say who is coming in to and out of her room. REVIEW OF SYSTEMS: Unable to assess secondary to the patient being encephalopathic. PAST MEDICAL HISTORY: Hypertension, hyperlipidemia, diabetes mellitus type 2, multiple prior strokes with the most recent being in July 2018. PAST SURGICAL HISTORY: Partial hysterectomy, removal of a growth on the thyroid gland, bilateral tubal ligation. PAST HOSPITALIZATIONS: Surgeries/procedures as listed, childbirth x3, prior hospitalization for poor appetite and decreased oral intake, stroke in May 2018, stroke in July 2018. FAMILY MEDICAL HISTORY: The patient's paternal and maternal grandparents are . Their medical histories are unknown. The patient's father is from a motor vehicle accident. Her mother is . Her medical history is unknown. Ms. Knapp had 3 siblings, 1 brother and 2 sisters. One sister is , this sister was murdered. The second sister and brother are alive and healthy. Ms. Knapp has 3 children, 2 daughters and 1 son, all of whom are alive and healthy. SOCIAL HISTORY: Ms. Knapp is . 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 The patient does not report current or prior tobacco, alcohol, or recreational drug use. HOME MEDICATIONS 1. Clopidogrel 75 mg by mouth daily. 2. Amlodipine 5 mg by mouth daily. 3. Lasix 10 mg by mouth daily. 4. Hydralazine 50 mg by mouth every 8 hours. 5. Lisinopril 40 mg by mouth daily. 6. Metoprolol 50 mg by mouth daily. 7. Atorvastatin 80 mg by mouth at bedtime daily. 8. Glimepiride 2 mg by mouth daily. 9. Cetirizine 10 mg by mouth at bedtime daily. 10. Pepcid 10 mg by mouth daily. 11. Fluoxetine 20 mg by mouth daily. 12. Magnesium 400 mg by mouth 3 times daily with meals. 13. Memantine 10 mg by mouth daily. 14. Methylphenidate 5 mg by mouth daily. 15. Minocycline 100 mg by mouth twice daily. ALLERGIES: TRAMADOL, MORPHINE, METFORMIN. NO KNOWN FOOD ALLERGIES. NO KNOWN ALLERGIES TO LATEX. NO KNOWN ALLERGIES TO IODINE OR OTHER CONTRAST MATERIALS. PHYSICAL EXAMINATION VITAL SIGNS: Height 60 inches, weight 131.31 pounds, BMI 25.6 kg/m2. Blood pressure 137/63 mmHg, pulse 69 beats per minute, respiratory rate 18 breaths per minute, oxygen saturation 98% on room air. GENERAL: The patient is awake and alert. Does not appear distressed. HEENT: Normocephalic, atraumatic. Pupils are equal, round, and reactive to light. Moist mucous membranes. NECK: Supple. No appreciable thyromegaly. No appreciable carotid bruits. CARDIOVASCULAR: S1, S2, regular rate and rhythm. No murmurs, rubs, or gallops. RESPIRATORY: Clear to auscultation bilaterally. No wheezes, rhonchi, or rales. EXTREMITIES: The skin is warm and dry. No clubbing, cyanosis, or edema. The posterior tibial and dorsalis pedis pulses are 1+ and symmetric. SKIN: No rashes or lesions. NEUROLOGIC: Memory/Attention: The patient is awake and alert. Oriented to person, place (hospital, state), time (days of week, month, year), and minimally to situation. Cranial Nerves: Cranial nerve I - not tested. Cranial nerve II, III, IV, and - pupils are equal and round, react briskly to light (from 4 mm to 2 mm). Extraocular movements intact. No nystagmus. Cranial nerve V - sensation to light touch is diminished over the left V1 through V3 distributions. Strength of the temporalis and masseter muscles is within normal limits. Cranial nerve VII - the face is asymmetric on the left as are all facial movements. There is moderate left central facial weakness. Cranial nerve VIII - hearing is diminished to finger rub bilaterally. Cranial nerve IX, X - soft palate elevates equally and symmetrically. Cranial nerve XI - normal strength of the bilateral sternocleidomastoid and trapezius muscles. Cranial nerve XII - the tongue protrudes midline and moves symmetrically from side to side. Strength: Bulk is diminished. The patient is able to maintain both arms against gravity for more than 10 seconds each without drift. She is able to maintain both legs against gravity for more than 5 seconds each without drift. Strength is grossly 4/5 in the left arm and left leg. Tone is increased in the left arm and left leg. DTRs: Deep tendon reflexes are 3+ at the left triceps, biceps, and brachioradialis. Deep tendon reflexes are 2+ at the right triceps, biceps, and brachioradialis. Deep tendon reflexes are 2+ at the left patella. Deep tendon reflexes are 1+ at the right patella. Deep tendon reflexes are absent and symmetric at the Achilles. Plantar responses are flexor bilaterally. Sensation: Sensation is decreased to light touch over the left arm and left leg. Cerebellar: Unable to assess secondary to the patient being encephalopathic. Gait: Deferred. Speech: Spontaneous speech is moderately dysarthric without aphasia. Repetition is intact. Involuntary Movements: None. Pronator Drift: As per motor exam. LABORATORY DATA: The most recent comprehensive metabolic panel is significant for an elevated chloride of 113, an elevated BUN of 28, an elevated creatinine of 2.04, a diminished estimated GFR of 24, an elevated serum glucose of 156, slightly decreased calcium of 8.2, total protein of 5.2, and an albumin of 2.6. A previous lactic acid level was 14.6. Iron 53, TIBC 251, percent saturation 21, transferrin 179, ferritin 124.23. Creatine kinase is 69, CK-MB 2.00, troponin-I 0.032, b-natriuretic peptide 121.6. Vitamin B12 of 928, folate greater than 40.0. TSH 4.072, free T4 index 2.2159, thyroxine (T4) 5.72, T3 uptake 38.74. The most recent CBC with differential and platelets reveals a white blood cell count of 5.98 with a normal differential. The hemoglobin and hematocrit are 8.3 and 24.3, respectively. The platelet count is 136. A urinalysis collected on September 24, 2018 revealed trace ketones, 6 to 10 red blood cells, and few urine yeast. C. difficile toxin A and B negative. DIAGNOSTIC STUDIES: Chest x-ray, 09/24/2018: No acute thoracic abnormality. CT of the abdomen/pelvis, 09/24/2018: 1. Moderate volume within the rectum. No bowel obstruction. 2. No acute abdominal or pelvic abnormality. ASSESSMENT AND PLAN: Ms. Knapp is a 73-year-old right-hand dominant woman with an extensive past medical history as detailed above, admitted to [facility] on September 24, 2018 with abdominal pain and constipation. Over the past 2 days, the patient has become increasingly more confused and has experienced visual hallucinations. Ms. Knapp's neurological examination is significant for [id number] encephalopathy, dysarthria, left hemiparesis, and left hyperreflexia as described above. The patient's laboratory data and other diagnostic studies have been reviewed. In my opinion, Ms. Knapp likely has a metabolic encephalopathy which is multifactorial. At baseline, the patient has cognitive impairment. Upon her admission to [facility], the patient is found to be dehydrated with [id number] renal failure. In addition to these factors, the patient is outside of her normal environment and routine, which puts her at a high risk for delirium. RECOMMENDATIONS 1. Additional blood and urine studies will be ordered to evaluate for other possible causes of metabolic encephalopathy. These will include: A vitamin B1 level, an ammonia level, a rapid plasma reagin, urine and blood cultures, a urine drug screen. 2. An MRI of the brain without contrast will be ordered to evaluate for other cerebrovascular event cysts. 3. Treatment with sedative/hypnotic and pain medications should be limited as these will alter the patient's sensorium. To that end, treatment with Dilaudid will be discontinued. 4. Employ environmental cues to combat delirium. 5. Defer treatment of the remaining medical comorbidities to the primary and other services following the patient. Thank you for this consultation. I will continue to follow the patient while she remains in the hospital. TIME SPENT: 70 minutes. Job#: [id number] [facility] NAMED [facility]
[2018-09-26] MEDS: ATORVASTATIN 40 MG TAB PO SCH (22:00)
[2018-09-27] VITALS (8 sets, daily range): BP systolic 136–158; BP diastolic 62–75
[2018-09-27] MEDS: SODIUM CHLORIDE 0.9% 1000ML 1,000 ML IV SCH (02:22)
[2018-09-27 05:41] LABS: ANION GAP 13.3 mmol/L (8-16); CALCIUM 7.8 mg/dL (8.4-10.2); CREATININE, SERUM 1.42 mg/dL (0.57-1.11); POTASSIUM 3.3 mmol/L (3.5-5.1)
[2018-09-27] MEDS: HYDRALAZINE HCL 25 MG TAB PO SCH ×3 (06:00→21:22)
[2018-09-27] MEDS: FAMOTIDINE 20 MG/2 ML VIAL IV SCH (08:41)
[2018-09-27] MEDS: FAMOTIDINE 20 MG TAB PO SCH (08:41)
[2018-09-27] MEDS: FLUOXETINE HCL 20 MG CAP PO SCH (08:41)
[2018-09-27] MEDS: CLOPIDOGREL BISULFATE 75 MG TAB PO SCH (08:41)
[2018-09-27] MEDS: METOPROLOL SUCCINATE 50 MG TAB XL PO SCH (08:41)
[2018-09-27] MEDS: MEMANTINE 10 MG TAB PO SCH (08:41)
[2018-09-27] MEDS: AMLODIPINE BESYLATE 5 MG TAB PO SCH (08:41)
--- NOTE | 2018-09-27 11:33 | Diagnostic Imaging Report ---
ADDENDUM #1 Axial diffusion-weighted imaging was also performed. Signed by: Dr. Maikol Bhakta M.D. on 09/27/2018 12:20 PM ORIGINAL REPORT MRI BRAIN WO HISTORY: Left-sided weakness COMPARISON: Head CT 07/26/2018, MRI of the brain 07/26/2018 and 08/03/2018 TECHNIQUE: Sagittal T2, axial T2, axial T1, axial T2/FLAIR, axial gradient echo, axial SWI, coronal T2/FLAIR MR images of the brain were obtained without contrast. Motion artifacts obscure some details. DISCUSSION: Scalp/bone marrow: Unremarkable. Brain sulci: Mildly prominent. Ventricles: Mild compensatory dilatation. Extra-axial spaces: No masses or fluid collections. Parenchyma: Mild focal diffusion restriction in the left brachium pontis/left lateral pj (slightly bright on DWI, predominantly isointense on ADC) is less prominent. Corresponding T2/FLAIR hyperintensity and mass effect in this region have decreased. Old small left posterior cerebellar cortical infarct is unchanged. Associated T2/FLAIR hyperintensity in the right brachium pontis/right lateral pj has not significantly changed. There is a small central area of T2/FLAIR hypointensity within this lesion. This may be an area of gliosis/encephalomalacia. There are questionable small foci of diffusion restriction (bright on DWI, predominantly isointense on ADC) in the left superior frontal gyrus subcortical white matter and left posterior subinsular region. No other diffusion restricting abnormalities are seen. No suspicious areas of focal magnetic susceptibility are seen on GRE images. Scattered T2/FLAIR hyperintense foci throughout the supratentorial white matter and central pj are likely chronic microvascular ischemic changes. Vessels: Normal flow voids in major arteries and veins. Sellar/Suprasellar region: No abnormalities. Craniocervical junction: No abnormalities. Incidental findings: T2 hyperintense left mastoid effusion is present. IMPRESSION: 1. Slightly decreased focal cytotoxic edema in the left brachium pontis/left lateral pj may be due to evolving subacute to chronic infarct, resolving demyelinating process, or resolving rhomboencephalitis. 2. Unchanged, associated focal T2/FLAIR hyperintensity in the right brachium pontis/right lateral pj may be due to vasogenic edema and/or gliosis/encephalomalacia. 3. Questionable small foci of subacute ischemia in the left superior frontal gyrus subcortical white matter and left posterior subinsular region. 4. Mild generalized cerebral volume loss. Mild supratentorial and pontine chronic microvascular ischemic change. 5. Old small left posterior cerebellar cortical infarct. Signed by: Dr. Maikol Bhakta M.D. on 09/27/2018 11:30 AM
[2018-09-27] MEDS ORDERED: POTASSIUM CHLORIDE 10MEQ EA PO SCH ×2 (13:00→13:21)
[2018-09-27] MEDS ORDERED: FUROSEMIDE INJ 10 MG/ML 4 ML VIAL IV SCH (13:00)
--- NOTE | 2018-09-27 17:29 | Progress Note ---
DATE: INTERNAL MEDICINE PROGRESS NOTE SUBJECTIVE: Patient originally was admitted with constipation. She was found to have acute renal insufficiency. She was found to have constipation, and the constipation was treated. She was given IV fluids because she was having acute on chronic renal insufficiency. She is doing better ru now. Potassium is low. Potassium is going to be replaced. We have to stop the IV fluids because of the swelling of both hands was getting kind of worse. PHYSICAL EXAM: VITAL SIGNS: Blood pressure 136/62. Temperature 97.1. Heart rate 72 per minute. Respiratory rate 14 per minute. Oxygen saturation 99%. HEART: Shows regular rhythm. Normal S1 and S2 sounds. LUNGS: Clear bilaterally. ABDOMEN: Soft. EXTREMITIES: Show mild swelling of the left arm. On the BMP: Sodium 144, potassium 3.3, chloride 112, CO2 22, BUN 22, creatinine 1.42, glucose 129. On the CBC: White blood count 5.98, hemoglobin 8.3, hematocrit 24.3, platelet count 136,000. AST 15, ALT 13, total bilirubin 0.6, alkaline phosphatase 73. FINAL IMPRESSION: 1. Acute on chronic renal failure stage 3. 2. Constipation. 3. Status post cerebellar cerebrovascular accident. 4. Hypertension. 5. Anemia of chronic disease. 6. Hypotension. 7. Hypertension with chronic renal insufficiency. PLAN OF TREATMENT: We have stopped the IV fluids because of swelling on the left arm. We are going to give Lasix 40 mg IV, potassium 40 mEq daily for 1 or 2 days, midodrine 12.5 mg q.6 hours as needed. Lactose 20 grams twice a day as needed for constipation. Dulcolax 10 mg daily. Namenda 10 mg daily. Lipitor 80 mg daily. Potassium chloride 40 mEq daily. Amlodipine 5 mg daily. Metoprolol 50 mg daily. Zofran 8 mg IV q.4 hours as needed for vomiting. Plavix 75 mg daily. Pepcid 40 mg twice a day. Paxil 20 mg daily. Hydralazine 50 mg q.8 hours. Furosemide 40 mg IV daily for at least a couple of days. Patient is going to benefit from an inpatient rehab. We are going to get an evaluation for [facility] at the request of the patient. Job#: [id number] EV
[2018-09-27] MEDS: ATORVASTATIN 40 MG TAB PO SCH (21:22)
[2018-09-28] VITALS (8 sets, daily range): BP systolic 138–165; BP diastolic 62–73
[2018-09-28] MEDS: HYDRALAZINE HCL 25 MG TAB PO SCH ×3 (05:35→20:38)
[2018-09-28 05:38] LABS: ANION GAP 9.7 mmol/L (8-16); CALCIUM 7.9 mg/dL (8.4-10.2); CREATININE, SERUM 1.13 mg/dL (0.57-1.11); POTASSIUM 3.7 mmol/L (3.5-5.1)
[2018-09-28] MEDS ORDERED: POTASSIUM CHLORIDE 10MEQ EA PO SCH (09:00)
[2018-09-28] MEDS: FLUOXETINE HCL 20 MG CAP PO SCH (09:30)
[2018-09-28] MEDS: MEMANTINE 10 MG TAB PO SCH (09:30)
[2018-09-28] MEDS: METOPROLOL SUCCINATE 50 MG TAB XL PO SCH (09:30)
[2018-09-28] MEDS: FAMOTIDINE 20 MG TAB PO SCH (09:30)
[2018-09-28] MEDS: CLOPIDOGREL BISULFATE 75 MG TAB PO SCH (09:30)
[2018-09-28] MEDS: AMLODIPINE BESYLATE 5 MG TAB PO SCH (09:30)
--- NOTE | 2018-09-28 15:29 | Discharge Summary ---
HISTORY OF PRESENT ILLNESS: Patient is as 73-year-old female with past medical history positive for cerebellar CVA, hypertension, chronic renal failure, gastroesophageal reflux disease. She came here with constipation. She was found also to have acute renal failure. IV fluids were given. BUN and creatinine are back to baseline. Patient was seen by Dr. Fierro, neurology, who also saw the patient before. MRI of the brain showed a expected evolution changes from the prior cerebellar CVA. Blood culture and urine culture negative. Patient is going to go to [facility] for higher level of physical therapy. Since she is doing better right now, she can participate more than the last time she went there. PHYSICAL EXAM: VITAL SIGNS: Blood pressure 154/69, temperature 97.7, heart rate 65 per minute. Respiratory rate 16 per minute. Oxygen saturation 98%. HEART: Regular rhythm. No murmur. No extra sounds. LUNGS: Clear bilaterally. ABDOMEN: Soft. On the BMP sodium 141, potassium 3.7, chloride 111, CO2 24, BUN 15, creatinine 1.13, glucose 118. On the CBC, white blood count 5.98, hemoglobin 8.3, hematocrit 34.3, platelet 136,000. AST 15, ALT 13, total bilirubin 0.6, . FINAL IMPRESSION: 1. Episode of chronic renal failure which is resolved. 2. Constipation which is resolved. 3. Status post cerebellar CVA with left-sided hemiparesis. 4. Hypertension with chronic renal failure. 5. Gastroesophageal reflux disease. PLAN OF TREATMENT: Continue with Namenda 10 mg daily. Lipitor 80 mg daily. Bisacodyl 10 mg daily. Lactulose 20 grams twice a day. Amlodipine 5 mg daily. Metoprolol 50 mg daily. Zofran 8 mg q.4 hours as needed. Plavix 75 mg daily. Pepcid 10 mg daily. Fluoxetine 20 mg daily. Hydralazine 50 mg q.8 hours. The patient is going to go to [facility] tomorrow. JOSE GRACE MD Job#: [id number]
[2018-09-28] MEDS: ATORVASTATIN 40 MG TAB PO SCH (20:38)
[2018-09-29] VITALS (7 sets, daily range): BP systolic 137–188; BP diastolic 64–80
[2018-09-29] MEDS: HYDRALAZINE HCL 25 MG TAB PO SCH (05:14)
[2018-09-29] MEDS ORDERED: AMLODIPINE BESYLATE 5 MG TAB PO SCH (09:00)
[2018-09-29] MEDS: FLUOXETINE HCL 20 MG CAP PO SCH (09:30)
[2018-09-29] MEDS: CLOPIDOGREL BISULFATE 75 MG TAB PO SCH (09:30)
[2018-09-29] MEDS: MEMANTINE 10 MG TAB PO SCH (09:30)
[2018-09-29] MEDS: FAMOTIDINE 20 MG TAB PO SCH (09:30)
[2018-09-29] MEDS: METOPROLOL SUCCINATE 50 MG TAB XL PO SCH (09:31)
[2018-09-29] MEDS ORDERED: HYDRALAZINE HCL 25 MG TAB PO SCH (14:00)
[2018-09-30] MEDS ORDERED: AMLODIPINE BESYLATE 10 MG TAB PO SCH (09:00)
== END 2018-09-29 17:11 ==
LOC: ER 07:23 → ERHOLD 11:32 → IMCU 14:40
PROVIDERS: ADMIT Internal Medicine; ATTEND Internal Medicine
DX: K56.41 Fecal impaction (principal); N17.9 Acute kidney failure, unspecified; E86.0 Dehydration; R10.84 Generalized abdominal pain; E11.22 Type 2 diabetes mellitus with diabetic chronic kidney disease; I12.9 Hypertensive chronic kidney disease with stage 1 through stage 4 chronic kidney disease, or unspecified chronic kidney disease; I69.354 Hemiplegia and hemiparesis following cerebral infarction affecting left non-dominant side; Z74.01 Bed confinement status; Z88.5 Allergy status to narcotic agent; Z88.8 Allergy status to other drugs, medicaments and biological substances; N18.3 Chronic kidney disease, stage 3 (moderate); E78.5 Hyperlipidemia, unspecified; K21.9 Gastro-esophageal reflux disease without esophagitis; G93.41 Metabolic encephalopathy; R44.1 Visual hallucinations; I69.319 Unspecified symptoms and signs involving cognitive functions following cerebral infarction; I69.398 Other sequelae of cerebral infarction; D63.8 Anemia in other chronic diseases classified elsewhere; I95.9 Hypotension, unspecified; M79.89 Other specified soft tissue disorders; I69.322 Dysarthria following cerebral infarction; E87.6 Hypokalemia; R41.0 Disorientation, unspecified
CPT/HCPCS: 36415 ×5; 51700; 70551; 71045; 74176; 80048 ×3; 80053 ×2; 80307; 81001; 82140; 82150; 82550; 82553; 82607; 82728; 82746; 83540; 83605; 83690; 83735 ×2; 83880; 84425; 84436; 84443; 84466; 84479; 84484; 85025 ×3; 85045; 86592; 87040; 87086; 87493; 93005; 96361; 96374; 96375; 96376 ×2; 97116 ×2; 97139 ×3; 97162; 97530 ×2; 99285; G0378 ×6; G8978; G8979; J1170 ×3; J1940; J2405 ×2; J7030 ×3; Q9663

== ENCOUNTER 2018-11-07 10:30 | Inpatient (IN) | payer MEDICARE, OTHER ==
[~2018-11-07] VITALS: Ht 154.9 cm; Wt 48.7 kg
[2018-11-07] VITALS (8 sets, daily range): BP systolic 150–189; BP diastolic 63–76
[~2018-11-07 10:30] MED LIST changes: +AMLODIPINE BESYL5 MG PO; +ATORVASTATIN CA80 MG PO; +CLOPIDOGREL75 MG PO; +FAMOTIDINE20 MG PO; +FLUOXETINE HCL20 MG PO; +FUROSEMIDE20 MG PO; +HYDRALAZINE HCL50 MG PO; +LISINOPRIL40 MG PO; +MAGOX 400400 MG PO; +METHYLPHENIDATE5 MG PO; +METOPROLOL SUCC50 MG PO; +MINOCYCLINE HC100 MG PO; +NAMENDA10 MG PO
[2018-11-07] MEDS ORDERED: SODIUM CHLORIDE 0.9% 1000ML 1,000 ML IV STA (11:01)
[2018-11-07 11:41] LABS: BASOPHILS % 0.1 % (0.0-1.0); HEMATOCRIT 35.8 % (34.2-44.1); HEMOGLOBIN 12.2 g/dL (12.0-16.0); LYMPHOCYTES # (AUTO) 0.8 (1.0-3.2); MEAN CORPUSCULAR HEMOGLOBIN 30.7 pg (28-32); MEAN CORPUSCULAR HGB CONC 34.1 g/dL (31-35); MEAN CORPUSCULAR VOLUME 90.2 fL (81-99); MONOCYTES # (AUTO) 0.3 (0.2-0.8); MONOCYTES % 3.1 % (4.4-11.3); NEUTROPHILS # (AUTO) 8.9 (2.1-6.9); NEUTROPHILS % 88.3 % (38.7-80.0); PLATELET COUNT 247 x10e3/uL (140-360); RED BLOOD COUNT 3.97 x10e6/uL (3.6-5.1); RED CELL DISTRIBUTION WIDTH 14.5 % (11.7-14.4)
[2018-11-07 11:46] LABS: INR 0.85; PROTHROMBIN TIME 12.4 seconds (11.9-14.5)
[2018-11-07 11:47] LABS: CLARITY,URINE HAZY (CLEAR); COLOR,URINE YELLOW (YELLOW)
[2018-11-07 11:47] LABS: PARTIAL THROMBOPLASTIN TIME 17.6 seconds (23.8-35.5)
[2018-11-07 11:48] LABS: KETONES,URINE 3+ (NEGATIVE); LEUKOCYTE ESTERASE ,URINE NEGATIVE (NEGATIVE); NITRITE,URINE POSITIVE (NEGATIVE); PROTEIN,URINE DIPSTICK 3+ (NEGATIVE)
--- NOTE | 2018-11-07 11:48 | Diagnostic Imaging Report ---
EXAMINATION: CHEST SINGLE (PORTABLE) COMPARISON: None INDICATION: Nausea, vomiting ^ERMD ORDER ^[id number] ^1135 ^Y DISCUSSION: Frontal view of the chest obtained at 1129 hours. HEART AND MEDIASTINUM: The cardiomediastinal silhouette is unremarkable. LINES: None. LUNGS: The lungs are well inflated and clear. No pneumonia or pulmonary edema. PLEURA: No pleural effusion or pneumothorax. BONES AND SOFT TISSUES: No focal osseous lesion. Mild degenerative changes of the AC joints and thoracic spine. Surgical clips in the lower right neck are stable. IMPRESSION: No acute cardiopulmonary disease. Signed by: Dr. Yadira Moyer MD on 11/07/2018 11:45 AM
[2018-11-07 11:49] LABS: BILIRUBIN,URINE NEGATIVE (NEGATIVE); URINE UROBILINOGEN 0.2 mg/dL (0.2 - 1)
[2018-11-07 11:53] LABS: ALBUMIN 3.7 g/dL (3.5-5.0); ANION GAP 20.8 mmol/L (8-16); CALCIUM 9.8 mg/dL (8.4-10.2); CREATININE, SERUM 1.12 mg/dL (0.57-1.11); POTASSIUM 3.8 mmol/L (3.5-5.1)
[2018-11-07 12:00] LABS: CREATINE KINASE MB 0.9 ng/mL (0-5.0)
[2018-11-07 12:01] LABS: AMORPHOUS SEDIMENT,URINE FEW (FEW); BACTERIA,URINE MANY /HPF; RBC,URINE 0-5 /HPF (0-5)
[2018-11-07] MEDS ORDERED: SODIUM CHLORIDE 0.9% 1000ML 1,000 ML IV ONE (12:30)
[2018-11-07] MEDS ORDERED: DIAZEPAM5 MG PO (12:36)
[2018-11-07] MEDS ORDERED: ROPINIROLE HC0.25 MG PO (12:36)
[2018-11-07] MEDS: PIPER-TAZ 3.375 GM 50 ML IV SCH ×2 (12:55→18:37)
--- NOTE | 2018-11-07 14:30 | Diagnostic Imaging Report ---
CT Abdomen And Pelvis with Intravenous Contrast INDICATION: Weakness, vomiting ^abd pain TECHNIQUE: Thin collimation axial images obtained from the diaphragm to the level of the pubic symphysis following the uneventful administration of 100 cc of low osmolar, nonionic intravenous contrast. Dose reduction techniques used: Automated exposure control, adjustment of the mAs and/or kVp according to patient size, standardized low-dose protocol, and/or iterative reconstruction technique. RADIATION DOSE: Total DLP: 189.8 mGy*cm Estimated effective dose: (DLP x 0.015 x size factor) mSv CTDIvol has been reviewed. It is below the limits set by the Radiation Protocol Committee (RPC). COMPARISON: CT 09/24/2018. ABDOMEN FINDINGS: Lung Bases: Minimal left basilar atelectasis. Small pericardial effusion. Small hiatal hernia Liver: Decreased attenuation suggestive of steatosis. No evidence for mass. Gallbladder: Present and appears normal. No biliary ductal dilatation. Pancreas: Diffuse fatty atrophy. No mass or ductal dilatation. Spleen: Normal in size. No evidence of mass.. Adrenal Glands: Stable thickening. No mass. Kidneys: Right: Normal enhancement. No soft tissue mass. No hydronephrosis. Left: Normal enhancement. No soft tissue mass. No hydronephrosis. Lymph Nodes: No enlarged abdominal or retroperitoneal lymph nodes.. Aorta: Normal in diameter and diffusely calcified PELVIS FINDINGS: Bowel: Stomach: Collapsed but normal in appearance. Small Bowel: Normal in caliber with normal wall thickness. Periampullary duodenal diverticulum is stable. Large Bowel: Large stool ball in the rectum. No significant rectal wall thickening. Mild perirectal inflammation. Moderate burden of stool throughout the colon. A few scattered diverticula are present without associated inflammation. Appendix: Not visualized and may be absent or collapsed. Bladder: Normal. The uterus is absent. There are no adnexal masses. No loculated fluid collection. No free air. Bones: The bones are diffusely demineralized. Degenerative changes of the lumbar spine are stable. No focal osseous lesions. IMPRESSION: 1. Fecal impaction. No CT evidence of stercoral proctitis. Moderate amount of stool throughout the large bowel consistent with constipation. No bowel obstruction. 2. Steatosis. 3. Hiatal hernia. Stable periampullary duodenal diverticulum. 4. Stable bilateral adrenal hyperplasia. Signed by: Dr. Yadira Moyer MD on 11/07/2018 2:27 PM
[2018-11-07] MEDS: SODIUM CHLORIDE 0.9% 1000ML 1,000 ML IV SCH (14:44)
[2018-11-07 17:32] LABS: CREATINE KINASE MB 0.7 ng/mL (0-5.0)
[2018-11-07] MEDS ORDERED: POTASSIUM CHLORIDE 20MEQ/100ML 100 ML IV ONE (18:15)
--- NOTE | 2018-11-07 18:19 | Consultation ---
DATE OF CONSULTATION: November 07, 2018 CARDIOLOGY CONSULTATION REQUESTING PHYSICIAN: Dr. Melendez. REASON FOR CONSULTATION: Nonsustained ventricular tachycardia. HISTORY OF PRESENT ILLNESS: This is a 73-year-old woman with history of hypertension, hyperlipidemia, diabetes mellitus, questionable history of congestive heart failure, and CVA x3 who presents with complaints of nausea and vomiting. Patient's daughter who is at bedside indicates patient began to have abdominal pain as well as nausea and vomiting yesterday. Due to this and poor appetite, she was brought to the ER for further evaluation. While in the ER, she was noted to have episodes of nonsustained ventricular tachycardia as well as PVCs on telemetry. Cardiology is consulted for further evaluation. Patient denies any chest pain, shortness of breath, palpitations, edema, orthopnea, PND, or lightheadedness. REVIEW OF SYSTEMS: Negative except as per HPI. PAST MEDICAL HISTORY 1. Hypertension. 2. hyperlipidemia. 3. Diabetes mellitus. 4. History of congestive heart failure. 5. CVA x3. PAST SURGICAL HISTORY 1. Hysterectomy. 2. Thyroid surgery. ALLERGIES: PLEASE SEE EMR MEDICATIONS: Please see medical list. SOCIAL HISTORY: Denies tobacco, alcohol, or illicit drugs. FAMILY HISTORY: Denied. PHYSICAL EXAMINATION VITAL SIGNS: Temperature 97.8 degrees, pulse 91, respiratory rate 15, blood pressure 169/66, oxygen saturation 100% on 3 liters nasal cannula. GENERAL: Elderly woman, frail-appearing, no acute distress. HEENT: Normocephalic, atraumatic. NECK: Supple. No thyromegaly or cervical lymphadenopathy. No carotid bruits. LUNGS: Clear to auscultation bilaterally. No wheezes or crackles. CARDIOVASCULAR: Normal rate, regular rhythm. No murmur. Normal S1 and S2. ABDOMEN: Soft, nontender. EXTREMITIES: No edema. NEUROLOGIC: Left-sided weakness was noted as well as aphasia. LABS: WBC 10.04, hemoglobin 12.2, hematocrit 35.8, platelets 247. Sodium 136, potassium 3.8, chloride 99, CO2 of 20, BUN of 14, creatinine 1.12. Lactic acid 23.5. Troponin 0.015. UA; 3+ protein, 3+ glucose, 3+ ketones, 1+ blood, positive nitrites, 6 to 10 wbc's, many bacteria. Chest x-ray, no acute cardiopulmonary disease. CT abdomen and pelvis, fecal impaction. No CT evidence of stercoral proctitis, moderate amount of stool throughout the large bowel consistent with constipation, no bowel obstruction, steatosis, hiatal hernia, stable periampullary duodenal diverticulum, stable bilateral adrenal hyperplasia. EKG; normal sinus rhythm, ST and T wave abnormality, consider inferior ischemia. TELEMETRY: Normal sinus rhythm with PVCs and nonsustained ventricular tachycardia. IMPRESSION 1. Nonsustained ventricular tachycardia and frequent premature ventricular contractions. 2. Abdominal pain. 3. Nausea and vomiting. 4. Acute kidney injury versus chronic kidney disease. 5. Abnormal urinalysis suggestive of urinary tract infection. 6. Elevated lactate, now improved. 7. History of congestive heart failure. 8. Hypertension. 9. Hyperlipidemia. 10. Diabetes mellitus. 11. Cerebrovascular accident x3. RECOMMENDATIONS: Review of hospital records indicate patient had echocardiogram July of 2018 with normal LV size and mild concentric LVH. Estimated LVEF was 55% to 60% with impaired relaxation. No significant valvular abnormalities were present, although trivial pericardial effusion was noted. We will repeat echocardiogram, replete electrolytes, monitor patient on telemetry. As patient currently denies cardiac symptoms, no further cardiac evaluation is indicated at this time. Management of patient's nausea and vomiting per primary service. Thank you for this consult. We will continue to follow. Job#: [id number] [facility]
[2018-11-07] MEDS: VANCOMYCIN 250MG/5ML ORAL SOLN PO SCH ×2 (19:30→20:03)
[2018-11-07] MEDS: LABETALOL HCL 5 MG/ML 20ML VIAL IV PRN (20:03)
[2018-11-07] MEDS: ONDANSETRON HCL INJ 2MG/ML 2ML 2 MG/ML VIAL IV PRN (20:51)
[2018-11-07] MEDS ORDERED: SOD PHOSPHATE/SOD BIPHOSPHATE ENEMA 132 ML BTL PR ONE (21:30)
--- NOTE | 2018-11-07 21:56 | NUR ---
GAVE PATIENT THE FLEET ENEMA. PATIENT PASSED 3-5LB STOOL THAT WAS FABRICE IN TEXTURE AND LIGHT BROWN COLOR.
[2018-11-07] MEDS ORDERED: SODIUM CHLORIDE 0.9% 50ML 50 ML ONE (22:21)
[2018-11-07] MEDS ORDERED: IOPAMIDOL 370 MG/ML 200 ML INFUS..BTL INJ ONE (22:21)
[2018-11-08] VITALS (37 sets, daily range): BP systolic 123–188; BP diastolic 49–89
[2018-11-08] MEDS: PIPER-TAZ 3.375 GM 50 ML IV SCH ×4 (00:23→17:53)
[2018-11-08 00:41] LABS: CREATINE KINASE MB 0.7 ng/mL (0-5.0)
[2018-11-08 04:54] LABS: BASOPHILS % 0.3 % (0.0-1.0); EOSINOPHILS % 0.3 % (0.0-6.0); HEMATOCRIT 25.3 % (34.2-44.1); HEMOGLOBIN 8.5 g/dL (12.0-16.0); LYMPHOCYTES # (AUTO) 1.8 (1.0-3.2); LYMPHOCYTES % 28.4 % (18.0-39.1); MEAN CORPUSCULAR HEMOGLOBIN 31.1 pg (28-32); MEAN CORPUSCULAR HGB CONC 33.6 g/dL (31-35); MEAN CORPUSCULAR VOLUME 92.7 fL (81-99); MONOCYTES # (AUTO) 0.6 (0.2-0.8); NEUTROPHILS # (AUTO) 3.9 (2.1-6.9); NEUTROPHILS % 60.5 % (38.7-80.0); PLATELET COUNT 158 x10e3/uL (140-360); RED BLOOD COUNT 2.73 x10e6/uL (3.6-5.1)
[2018-11-08] MEDS: SODIUM CHLORIDE 0.9% 1000ML 1,000 ML IV SCH ×3 (05:00→16:44)
[2018-11-08 05:24] LABS: CREATINE KINASE MB 0.6 ng/mL (0-5.0)
[2018-11-08 05:48] LABS: ALBUMIN 2.4 g/dL (3.5-5.0); ANION GAP 10.3 mmol/L (8-16); CALCIUM 7.8 mg/dL (8.4-10.2); CREATININE, SERUM 0.95 mg/dL (0.57-1.11); POTASSIUM 3.3 mmol/L (3.5-5.1)
[2018-11-08] MEDS: ENOXAPARIN SOD INJ 40 MG/0.4 ML SYR SC SCH (08:58)
[2018-11-08] MEDS ORDERED: SOD PHOSPHATE/SOD BIPHOSPHATE ENEMA 132 ML BTL PR ONE (09:00)
[2018-11-08] MEDS: LABETALOL HCL 5 MG/ML 20ML VIAL IV PRN ×2 (09:44→21:04)
--- NOTE | 2018-11-08 10:53 | NUR ---
MD Power paged to notify that pt requested change of attending MD, as he is her PCP. Awaiting response. Admissions notified that pt has change of PCP.
[2018-11-08] MEDS ORDERED: BISACODYL 10 MG SUPP PR PRN (11:00)
[2018-11-08] MEDS ORDERED: DEXTROSE 50% SYRINGE 50 ML IV PRN (11:00)
[2018-11-08] MEDS ORDERED: DOCUSATE SODIUM 100 MG CAP PO SCH (11:30)
[2018-11-08] MEDS: INSULIN LISPRO 100 UNIT/1 ML 3ML VIAL SQ SCH ×3 (12:24→21:12)
[2018-11-08] MEDS: ONDANSETRON HCL INJ 2MG/ML 2ML 2 MG/ML VIAL IV PRN ×3 (13:00→22:00)
[2018-11-08] MEDS ORDERED: POTASSIUM CHLORIDE 20 MEQ TAB CR PO ONE (13:30)
--- NOTE | 2018-11-08 16:02 | NUR ---
CASE MANAGEMENT INITIAL ASSESSMENT Rn Gastroenterology to bedside to discuss plan of care with patient/family. CM/SW role and care transitions discussed. Anticipated discharge plan discussed along with duration of care. CM/SW discussed patients right to make decisions in care. CM/SW work hours given. Patient lives:DAUGHTER ITZEL Admit/Transfer: ER POA/Emergency contact: DTR ITZEL RAI [phone] Current/Previous Home Health: NONE PCP/Follow-up Care: DR JOSE GRACE Current/Previous DME: WHEELCHAIR, SLIDING BOARD Other Services: OP PHYSICAL THERAPY AT [facility] Employment Status: RETIRED Areas of Concerns: DTR THINKS SHE WILL NEED PERMANENT PLACEMENT FOR PT; DOESN'T THINK SHE CAN GIVE THE PT THE CARE SHE NEEDS Referral Needs: SNF Education Needs: NONE IMM/OLIVO given and signed (if applicable): IMM ON ADMIT IN ER Goal for discharge:PT'S DAUGHTER'S GOAL IS TO HAVE PT SENT TO SNF THEN TRANSITION TO [facility] CM/SW left business card at the bedside with contact information. Name and number was also written on the patients whiteboard. Patient verbalized understanding of discussion. CM will follow-up with ongoing discharge and transition of care needs.
--- NOTE | 2018-11-08 17:00 | NUR ---
Nutrition Intervention Note RD Recommendation(s) for Physician: -Rec ADA diet as medically appropriate -Rec Glucerna (Chocolate) BID to promote PO intake The patient meets criteria for MODERATE protein-calorie malnutrition. Plan of Care: RD following, monitoring for tolerance and adequacy, TF rec Nutrition reason for involvement: RN Consult no reason stated, Nutrition Risk Trigger MST RD Assessment 11/08 Chart reviewed. Pt was discussed during rounds. 73yo F, who is admitted for abdominal pain, nausea and vomiting. CT abd/pel showed fecal impaction. RN Sea states constipation has resolved. Visited pt in the room. Daughter on bedside to provide hx. Per daughter, pt has had ~10lbs weight loss since 07/2018; UBW ~120lbs. Pt has not been eating much for months. For lunch today, pt had <25% meal intake. Pt was given meds for nausea today. No other GI complains noted. No chewing or swallowing difficulty noted. Pt doesnt like Ensure but willing to try Glucerna. Communicated RD rec to RN. Will continue to monitor and follow. Principal Problems/Diagnoses: 1. Nonsustained ventricular tachycardia and frequent premature ventricular contractions. 2. Abdominal pain. 3. Nausea and vomiting. 4. Acute kidney injury versus chronic kidney disease. 5. Abnormal urinalysis suggestive of urinary tract infection. 6. Elevated lactate, now improved. PMH: hypertension, hyperlipidemia, diabetes mellitus, questionable history of congestive heart failure, and CVA x3 GI: abdomen flat, soft, non-tender, and flatus present 11/08 Skin: no wound present per chart Labs: (11/08) K 3.3 L, Glucose 188 H, Ca 7.8 L Meds: Zofran, insulin, colace Ht: 61in Wt: 110lb BMI: 20.8kg/m2 IBW: 105lb Malnutrition Evaluation (11/08/2018) The patient meets criteria for MODERATE protein-calorie malnutrition. Energy intake: <75% of estimated energy requirements for >3 months Weight loss: >7.5% in 3 months (Chronic) Fat loss: Moderate somewhat hollow orbital region Muscle loss: Moderate temporal depression Supporting Evidence: Fluid accumulation: unable to evaluate Functional Status: no changes Nutrition Prescription (Diet Order): renal diabetic diet Diet Adequacy: Not meeting calorie needs, Not meeting protein needs Diet Education Needs Assessment: Diet education not indicated. Nutrition Care Level: mod Nutrition Diagnosis: Inadequate oral intake related to chronic illness as evidenced by poor appetite and 10lbs weight loss in 3 months. Goal: Patient will meet 75-100% of estimated needs by follow up Progress: N/A Interventions: Carbohydrate-modified diet, Commercial beverage Monitoring/Evaluation: Total energy intake, Total protein intake, Modified diet, Liquid supplement, Weight change Signed: Mamie Gutierres MS, RD, LD
[2018-11-08 17:22] LABS: BILIRUBIN,URINE NEGATIVE (NEGATIVE); CLARITY,URINE SL CLOUDY (CLEAR); COLOR,URINE YELLOW (YELLOW); KETONES,URINE NEGATIVE (NEGATIVE); LEUKOCYTE ESTERASE ,URINE TRACE (NEGATIVE); NITRITE,URINE NEGATIVE (NEGATIVE); PROTEIN,URINE DIPSTICK TRACE (NEGATIVE); URINE UROBILINOGEN 0.2 mg/dL (0.2 - 1)
[2018-11-08] MEDS ORDERED: FUROSEMIDE40 MG PO (17:22)
[2018-11-08] MEDS ORDERED: HYDROCORTISONE10 MG PO (17:22)
[2018-11-08] MEDS ORDERED: DIAZEPAM5 MG PO (17:25)
[2018-11-08] MEDS ORDERED: ROPINIROLE HC0.25 MG PO (17:25)
[2018-11-08 17:30] LABS: BACTERIA,URINE MANY /HPF; RBC,URINE 0-5 /HPF (0-5)
[2018-11-08] MEDS ORDERED: HYDRALAZINE HCL 25 MG TAB PO PRN (17:30)
[2018-11-08] MEDS ORDERED: DIAZEPAM 5 MG TAB PO PRN (17:30)
[2018-11-08] MEDS: FAMOTIDINE 20 MG TAB PO SCH (17:52)
[2018-11-08] MEDS: MEMANTINE 10 MG TAB PO SCH (17:52)
[2018-11-08] MEDS: METOPROLOL SUCCINATE 50 MG TAB XL PO SCH (17:53)
[2018-11-08] MEDS: CLOPIDOGREL BISULFATE 75 MG TAB PO SCH (17:53)
[2018-11-08] MEDS: LUBIPROSTONE 24 MCG CAP PO SCH (17:53)
--- NOTE | 2018-11-08 17:59 | Progress Note ---
DATE: November 08, 2018 INTERNAL MEDICINE PROGRESS NOTE SUBJECTIVE: Patient is feeling better than when she came. PHYSICAL EXAM: VITAL SIGNS: Blood pressure 145/66, temperature 98 degrees, heart rate 77 per minute, respiratory rate 18 per minute, oxygen saturation 100%. HEART: Shows regular rhythm. Normal S1 and S2 sounds. LUNGS: Clear bilaterally. ABDOMEN: Soft. EXTREMITIES: Show no evidence of cyanosis, edema or trauma. BLOOD WORK: We have a BMP: Sodium 142, potassium 3.3, chloride 112, CO2 23, BUN 10, creatinine 0.95, glucose 188. On the CBC: White blood count 6.37, hemoglobin 8.5, hematocrit 25.3, platelet count . PT 12.4, INR 0.85, PTT is 17.6. AST 8, ALT 12, total bilirubin 0.4, alkaline phosphatase 52. FINAL IMPRESSION: 1. Episode of nausea and vomiting which is slowly resolving. 1. Constipation with fecal impaction. 2. Status post supraventricular tachycardia. 3. Uncontrolled diabetes mellitus type 2. 4. Uncontrolled hypertension. 5. Possible urinary tract infection. 6. Hypokalemia. 7. Anemia of chronic disease. 8. Status post recurrent cerebellar cerebrovascular accidents with ataxia. 9. Depression. PLAN OF TREATMENT: We are going to resume the home medications. Continue Zosyn q.6 hours. Continue normal saline at 100 mL an hour. Continue monitoring blood sugar a.c. and nightly. Continue Zofran 4 mg IV q.4 hours as needed. Labetalol 10 mg IV q.6 hours as needed for hypertension. We are going to start her on Amitiza 24 mcg p.o. twice a day. Discontinue Colace. Continue Lovenox 40 mg subcutaneous daily for DVT prophylaxis. Resume the rest of the home medications, and we are going to order physical and occupational therapy also. We are going to recheck the BMP and the magnesium level also tomorrow. Continue diabetic diet as much as tolerated. Case discussed with the family at the bedside. The family is interested in a longterm facility once she leaves the hospital. Job#: [id number] EV
[2018-11-08] MEDS: HYDROCORTISONE 10 MG TAB PO SCH (19:11)
[2018-11-08 19:17] LABS: MAGNESIUM 1.5 MG/DL (1.3-2.1); POTASSIUM 3.5 mmol/L (3.5-5.1)
[2018-11-08] MEDS ORDERED: ATORVASTATIN 20 MG TAB PO SCH (21:00)
[2018-11-08] MEDS: ATORVASTATIN 40 MG TAB PO SCH (21:11)
[2018-11-08] MEDS: ROPINIROLE HCL 0.25 MG TAB PO SCH (21:11)
--- NOTE | 2018-11-08 23:21 | Progress Note ---
DATE: November 08, 2018 CARDIOLOGY PROGRESS NOTE SUBJECTIVE: Patient denies chest pain or shortness of breath. OBJECTIVE VITAL SIGNS: Temperature 99 degrees, pulse 73, respiratory rate 23, blood pressure 158/60, and oxygen saturation 100% on 2 L nasal cannula. GENERAL: Elderly woman, frail appearing, no acute distress. LUNGS: Clear to auscultation bilaterally. No wheezes or crackles. CARDIOVASCULAR: Normal rate, regular rhythm. No murmur. Normal S1 and S2. ABDOMEN: Soft, nontender. EXTREMITIES: No edema. NEUROLOGIC: Left-sided weakness as well as aphasia is noted. CARDIAC MEDICATIONS 1. Atorvastatin 80 mg p.o. nightly. 2. Hydralazine 50 mg p.o. q.8 h. p.r.n. 3. Plavix 75 mg p.o. daily. 4. Metoprolol 50 mg p.o. daily. 5. Amlodipine 10 mg p.o. daily. LABS: WBC 6.37, hemoglobin 8.5, hematocrit 25.3, and platelets 158,000. Sodium 142, potassium 3.2, CO2 of 23, BUN 10, and creatinine 0.95. Troponin 0.019. TELEMETRY: Normal sinus rhythm. IMPRESSIONS 1. Nonsustained ventricular tachycardia and frequent premature ventricular contractions. 2. Abdominal pain. 3. Nausea and vomiting. 4. Acute kidney injury, improved. 5. Abnormal urinalysis suggestive of urinary tract infection. 6. Elevated lactate, now improved. 7. History of congestive heart failure. 8. Hypertension. 9. Hyperlipidemia. 10. Diabetes mellitus. 11. Cerebrovascular accident x3. RECOMMENDATIONS: Review of the hospital records indicate patient had an echocardiogram in July 2018 with normal LV size and mild concentric LVH. Estimated LVEF was 55% to 60% with impaired relaxation. No significant valvular abnormalities were present; however, there was a small pericardial effusion which is still noted on echocardiogram this admission. Replete electrolytes. Monitor patient on telemetry. As patient is currently asymptomatic, no further cardiac evaluation is indicated at this time. Management of patient's nausea and vomiting per primary service. Thank you for this consult. We will continue to follow. Job#: [id number] CF MTDD
[2018-11-09] VITALS (31 sets, daily range): BP systolic 119–191; BP diastolic 49–108
[2018-11-09] MEDS: PIPER-TAZ 3.375 GM 50 ML IV SCH ×5 (00:07→23:30)
[2018-11-09] MEDS: ONDANSETRON HCL INJ 2MG/ML 2ML 2 MG/ML VIAL IV PRN ×4 (01:05→15:54)
[2018-11-09] MEDS: LABETALOL HCL 5 MG/ML 20ML VIAL IV PRN ×2 (05:00→12:28)
[2018-11-09 05:05] LABS: BASOPHILS % 0.1 % (0.0-1.0); HEMATOCRIT 28.5 % (34.2-44.1); HEMOGLOBIN 9.7 g/dL (12.0-16.0); LYMPHOCYTES # (AUTO) 0.6 (1.0-3.2); LYMPHOCYTES % 6.9 % (18.0-39.1); MEAN CORPUSCULAR HEMOGLOBIN 30.7 pg (28-32); MEAN CORPUSCULAR VOLUME 90.2 fL (81-99); MONOCYTES # (AUTO) 0.2 (0.2-0.8); MONOCYTES % 2.7 % (4.4-11.3); NEUTROPHILS # (AUTO) 7.1 (2.1-6.9); NEUTROPHILS % 89.7 % (38.7-80.0); PLATELET COUNT 161 x10e3/uL (140-360); RED BLOOD COUNT 3.16 x10e6/uL (3.6-5.1); RED CELL DISTRIBUTION WIDTH 14.5 % (11.7-14.4)
[2018-11-09] MEDS: SODIUM CHLORIDE 0.9% 1000ML 1,000 ML IV SCH ×2 (05:27→15:54)
[2018-11-09 05:50] LABS: ANION GAP 17.3 mmol/L (8-16); BLOOD UREA NITROGEN 6 mg/dL (7-26); BUN/CREATININE RATIO 7 (6-25); CALCIUM 8.1 mg/dL (8.4-10.2); CARBON DIOXIDE 17 mmol/L (22-29); CHLORIDE 109 mmol/L (98-107); CREATININE, SERUM 0.86 mg/dL (0.57-1.11); EST GLOMERULAR FILTRATION RATE > 60 ML/MIN (60-); GLUCOSE 220 mg/dL (74-118); POTASSIUM 3.3 mmol/L (3.5-5.1); SODIUM 140 mmol/L (136-145)
--- NOTE | 2018-11-09 05:59 | NUR ---
called and spoke to Jannet regarding intermittent vomiting overnight. New orders rec's
[2018-11-09] MEDS: SODIUM CHLORIDE 0.9% 250ML IRRIG IR SCH ×4 (06:00→15:37)
--- NOTE | 2018-11-09 06:58 | NUR ---
GI consult to Joss Wright was called . I spoke to Lanny.
[2018-11-09] MEDS: FAMOTIDINE 20 MG TAB PO SCH ×2 (07:30→15:37)
[2018-11-09] MEDS: INSULIN LISPRO 100 UNIT/1 ML 3ML VIAL SQ SCH ×4 (07:30→20:59)
[2018-11-09] MEDS: LUBIPROSTONE 24 MCG CAP PO SCH ×2 (08:00→15:37)
[2018-11-09] MEDS: MEMANTINE 10 MG TAB PO SCH (09:00)
[2018-11-09] MEDS: AMLODIPINE BESYLATE 10 MG TAB PO SCH (09:00)
[2018-11-09] MEDS: FLUOXETINE HCL 20 MG CAP PO SCH (09:00)
[2018-11-09] MEDS: CLOPIDOGREL BISULFATE 75 MG TAB PO SCH (09:00)
[2018-11-09] MEDS: METOPROLOL SUCCINATE 50 MG TAB XL PO SCH (09:00)
[2018-11-09] MEDS: HYDROCORTISONE 10 MG TAB PO SCH (09:00)
[2018-11-09] MEDS: METHYLPHENIDATE HCL 10 MG TAB PO SCH (09:00)
[2018-11-09] MEDS ORDERED: PANTOPRAZOLE 40 MG 10ML VIAL IV STA ×2 (09:26→22:31)
[2018-11-09] MEDS ORDERED: POTASSIUM CHLORIDE 20MEQ/100ML 100 ML IV ONE (09:30)
[2018-11-09] MEDS ORDERED: MAGNESIUM SULFATE 2GM/50ML 50 ML IV ONE (09:30)
[2018-11-09] MEDS: ENOXAPARIN SOD INJ 40 MG/0.4 ML SYR SC SCH (09:55)
[2018-11-09] MEDS: PROMETHAZINE 12.5MG/ NACL 0.9% 12.5 MG/50 ML BAG IV PRN ×2 (09:57→20:36)
[2018-11-09] MEDS: METOPROLOL TARTRATE INJ 1 MG/ML VIAL IV SCH ×3 (09:59→20:36)
--- NOTE | 2018-11-09 10:03 | Diagnostic Imaging Report ---
EXAM: Abdomen 1 View INDICATION: ^Constant vomiting ^[id number] ^[id number] COMPARISON: CT dated 11/07/2018 FINDINGS: Nonobstructive bowel gas pattern. No signs of pneumoperitoneum. No calcification overlying renal shadows. Degenerative changes of lumbar spine, most notable at L3-L4. Pelvic phleboliths. IMPRESSION: 1. Nonobstructive bowel gas pattern. Signed by: Dr. Jose Mckeon MD on 11/09/2018 10:00 AM
--- NOTE | 2018-11-09 10:17 | Progress Note ---
DATE: November 09, 2018 CARDIOLOGY PROGRESS NOTE SUBJECTIVE: Patient denies chest pain or shortness of breath. Her main complaint is of nausea. OBJECTIVE VITALS: Temperature 97.9 degrees, pulse 95, respiratory rate 18, blood pressure 172/68, oxygen saturation 100% on 2 L nasal cannula. GENERAL: Elderly woman, frail, no acute distress. LUNGS: Clear to auscultation bilaterally. No wheezes or crackles. CARDIOVASCULAR: Normal rate, regular rhythm. No murmur. Normal S1 and S2. ABDOMEN: Soft, nontender. EXTREMITIES: No edema. NEUROLOGIC: Left-sided weakness as well as aphasia is noted. CARDIAC MEDICATIONS 1. Atorvastatin 80 mg p.o. nightly. 2. Plavix 75 mg p.o. daily. 3. Metoprolol succinate 50 mg p.o. daily. 4. Amlodipine 10 mg p.o. daily. LABS: WBC 7.92, hemoglobin 9.7, hematocrit 28.5, platelets 161. Sodium 140, potassium 3.3, chloride 109, CO2 of 17, BUN 6, creatinine 0.86. TELEMETRY: Normal sinus rhythm with PVCs. IMPRESSIONS 1. Nonsustained ventricular tachycardia and frequent premature ventricular contractions. 2. Abdominal pain. 3. Nausea and vomiting. 4. Acute kidney injury, improved. 5. Abnormal urinalysis suggestive of urinary tract infection. 6. Elevated lactate, now improved. 7. History of congestive heart failure. 8. Hypertension. 9. Hyperlipidemia. 10. Diabetes mellitus. 11. Cerebrovascular accident x3. RECOMMENDATIONS: The patient's echocardiogram demonstrated normal LV size and systolic function with estimated EF of 55% to 60%. There was pseudonormal LV filling. Monitor the patient on telemetry. Replete electrolytes. Monitor volume status. Small pericardial effusion was noted on echo without evidence of tamponade physiology. As the patient is currently asymptomatic, no further cardiac evaluation is indicated at this time. Management of nausea and vomiting per GI. Thank you for this consult. We will continue to follow. Job#: [id number]
[2018-11-09] MEDS: HYDRALAZINE HCL 20 MG/ML VIAL IV PRN ×2 (10:20→21:07)
[2018-11-09] MEDS: METOCLOPRAMIDE HCL 10 MG/2ML VIAL IV PRN ×2 (10:27→17:12)
--- NOTE | 2018-11-09 11:30 | NUR ---
Attempted to contact MD De Wright in PACU, RN stated that she would give message to
[2018-11-09] MEDS: HYDROCORTISONE SOD SUCCINATE 100 MG VIAL IV SCH ×2 (12:27→21:07)
--- NOTE | 2018-11-09 16:32 | NUR ---
Reached MD Joss Wright, notified of pt's condition, constant NVD, clear KUB, start of Amitiza, administration of antiemetics, hypoactive bowel sounds, unsuccessful NGT insertion, states that he will see pt. No new orders rec'd.
[2018-11-09] MEDS ORDERED: ACETAMINOPHEN 1000 MG/100 ML IV PRN (17:00)
[2018-11-09] MEDS ORDERED: SODIUM CHLORIDE 0.9% 1000ML 200 ML IV ONE (17:00)
--- NOTE | 2018-11-09 17:26 | Progress Note ---
DATE: November 09, 2018 INTERNAL MEDICINE PROGRESS NOTE SUBJECTIVE: She was having lots of vomiting and diarrhea yesterday. Low-grade fever today. She was started on IV Reglan, IV Phenergan. The vomiting seems to be under control right now. PHYSICAL EXAM: VITAL SIGNS: Blood pressure 172/68, temperature 97.9, heart rate 72 per minute, respiratory 18 per minute. Oxygen saturation 100%. HEART: Regular rhythm. Normal S1, S2 sounds. LUNGS: Clear bilaterally. ABDOMEN: Soft. No tension or distention. On the BMP, sodium 140, potassium 3.3, chloride 109, CO2 17, BUN 6, creatinine 0.86, glucose 220. The CBC with white blood count 7.92, hemoglobin 9.7, hematocrit 28.5, platelet count 151,000. PT 12.4, INR 0.85, PTT 17.6. AST 8, ALT 12, total bilirubin 0.4, alkaline phosphatase 52. FINAL IMPRESSION: 1. Episode of nausea, vomiting, and diarrhea. 2. Dehydration. 3. Decreasing urine output because of dehydration. 4. Hypokalemia. 5. Hypomagnesemia. 6. low-grade fever. 7. History of cerebellar cerebrovascular accident. 8. Uncontrolled hypertension. 9. Restless legs syndrome. 10. Hypercholesterolemia. PLAN OF TREATMENT: Continue with current medication regimen which includes Zosyn 3.375 g IV q.6 hour. Continue with normal saline 100 mL an hour. Going to get 200 mL of IV normal saline one time. Zofran 4 mg IV q.4 hours as needed. Reglan 10 mg IV q.6 hours. We are going to continue with Phenergan 12.5 mg IV q.6 hours as needed. Also, she is getting labetalol 10 mg IV q.6 hours as needed for hypertension. Continue monitoring blood sugar q.6 hours with a low-dose sliding scale. Of course, we are going to continue with the metoprolol 5 mg IV q.8 hours. We are holding all the p.o. medication because the patient is throwing up. Hydrocortisone is going to be 50 mg IV q.12 hours. Discussed the case with the daughter at the bedside. Dr. Geovany Wright has been consulted from the gastroenterology point of view because of recurrent vomiting. Job#: [id number] TA
[2018-11-09] MEDS: LINEZOLID 600 MG/D5W 300ML 300 ML IV SCH (17:50)
[2018-11-09 19:11] LABS: BASOPHILS % 0.4 % (0.0-1.0); HEMATOCRIT 24.6 % (34.2-44.1); HEMOGLOBIN 8.3 g/dL (12.0-16.0); LYMPHOCYTES # (AUTO) 0.7 (1.0-3.2); MEAN CORPUSCULAR HEMOGLOBIN 31.2 pg (28-32); MEAN CORPUSCULAR HGB CONC 33.7 g/dL (31-35); MEAN CORPUSCULAR VOLUME 92.5 fL (81-99); MONOCYTES # (AUTO) 0.3 (0.2-0.8); MONOCYTES % 5.6 % (4.4-11.3); NEUTROPHILS # (AUTO) 4.1 (2.1-6.9); NEUTROPHILS % 79.6 % (38.7-80.0); PLATELET COUNT 134 x10e3/uL (140-360); RED BLOOD COUNT 2.66 x10e6/uL (3.6-5.1); RED CELL DISTRIBUTION WIDTH 14.9 % (11.7-14.4)
--- NOTE | 2018-11-09 19:15 | Diagnostic Imaging Report ---
EXAMINATION: CHEST XRAY LINE PLACEMENT INDICATION: ^PICC placement COMPARISON: 11/07/2018. FINDINGS: TUBES and LINES: Left approximate PICC has been placed, with distal tip projected on the expected location of the high SVC. LUNGS: Left basilar patchy density with obscuration of the left hemidiaphragm. There is no evidence of pneumonia or pulmonary edema. PLEURA: No pleural effusion or pneumothorax. HEART AND MEDIASTINUM: The cardiomediastinal silhouette is unremarkable. BONES AND SOFT TISSUES: No acute osseous lesion. Surgical clips in the lower right neck are stable. UPPER ABDOMEN: No free air under the diaphragm. IMPRESSION: Left upper extremity PICC with distal tip projected on the SVC. Patchy density in the left lung base may represent atelectasis. Signed by: Dr. Yolanda De La Garza M.D. on 11/09/2018 7:12 PM
[2018-11-09 19:29] LABS: ANION GAP 11.3 mmol/L (8-16); CALCIUM 7.6 mg/dL (8.4-10.2); CREATININE, SERUM 0.96 mg/dL (0.57-1.11); MAGNESIUM 2.3 MG/DL (1.3-2.1); POTASSIUM 3.3 mmol/L (3.5-5.1)
[2018-11-09] MEDS: ATORVASTATIN 40 MG TAB PO SCH (20:58)
[2018-11-09] MEDS: ROPINIROLE HCL 0.25 MG TAB PO SCH (20:58)
[2018-11-09 21:19] LABS: AMYLASE 16 U/L (25-125); LIPASE 4 U/L (8-78)
--- NOTE | 2018-11-09 22:10 | Diagnostic Imaging Report ---
EXAM: CT ABDOMEN/PELVIS WO DATE: 11/09/2018 4:57 PM INDICATION: Nausea, vomiting COMPARISON: 11/07/2018 TECHNIQUE: The abdomen and pelvis were scanned using a multidetector helical scanner. Coronal and sagittal reformations were obtained. CT low dose techniques were utilized, as applicable. IV Contrast: 0 ml Isovue 300/370 FINDINGS: Lack of IV contrast decreases sensitivity in evaluating abdominal and pelvic organs. In addition, image quality is degraded by motion artifact. LOWER THORAX: Cardiomegaly with stable small pericardial effusion. New small bilateral pleural effusions. Nonspecific 5 mm right lower lobe nodule. LIVER/BILIARY: No masses. No ductal dilatation. GALLBLADDER: Unremarkable SPLEEN: Unremarkable PANCREAS: Unremarkable ADRENALS: Stable nodular thickening of the adrenal glands. KIDNEYS: No stones. No hydronephrosis. GI TRACT: Small hiatal hernia. No evidence of bowel obstruction. Moderate stool burden with improved rectal fecal loading from prior. No evidence of appendicitis. VESSELS: Moderate atherosclerotic calcifications PERITONEUM/RETROPERITONEUM: Nonspecific bilateral perinephric and retroperitoneal stranding. Improved perirectal edema. No fluid collections or free air. LYMPH NODES: No lymphadenopathy REPRODUCTIVE ORGANS/BLADDER: Bladder is partially decompressed with a Armas. SOFT TISSUES: Unremarkable BONES: No suspicious bone lesions. IMPRESSION: 1. No definite acute abnormality on noncontrast evaluation. 2. Moderate stool burden, with decreased rectal fecal loading from prior. Signed by: Dr Tammie Hamm MD on 11/09/2018 10:06 PM
[2018-11-09] MEDS: PANTOPRAZOL 40MG/SOD CHL 0.9% 250 ML IV SCH (22:52)
[2018-11-09] MEDS: METOCLOPRAMIDE HCL 10 MG/2ML VIAL IV SCH (23:30)
[2018-11-10] VITALS (22 sets, daily range): BP systolic 121–187; BP diastolic 50–136
[2018-11-10] MEDS ORDERED: PANTOPRAZOL 40MG/SOD CHL 0.9% 50 ML IV ONE ×2 (00:47→05:40)
[2018-11-10] MEDS: SODIUM CHLORIDE 0.9% 1000ML 1,000 ML IV SCH ×3 (00:53→22:18)
[2018-11-10] MEDS: PANTOPRAZOL 40MG/SOD CHL 0.9% 250 ML IV SCH ×3 (01:00→20:39)
[2018-11-10] MEDS: METOPROLOL TARTRATE INJ 1 MG/ML VIAL IV SCH ×4 (04:06→21:28)
[2018-11-10] MEDS: LINEZOLID 600 MG/D5W 300ML 300 ML IV SCH ×2 (04:06→18:52)
[2018-11-10 04:47] LABS: BASOPHILS % 0.1 % (0.0-1.0); HEMATOCRIT 25.1 % (34.2-44.1); HEMOGLOBIN 8.3 g/dL (12.0-16.0); LYMPHOCYTES # (AUTO) 0.5 (1.0-3.2); LYMPHOCYTES % 7.7 % (18.0-39.1); MEAN CORPUSCULAR HEMOGLOBIN 30.7 pg (28-32); MEAN CORPUSCULAR HGB CONC 33.1 g/dL (31-35); MONOCYTES # (AUTO) 0.2 (0.2-0.8); MONOCYTES % 2.4 % (4.4-11.3); NEUTROPHILS % 89.4 % (38.7-80.0); PLATELET COUNT 151 x10e3/uL (140-360); RED CELL DISTRIBUTION WIDTH 14.9 % (11.7-14.4)
[2018-11-10 05:16] LABS: ALBUMIN 2.3 g/dL (3.5-5.0); CALCIUM 7.5 mg/dL (8.4-10.2); CREATININE, SERUM 0.96 mg/dL (0.57-1.11); PHOSPHORUS 2.6 MG/DL (2.3-4.7)
[2018-11-10] MEDS: PIPER-TAZ 3.375 GM 50 ML IV SCH ×3 (06:05→18:52)
[2018-11-10] MEDS: METOCLOPRAMIDE HCL 10 MG/2ML VIAL IV SCH ×3 (06:05→18:52)
[2018-11-10] MEDS: FAMOTIDINE 20 MG TAB PO SCH ×2 (07:30→16:27)
[2018-11-10] MEDS: LUBIPROSTONE 24 MCG CAP PO SCH ×2 (08:00→17:00)
[2018-11-10] MEDS: HYDROCORTISONE 10 MG TAB PO SCH (08:08)
[2018-11-10] MEDS: AMLODIPINE BESYLATE 10 MG TAB PO SCH (08:09)
[2018-11-10] MEDS: CLOPIDOGREL BISULFATE 75 MG TAB PO SCH (08:09)
[2018-11-10] MEDS: MEMANTINE 10 MG TAB PO SCH (08:09)
[2018-11-10] MEDS: METHYLPHENIDATE HCL 10 MG TAB PO SCH (08:10)
[2018-11-10] MEDS: METOPROLOL SUCCINATE 50 MG TAB XL PO SCH (08:10)
[2018-11-10] MEDS: FLUOXETINE HCL 20 MG CAP PO SCH (08:10)
[2018-11-10] MEDS: INSULIN LISPRO 100 UNIT/1 ML 3ML VIAL SQ SCH ×4 (08:11→21:38)
[2018-11-10] MEDS: HYDRALAZINE HCL 20 MG/ML VIAL IV PRN (08:30)
[2018-11-10] MEDS ORDERED: SALINE 0.65% NAS SOLN 1 SPRAY BTL PRN (08:45)
[2018-11-10] MEDS: PANTOPRAZOLE 40 MG 10ML VIAL IV SCH (09:30)
[2018-11-10] MEDS: ENOXAPARIN SOD INJ 40 MG/0.4 ML SYR SC SCH (09:30)
[2018-11-10] MEDS: HYDROCORTISONE SOD SUCCINATE 100 MG VIAL IV SCH ×2 (09:30→21:28)
[2018-11-10] MEDS: ONDANSETRON HCL INJ 2MG/ML 2ML 2 MG/ML VIAL IV PRN (10:00)
[2018-11-10] MEDS ORDERED: POTASSIUM CHLORIDE 20MEQ/100ML 200 ML IV ONE (12:00)
--- NOTE | 2018-11-10 17:20 | Progress Note ---
DATE: November 10, 2018 INTERNAL MEDICINE PROGRESS NOTE SUBJECTIVE: The patient is still vomiting. PHYSICAL EXAM: HEART: Shows regular rhythm. Normal S1 and S2 sounds. LUNGS: Clear bilaterally. ABDOMEN: Soft. No tenderness, no distention, no visceromegaly. EXTREMITIES: Show no evidence of cyanosis, edema or trauma. FINAL IMPRESSION: 1. Recurrent vomiting. 2. Urinary tract infection. 3. Hypertension. 4. Hyperlipidemia. 5. Uncontrolled diabetes mellitus type 2. PLAN OF TREATMENT: We are going to continue with Zosyn 3.375 grams IV q.6 hours. Continue Protonix 40 mg IV daily. Continue with replacing her potassium as needed. Lovenox 40 mg subcutaneous daily. She is unable to take any p.o.'s. She is on Amitiza 24 mcg p.o. twice a day. Hydralazine 20 mg IV q.4 hours as needed. Promethazine 12.5 mg IV q.4 hours as needed. She is on metoprolol 5 mg IV q.6 hours. Monitor blood sugar q.6 hours. We are going to start her on Catapres patch. She is on Solu-Medrol 50 mg IV twice a day and Reglan 10 mg IV q.6 hours. Job#: [id number] EV
--- NOTE | 2018-11-10 17:27 | Discharge Summary ---
NO DICTATION, length 0 minutes 1 second. JOSE GRACE MD Job#: [id number] EV
[2018-11-10] MEDS: CLONIDINE HCL 0.3MG/24 HR PATCH TOP SCH (18:52)
[2018-11-10] MEDS ORDERED: SODIUM CHLORIDE 0.9% 50ML 50 ML ONE (20:37)
[2018-11-10] MEDS: ROPINIROLE HCL 0.25 MG TAB PO SCH (21:00)
[2018-11-10] MEDS: ATORVASTATIN 40 MG TAB PO SCH (21:00)
--- NOTE | 2018-11-10 21:10 | Progress Note ---
DATE: November 10, 2018 CARDIOLOGY PROGRESS NOTE SUBJECTIVE: Patient is very lethargic, has been vomiting this morning, cannot report a review of systems due to lethargy. PHYSICAL EXAMINATION: VITAL SIGNS: Temperature is 98.2, heart rate is 93, respirations are 16, blood pressure is 165/128, oxygen saturation 100% on 2 liters nasal cannula. GENERAL: She is a chronically ill-appearing elderly woman, lying comfortably in bed, no apparent distress. CARDIOVASCULAR: She is intermittently tachycardic. Regular rhythm. LUNGS: Diminished breath sounds at bilateral bases. ABDOMEN: Soft, nontender. EXTREMITIES: No edema. NEUROLOGIC: Left-sided weakness and aphasia. CARDIOVASCULAR MEDICATIONS: Reviewed. LABORATORY DATA: Reviewed. Hemoglobin 8.3. Sodium 137, potassium 3, creatinine 0.96. TELEMETRY MONITORING: Revealed sinus tachycardia. IMPRESSION: 1. History of nonsustained ventricular tachycardia and premature ventricular complexes. 2. Abdominal pain. 3. Nausea and vomiting. 4. Xopmb-mr-oovfasl kidney injury, improved. 5. Congestive heart failure. 6. Hypertension. 7. Hyperlipidemia. 8. Cerebrovascular accident. RECOMMENDATIONS: Echocardiogram revealed normal left ventricular systolic function with an estimated ejection fraction of 55% to 60%. She has grade 2 diastolic dysfunction. Telemetry monitoring revealed reduction in PVCs. Patient is currently receiving scheduled intravenous metoprolol given n.p.o. status and significant vomiting. Continue other cardiovascular medications. Management of nausea and vomiting per gastroenterology. Thank you for the consultation. Will continue to follow. Job#: [id number]
[2018-11-11] VITALS (26 sets, daily range): BP systolic 108–190; BP diastolic 50–126
[2018-11-11] MEDS: PIPER-TAZ 3.375 GM 50 ML IV SCH ×4 (00:40→17:26)
[2018-11-11] MEDS ORDERED: SODIUM CHLORIDE 0.9% 50ML 50 ML ONE ×2 (02:03→07:31)
[2018-11-11] MEDS: PANTOPRAZOL 40MG/SOD CHL 0.9% 250 ML IV SCH ×2 (02:04→07:53)
[2018-11-11] MEDS: METOPROLOL TARTRATE INJ 1 MG/ML VIAL IV SCH ×4 (04:34→21:36)
[2018-11-11] MEDS: LINEZOLID 600 MG/D5W 300ML 300 ML IV SCH ×2 (04:39→17:11)
[2018-11-11 05:10] LABS: CALCIUM 7.8 mg/dL (8.4-10.2); CREATININE, SERUM 0.94 mg/dL (0.57-1.11)
[2018-11-11] MEDS ORDERED: METOCLOPRAMIDE HCL 10 MG/2ML VIAL IV SCH (06:00)
[2018-11-11] MEDS: HYDRALAZINE HCL 20 MG/ML VIAL IV PRN ×2 (06:34→23:29)
[2018-11-11] MEDS: METOCLOPRAMIDE 10MG/2ML VIAL 15 MG in SODIUM CHLORIDE 0.9% 50ML 50 ML IV SCH ×4 (06:43→23:40)
[2018-11-11] MEDS: INSULIN LISPRO 100 UNIT/1 ML 3ML VIAL SQ SCH ×4 (07:43→21:19)
[2018-11-11 07:48] LABS: BASOPHILS % 0.1 % (0.0-1.0); HEMATOCRIT 30.3 % (34.2-44.1); HEMOGLOBIN 10.2 g/dL (12.0-16.0); LYMPHOCYTES # (AUTO) 0.7 (1.0-3.2); LYMPHOCYTES % 9.7 % (18.0-39.1); MEAN CORPUSCULAR HEMOGLOBIN 31.3 pg (28-32); MEAN CORPUSCULAR HGB CONC 33.7 g/dL (31-35); MEAN CORPUSCULAR VOLUME 92.9 fL (81-99); MONOCYTES # (AUTO) 0.3 (0.2-0.8); MONOCYTES % 3.7 % (4.4-11.3); NEUTROPHILS # (AUTO) 5.7 (2.1-6.9); NEUTROPHILS % 85.9 % (38.7-80.0); PLATELET COUNT 188 x10e3/uL (140-360); RED BLOOD COUNT 3.26 x10e6/uL (3.6-5.1); RED CELL DISTRIBUTION WIDTH 14.9 % (11.7-14.4)
[2018-11-11] MEDS: FLUOXETINE HCL 20 MG CAP PO SCH (07:52)
[2018-11-11] MEDS: METHYLPHENIDATE HCL 10 MG TAB PO SCH (07:52)
[2018-11-11] MEDS: CLOPIDOGREL BISULFATE 75 MG TAB PO SCH (07:52)
[2018-11-11] MEDS: METOPROLOL SUCCINATE 50 MG TAB XL PO SCH (07:52)
[2018-11-11] MEDS: AMLODIPINE BESYLATE 10 MG TAB PO SCH (07:52)
[2018-11-11] MEDS: HYDROCORTISONE 10 MG TAB PO SCH (07:53)
[2018-11-11] MEDS: PANTOPRAZOLE 40 MG 10ML VIAL IV SCH (07:53)
[2018-11-11] MEDS: LUBIPROSTONE 24 MCG CAP PO SCH ×2 (07:53→17:00)
[2018-11-11] MEDS: MEMANTINE 10 MG TAB PO SCH (07:53)
[2018-11-11] MEDS: SODIUM CHLORIDE 0.9% 1000ML 1,000 ML IV SCH ×2 (09:06→17:26)
[2018-11-11] MEDS: ENOXAPARIN SOD INJ 40 MG/0.4 ML SYR SC SCH (09:06)
[2018-11-11] MEDS: HYDROCORTISONE SOD SUCCINATE 100 MG VIAL IV SCH ×2 (09:06→21:30)
[2018-11-11] MEDS ORDERED: POTASSIUM CHLORIDE 20MEQ/100ML 200 ML IV ONE ×2 (09:15→18:15)
[2018-11-11] MEDS: PANTOPRAZOL 40MG/SOD CHL 0.9% 50 ML IV SCH ×3 (09:45→21:30)
--- NOTE | 2018-11-11 10:12 | Progress Note ---
DATE: November 11, 2018 CARDIOLOGY PROGRESS NOTE SUBJECTIVE: Patient denies chest pain or shortness of breath. She is still complaining of nausea. OBJECTIVE VITALS: Temperature 99.1 degrees, pulse 87, respiratory rate 19, blood pressure 178/73, oxygen saturation 99% on 2 L nasal cannula. GENERAL: Chronically ill-appearing, elderly woman in no acute distress. Awake and alert. LUNGS: Diminished breath sounds at bilateral bases. Otherwise, clear to auscultation. CARDIOVASCULAR: Normal rate, regular rhythm. No murmur. Normal S1 and S2. ABDOMEN: Soft, nontender. EXTREMITIES: No edema. CARDIAC MEDICATIONS 1. Hydralazine 20 mg IV q.4 h. p.r.n. 2. Metoprolol tartrate 5 mg IV q.6 h. 3. Clonidine patch. 4. Hydralazine 50 mg p.o. q.8 h. 5. Atorvastatin 80 mg p.o. nightly. 6. Plavix 75 mg p.o. daily. 7. Metoprolol succinate 50 mg p.o. daily. 8. Amlodipine 10 mg p.o. daily. LABS: WBC 6.69, hemoglobin 10.2, hematocrit 30.3, platelets 188. Sodium 136, potassium 3, chloride 107, CO2 of 16, BUN 7, creatinine 0.94. TELEMETRY: Normal sinus rhythm with nonsustained ventricular tachycardia. IMPRESSIONS 1. Nonsustained ventricular tachycardia and premature ventricular contractions. 2. Abdominal pain. 3. Nausea and vomiting. 4. Cpslh-ej-pesdtwr kidney injury, improved. 5. History of congestive heart failure. 6. Hypertension. 7. Hyperlipidemia. 8. Cerebrovascular accident. RECOMMENDATIONS: Echocardiogram revealed normal LV systolic function with estimated LVEF of 55% to 60% with grade-2 diastolic dysfunction. Continue current cardiac medications. Replete electrolytes. Monitor the patient on telemetry. Management of nausea and vomiting per GI. Thank you for this consult. We will continue to follow. Job#: [id number]
--- NOTE | 2018-11-11 16:16 | NUR ---
GAVE FAMILY CHOICES OF FACILITIES IN NETWORK AND SHE WILL NOTIFY THE SW OF CHOICE
[2018-11-11 17:35] LABS: ANION GAP 15.4 mmol/L (8-16); CALCIUM 7.5 mg/dL (8.4-10.2); POTASSIUM 3.4 mmol/L (3.5-5.1)
--- NOTE | 2018-11-11 18:25 | Progress Note ---
DATE: November 11, 2018 INTERNAL MEDICINE PROGRESS NOTE SUBJECTIVE: Patient is doing better. She is not vomiting; so, we are going to start a liquid diet today. PHYSICAL EXAM: HEART: Shows regular rhythm. Normal S1 and S2 sounds. LUNGS: Clear bilaterally. ABDOMEN: Soft. EXTREMITIES: Show no evidence of cyanosis, edema or trauma. VITAL SIGNS: Blood pressure 179/78. Temperature is 98. Heart rate 88 per minute. Respiratory rate 17 per minute. Oxygen saturation 100%. BLOOD WORK: BMP showed sodium 136, potassium 3.0, chloride 107, CO2 16, BUN 7, creatinine 0.94, glucose 195. On the CBC: White blood count 6.69, hemoglobin 10.2, hematocrit 30.3, platelet count 198,000. PT 12.4, PTT 17.6, INR 0.85. AST 8, ALT 8, total bilirubin 0.5, alkaline phosphatase 47. FINAL IMPRESSION: 1. Vomiting most likely related to diabetic gastroparesis. 2. Urinary tract infection with a urine culture negative now. 3. Hypertension. 4. Hyperlipidemia. 5. Diabetes mellitus type 2. 6. Status post cerebellar cerebrovascular accident. PLAN OF TREATMENT: We are going to continue with Reglan 15 mg q.6 hours. Continue Protonix drip. Continue Lovenox 40 mg subcutaneously daily. Metoprolol 50 mg daily. Continue Requip 0.25 mg at bedtime. Metoprolol 5 mg IV q.6 hours. Clonidine patch 0.3 mg once a week. Continue on Dulcolax 10 mg daily. Plavix 75 mg daily. Lipitor 80 mg daily. Diazepam 5 mg twice a day as needed. Continue Solu-Medrol 50 mg IV twice a day. Namenda 10 mg daily. Hydralazine 50 mg q.8 hours when she is able to tolerate the diet. Ritalin 5 mg daily. Promethazine 12.5 mg IV q.6 hours as needed. Labetalol 10 mg IV q.6 hours as needed for hypertension. Amlodipine 10 mg daily. Fluoxetine 20 mg daily. Amitiza 24 mcg p.o. twice a day. Hydralazine 20 mg q.4 hours. She is going to be transferred to [facility]. She had an episode of nonsustained VTAC today. She received potassium. The last potassium today is 3.4. We are going to replace the potassium again and recheck the BMP tomorrow with a level of magnesium. Job#: [id number] EV
[2018-11-11] MEDS: ROPINIROLE HCL 0.25 MG TAB PO SCH (21:30)
[2018-11-11] MEDS: ATORVASTATIN 40 MG TAB PO SCH (21:30)
--- NOTE | 2018-11-11 23:08 | NUR ---
patient refused a bath
[2018-11-12] VITALS (18 sets, daily range): BP systolic 114–190; BP diastolic 46–74
[2018-11-12] MEDS: PANTOPRAZOL 40MG/SOD CHL 0.9% 50 ML IV SCH ×4 (03:43→13:00)
[2018-11-12] MEDS: SODIUM CHLORIDE 0.9% 1000ML 1,000 ML IV SCH (04:18)
[2018-11-12] MEDS: METOPROLOL TARTRATE INJ 1 MG/ML VIAL IV SCH ×2 (05:00→09:53)
[2018-11-12] MEDS: LINEZOLID 600 MG/D5W 300ML 300 ML IV SCH ×2 (05:01→17:20)
[2018-11-12 05:07] LABS: ANION GAP 13.5 mmol/L (8-16); BLOOD UREA NITROGEN 8 mg/dL (7-26); BUN/CREATININE RATIO 9 (6-25); CARBON DIOXIDE 13 mmol/L (22-29); CHLORIDE 117 mmol/L (98-107); CREATININE, SERUM 0.91 mg/dL (0.57-1.11); EST GLOMERULAR FILTRATION RATE > 60 ML/MIN (60-); GLUCOSE 158 mg/dL (74-118); POTASSIUM 3.5 mmol/L (3.5-5.1); SODIUM 140 mmol/L (136-145)
[2018-11-12 05:24] LABS: CALCIUM 6.6 mg/dL (8.4-10.2)
--- NOTE | 2018-11-12 05:48 | NUR ---
received critical calcium from zain in the lab at 0523. Paged Dr. Newsome and no orders were given.
[2018-11-12] MEDS: METOCLOPRAMIDE 10MG/2ML VIAL 15 MG in SODIUM CHLORIDE 0.9% 50ML 50 ML IV SCH ×4 (07:08→23:56)
--- NOTE | 2018-11-12 07:45 | NUR ---
Patient received asleep and awakened for assessment. She is Ox2 to person and place, but not to today's date. She answered the year "2019" correctly. Denies any pain or discomfort. Respirations are even and unlabored.
[2018-11-12] MEDS: INSULIN LISPRO 100 UNIT/1 ML 3ML VIAL SQ SCH ×4 (08:00→21:32)
[2018-11-12] MEDS: LUBIPROSTONE 24 MCG CAP PO SCH ×2 (08:00→17:20)
--- NOTE | 2018-11-12 08:15 | NUR ---
Daughter arrived and is at bedside. She will assist with feeding patient.
[2018-11-12] MEDS: HYDROCORTISONE SOD SUCCINATE 100 MG VIAL IV SCH (09:12)
[2018-11-12] MEDS: HYDROCORTISONE 10 MG TAB PO SCH (09:13)
[2018-11-12] MEDS: MEMANTINE 10 MG TAB PO SCH (09:14)
[2018-11-12] MEDS: AMLODIPINE BESYLATE 10 MG TAB PO SCH (09:15)
[2018-11-12] MEDS: CLOPIDOGREL BISULFATE 75 MG TAB PO SCH (09:15)
[2018-11-12] MEDS: FLUOXETINE HCL 20 MG CAP PO SCH (09:15)
[2018-11-12] MEDS: METHYLPHENIDATE HCL 10 MG TAB PO SCH (09:16)
[2018-11-12] MEDS: METOPROLOL SUCCINATE 50 MG TAB XL PO SCH (09:17)
[2018-11-12] MEDS: ENOXAPARIN SOD INJ 40 MG/0.4 ML SYR SC SCH (09:17)
[2018-11-12] MEDS: FUROSEMIDE INJ 10 MG/ML 2 ML VIAL IV SCH (11:30)
[2018-11-12] MEDS: LISINOPRIL 20 MG TAB PO SCH (11:30)
--- NOTE | 2018-11-12 12:34 | Progress Note ---
DATE: November 12, 2018 CARDIOLOGY PROGRESS NOTE SUBJECTIVE: Patient denies chest pain or shortness of breath. Her arms are more swollen. She reports her nausea is better. OBJECTIVE VITALS: Temperature 98.8 degrees, pulse 83, respiratory rate 16, blood pressure 172/64, oxygen saturation 96% on 2 L nasal cannula. GENERAL: Chronically ill-appearing, elderly woman in no acute distress. Awake and alert. LUNGS: Diminished breath sounds at bilateral bases. Otherwise, clear to auscultation. CARDIOVASCULAR: Normal rate, regular rhythm. No murmur. Normal S1 and S2. ABDOMEN: Soft, nontender. EXTREMITIES: 1+ pitting edema in upper extremities. No edema of bilateral lower extremities. CARDIAC MEDICATIONS 1. Metoprolol succinate 50 mg p.o. daily. 2. Plavix 75 mg p.o. daily. 3. Amlodipine 10 mg p.o. daily. 4. Atorvastatin 80 mg p.o. nightly. 5. Clonidine patch. LABS: Sodium 140, potassium 3.5, chloride 117, CO2 13, BUN 8, creatinine 0.91. BNP 219. Calcium 6.6. TELEMETRY: Normal sinus rhythm. IMPRESSIONS 1. Nonsustained ventricular tachycardia and premature ventricular contractions. 2. Abdominal pain. 3. Nausea and vomiting. 4. Knmdv-ti-sukrykr kidney injury, improved. 5. History of congestive heart failure. 6. Hypertension. 7. Hyperlipidemia. 8. Cerebrovascular accident. RECOMMENDATIONS: Echocardiogram revealed normal LV systolic function with estimated LVEF of 55% to 60% with grade-2 diastolic dysfunction. Continue current cardiac medications. Stop IV fluids. Start low-dose diuretic. Replete electrolytes. Monitor the patient on telemetry. Management of nausea and vomiting per GI. The patient's blood pressure is elevated. Resume lisinopril. Thank you for this consult. We will continue to follow. Job#: [id number]
[2018-11-12] MEDS ORDERED: CALCIUM GLUCONATE 10% INJ 4.65 MEQ in SODIUM CHLORIDE 0.9% 100 ML IV ONE (13:45)
--- NOTE | 2018-11-12 15:13 | NUR ---
Nutrition Intervention Note RD Recommendation(s) for Physician: - Advance to ADA/ GI soft diet with snacks as medically appropriate - Rec Glucerna (Chocolate) BID to promote PO intake - Encourage PO intake; provide feeding assistance as needed - Consider appetite stimulant - Obtain daily weight The patient meets criteria for MODERATE protein-calorie malnutrition. Plan of Care: RD following, monitoring for tolerance and adequacy, ONS rec Nutrition reason for involvement: Follow up RD Assessment 11/12 Chart reviewed. Pt was discussed during rounds. Per RN, pt had nausea and vomiting yesterday. Currently on full liquid diet but PO intake is poor (~30%). RN given ONS and will encourage PO intake. Currently on Lasix for swelling. Visited pt in the room. Pt reports her nausea is better. No vomiting episode today. Family and RN have been assisting with feeding but pt doesnt eat much. LBM 11/08. RN reports pt not chewing solid as well but family reports pt chewing ok if they cut up the foods. No swallowing difficulty noted. Will continue to monitor and follow. 11/08 Chart reviewed. Pt was discussed during rounds. 73yo F, who is admitted for abdominal pain, nausea and vomiting. CT abd/pel showed fecal impaction. RN Sea states constipation has resolved. Visited pt in the room. Daughter on bedside to provide hx. Per daughter, pt has had ~10lbs weight loss since 07/2018; UBW ~120lbs. Pt has not been eating much for months. For lunch today, pt had <25% meal intake. Pt was given meds for nausea today. No other GI complains noted. No chewing or swallowing difficulty noted. Pt doesnt like Ensure but willing to try Glucerna. Communicated RD rec to RN. Will continue to monitor and follow. Principal Problems/Diagnoses: 1. Nonsustained ventricular tachycardia and frequent premature ventricular contractions. 2. Abdominal pain. 3. Nausea and vomiting. 4. Acute kidney injury versus chronic kidney disease. 5. Abnormal urinalysis suggestive of urinary tract infection. 6. Elevated lactate, now improved. PMH: hypertension, hyperlipidemia, diabetes mellitus, questionable history of congestive heart failure, and CVA x3 GI: abdomen flat, soft, non-tender, flatus present Skin: no wound present per chart Labs: (11/12) Glucose 197 H (11/08) K 3.3 L, Glucose 188 H, Ca 7.8 L Meds: protonix, lasix, insulin Ht: 61in Wt: 110lb 11/08, 108.38lb 11/12 BMI: 20.8kg/m2 IBW: 105lb Malnutrition Evaluation (11/08/2018) The patient meets criteria for MODERATE protein-calorie malnutrition. Energy intake: <75% of estimated energy requirements for >3 months Weight loss: >7.5% in 3 months (Chronic) Fat loss: Moderate somewhat hollow orbital region Muscle loss: Moderate temporal depression Supporting Evidence: Fluid accumulation: unable to evaluate Functional Status: no changes Nutrition Prescription (Diet Order): full liquid diet Diet Adequacy: Not meeting calorie needs, Not meeting protein needs Diet Education Needs Assessment: Diet education not indicated. Nutrition Care Level: mod Nutrition Diagnosis: Inadequate oral intake related to chronic illness as evidenced by poor appetite and 10lbs weight loss in 3 months. Goal: Patient will meet 75-100% of estimated needs by follow up Progress: Not progressing Interventions: Carbohydrate-modified diet, Commercial beverage Monitoring/Evaluation: Total energy intake, Total protein intake, Modified diet, Liquid supplement, Weight change Signed: Mamie Gutierres, MS, RD, LD
--- NOTE | 2018-11-12 16:36 | Progress Note ---
DATE: November 12, 2018 INTERNAL MEDICINE PROGRESS NOTE SUBJECTIVE: Patient is doing better now. She had an episode of falling to one side when she was sitting. We did a CT of the head. We consulted Dr. Anali Fierro, neurology, because she had a history of cerebellar CVA in the past. Patient is eating poorly right now, but she is tolerating a liquid diet. We are going to upgrade the diet to a mechanical soft diet which is going to be diabetic renal diet. PHYSICAL EXAM VITAL SIGNS: Blood pressure 182/74, temperature 98.8, heart rate 81 per minute, respiratory rate 16 per minute. Oxygen saturation 96%. HEART: Regular rhythm, normal S1, S2 sounds. LUNGS: Clear bilaterally. ABDOMEN: Soft. EXTREMITIES: Show evidence of 2+ bilateral pedal edema. IV fluids have been discontinued. LABS: On the BMP, sodium 140, potassium 3.5, chloride 117, CO2 13, BUN 8, creatinine 0.91, glucose 158. On the CBC, white blood count 6.69, hemoglobin 10.2, hematocrit 30.3, platelet count 188,000. PT 12.4, INR 0.85, PTT 17.6. AST 8, ALT 8, total bilirubin 0.5, alkaline phosphatase 47. FINAL IMPRESSION 1. Episode of recurrent vomiting which is finally resolving. Tolerating the liquid diet. 2. Urinary tract infection. 3. Hypertension. 4. Hyperlipidemia. 5. Diabetes mellitus type 2 with chronic renal insufficiency. 6. History of cerebellar cerebrovascular accident in the past. PLAN OF TREATMENT: Continue Zyvox 300 mg IV q.12 hours, metoclopramide 15 mg IV q.6 hours, Protonix drip, Zofran 4 mg IV q.4 hours as needed, D50 IV push as needed for hypoglycemia, Namenda 10 mg daily, hydralazine 50 mg q.8 hours, Ritalin 5 mg daily, promethazine 12.5 mg IV q.4 hours as needed for nausea and vomiting, lisinopril 40 mg daily, labetalol 10 mg IV q.6 hours as needed for hypertension, amlodipine 10 mg daily, fluoxetine 20 mg daily, Amitiza 24 mcg p.o. twice a day, hydralazine 20 mg IV q.4 hours as needed for hypertension, continuous blood monitoring of blood sugar a.c. and nightly, Lovenox 40 mg subcutaneous daily for DVT prophylaxis, metoprolol 50 mg daily, hydrocortisone 10 mg daily has been discontinued because she is taking hydrocortisone IV 50 mg twice a day when she was vomiting, Requip 0.25 mg daily, metoprolol 5 mg IV q.6 hours which is going to be discontinued because now she is able to tolerate the diet so going to put her on metoprolol 50 mg daily. Continue clonidine patch 0.3 mg once a week, Dulcolax 10 mg daily as needed for constipation, Plavix 75 mg daily, diazepam 5 mg twice a day as needed for anxiety, Lipitor 80 mg daily, furosemide 20 mg daily, potassium 20 mEq daily. The case has been discussed with the daughter at bedside and the nurse. A CT of the head has been done because of the episode of falling in the chair and Dr. Jones will be covering for me starting today, November at 4:30 p.m. until November at 7:00 a.m. Job#: [id number] BALBIR
[2018-11-12] MEDS: HYDRALAZINE HCL 25 MG TAB PO SCH (16:53)
--- NOTE | 2018-11-12 19:22 | Diagnostic Imaging Report ---
Images made available for interpretation on 11/12/2018 at 7:00 PM. EXAMINATION: Head CT HISTORY: Unsteady gait and backward sway COMPARISON: Brain MRI on 09/27/2018 TECHNIQUE: Multidetector axial images were obtained without contrast from the foramen magnum to the vertex . The images were reconstructed using brain and bone algorithms. Thin section brain images were reformatted into coronal and sagittal planes. Image quality: Motion/streaking artifact limits the evaluation of the skull base and posterior cranial fossa. Dose modulation, iterative reconstruction, and/or weight based adjustment of the mA/kV was utilized to reduce the radiation dose to as low as reasonably achievable. FINDINGS: Parenchyma: 1. Persistent left greater than right middle cerebellar pedicles/lateral pj hypodensity/gliosis without associated mass effect, sequela from remote insult. There are visualized on prior MRIs. 2. Questionable hypodensity in the medullary versus artifact. 3. Persistent mildly matter chronic microvascular ischemic changes. 4. No mass or hemorrhage. No CT evidence of acute territorial vascular insult. Extra-axial spaces:No abnormal density. No extra-axial fluid collections Brain volume: Mild generalized brain portal nodes, slightly disproportionate prominence of the cerebellar folia. Ventricles: No hydrocephalus or displacement. Arteries: No density suggestive of thrombus. Dural sinuses: No abnormal density. Extra-axial spaces: No abnormal density. Foramen magnum: No mass, Chiari malformation, or basilar invagination. Sella: No obvious mass. Paranasal/mastoid sinuses: Persistent opacification and sclerosis of the left middle ear and mastoid air cells. Skull/Scalp: No lytic or blastic lesions. No fractures. IMPRESSION: 1. No acute intracranial hemorrhage or cortical infarcts. 2. Chronic hypodensities/gliosis in the bilateral middle cerebellar peduncles/lateral pj are again noted. This may explain the patient's symptoms. 3. Persistent mild chronic microvascular ischemic changes Signed by: Dr. Gwen Seals M.D. on 11/12/2018 7:18 PM
[2018-11-12] MEDS ORDERED: PANTOPRAZOL 40MG/SOD CHL 0.9% 50 ML IV SCH (19:30)
[2018-11-12] MEDS ORDERED: HYDRALAZINE HCL 25 MG TAB PO SCH (21:00)
[2018-11-12] MEDS: ATORVASTATIN 40 MG TAB PO SCH (21:31)
[2018-11-12] MEDS: ROPINIROLE HCL 0.25 MG TAB PO SCH (21:31)
--- NOTE | 2018-11-12 22:47 | NUR ---
Received bedside report from Micaela RYO. Patient is at baseline orientation with no acute signs of distress. Bed is locked in lowest position with call light within reach.
[2018-11-12] MEDS: PANTOPRAZOLE 40 MG 10ML VIAL IV SCH (23:53)
[2018-11-13] VITALS (21 sets, daily range): BP systolic 121–167; BP diastolic 43–113
[2018-11-13 04:53] LABS: ANION GAP 11.6 mmol/L (8-16); CALCIUM 7.6 mg/dL (8.4-10.2); CREATININE, SERUM 0.98 mg/dL (0.57-1.11)
[2018-11-13] MEDS: LINEZOLID 600 MG/D5W 300ML 300 ML IV SCH (05:04)
[2018-11-13 05:12] LABS: POTASSIUM 2.6 mmol/L (3.5-5.1)
[2018-11-13] MEDS ORDERED: POTASSIUM CHLORIDE 20 MEQ TAB CR PO STA (05:52)
[2018-11-13] MEDS ORDERED: POTASSIUM CHLORIDE 20MEQ/100ML 200 ML IV ONE (06:00)
[2018-11-13] MEDS: METOCLOPRAMIDE 10MG/2ML VIAL 15 MG in SODIUM CHLORIDE 0.9% 50ML 50 ML IV SCH ×4 (07:04→23:46)
--- NOTE | 2018-11-13 07:20 | NUR ---
Patient received asleep and awakens when called by name. Respirations are even and unlabored. Denies any pain or discomfort. V/S are stable.
[2018-11-13] MEDS: POTASSIUM CHLORIDE 20 MEQ TAB CR PO SCH ×3 (08:00→11:00)
[2018-11-13] MEDS: INSULIN LISPRO 100 UNIT/1 ML 3ML VIAL SQ SCH ×4 (08:00→21:00)
[2018-11-13] MEDS: LUBIPROSTONE 24 MCG CAP PO SCH ×2 (08:30→17:05)
[2018-11-13] MEDS: FUROSEMIDE INJ 10 MG/ML 2 ML VIAL IV SCH (09:16)
[2018-11-13] MEDS: HYDRALAZINE HCL 25 MG TAB PO SCH ×2 (09:18→17:06)
[2018-11-13] MEDS: HYDROCORTISONE 10 MG TAB PO SCH (09:19)
[2018-11-13] MEDS: MEMANTINE 10 MG TAB PO SCH (09:20)
[2018-11-13] MEDS: CLOPIDOGREL BISULFATE 75 MG TAB PO SCH (09:21)
[2018-11-13] MEDS: AMLODIPINE BESYLATE 10 MG TAB PO SCH (09:21)
[2018-11-13] MEDS: LISINOPRIL 20 MG TAB PO SCH (09:23)
[2018-11-13] MEDS: METHYLPHENIDATE HCL 10 MG TAB PO SCH (09:23)
[2018-11-13] MEDS: FLUOXETINE HCL 20 MG CAP PO SCH (09:23)
[2018-11-13] MEDS: ENOXAPARIN SOD INJ 40 MG/0.4 ML SYR SC SCH (09:24)
[2018-11-13] MEDS: METOPROLOL SUCCINATE 50 MG TAB XL PO SCH (09:24)
--- NOTE | 2018-11-13 11:30 | NUR ---
Dr. Fierro (Neuro) here to see patient and evaluate her. Patient's grandson(Mariano) at bedside and Dr. Fierro spoke to him about patient and CT results.
[2018-11-13] MEDS: PANTOPRAZOLE 40 MG 10ML VIAL IV SCH ×2 (11:45→23:46)
[2018-11-13] MEDS: LEVOFLOXACIN 500MG/D5W 100ML 100 ML IV SCH (13:45)
--- NOTE | 2018-11-13 14:59 | Diagnostic Imaging Report ---
EXAMINATION: CHEST SINGLE (PORTABLE) INDICATION: CHF. COMPARISON: Chest radiograph 11/09/2018. FINDINGS: TUBES and LINES: Left-sided PICC terminates at the expected location of the cavoatrial junction. LUNGS: Persistent left retrocardiac opacity. No evidence of pulmonary edema. PLEURA: No pleural effusion or pneumothorax. HEART AND MEDIASTINUM: The cardiomediastinal silhouette is unremarkable. BONES AND SOFT TISSUES: No acute osseous abdomen. Surgical clips project of the right lower neck. UPPER ABDOMEN: No free air under the diaphragm. IMPRESSION: Patchy left retrocardiac opacity which could represent atelectasis or pneumonia in the appropriate clinical setting. No evidence of pulmonary edema. Signed by: Dr. Billy Juan MD on 11/13/2018 2:55 PM
--- NOTE | 2018-11-13 15:20 | Consultation ---
DATE OF CONSULTATION: November 13, 2018 NEUROLOGY CONSULT NOTE HISTORY OF PRESENT ILLNESS: Ms. Knapp is a 73-year-old right hand dominant woman with past medical history significant for hypertension, hyperlipidemia, diabetes mellitus type 2, and multiple prior strokes, admitted to [facility] on November 07, 2018 with urosepsis, acute renal insufficiency, and nonsustained ventricular tachycardia. A neurology consultation is requested to evaluate for possible stroke. As stated above, Ms. Knapp was admitted to [facility] with urosepsis, acute renal insufficiency, and nonsustained ventricular tachycardia. During her hospitalization, Ms. Knapp was found to have an impacted bowel as well. Over the past few days, Ms. Knapp has received treatments for the aforementioned. On Monday, November 12, 2018, the patient attempted to ambulate with physical therapy. She was witnessed by her daughter to have an unsteady gait with backwards swing. Concerned that Ms. Knapp had experienced another stroke, the daughter informed the patient's nurse of her suspicion. The nurse then alerted the patient's primary attending, Dr. Power, who ordered a CT of the brain without contrast and requested a neurology consultation. Ms. Knapp has been seen by me on multiple occasions in the past, most recently in September of 2018. At that time, the patient was diagnosed with recrudescence of prior deficits secondary to dehydration with lelwi-jx-yttaord renal failure. REVIEW OF SYSTEMS: Abdominal pain, nausea, vomiting, dysarthria, left hemiparesis, poor balance, gait impairment, mild confusion. Otherwise, 12-point review of systems is negative. PAST MEDICAL HISTORY: Hypertension, hyperlipidemia, diabetes mellitus type 2, multiple prior strokes with the most recent being in July 2018. PAST SURGICAL HISTORY: Partial hysterectomy, removal of a growth on the thyroid gland, bilateral tubal ligation. PAST HOSPITALIZATIONS: Surgeries/procedures as listed, childbirth x3, prior hospitalization for poor appetite and decreased oral intake, stroke in May 2018, stroke in July 2018, dehydration with dqxil-jy-cqlacuz renal failure in September 2018. FAMILY MEDICAL HISTORY: The patient's paternal and maternal grandparents are . Their medical histories are unknown. The patient's father is from motor vehicle accident. Her mother is . The mother's medical history is unknown. Ms. Knapp had 3 siblings, 1 brother and 2 sisters. One sister is . She was murdered. The second sister and brother are alive and healthy. Ms. Knapp has 3 children, 1 son and 2 daughters, all of whom are alive and healthy. SOCIAL HISTORY: Ms. Knapp is . 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 The patient does not report current or prior tobacco, alcohol, or recreational drug use. HOME MEDICATIONS: Reviewed. Please see the list of home medications available in the electronic medical record. HOSPITAL MEDICATIONS: Reviewed. Please see the list of hospital medications available in the electronic medical records. ALLERGIES: TRAMADOL, MORPHINE, METFORMIN. NO KNOWN FOOD ALLERGIES. NO KNOWN ALLERGIES TO LATEX. NO KNOWN ALLERGIES TO IODINE OR OTHER CONTRAST MATERIALS. PHYSICAL EXAMINATION VITAL SIGNS: Height 61 inches, weight 180 pounds, BMI 20.5 kg per meter squared. Blood pressure 164/113 mmHg, pulse 74 beats per minute, respiratory rate 16, oxygen saturation 100% on 2 liters by nasal cannula. GENERAL: The patient is awake and alert, does not appear distressed. HEENT: Normocephalic, atraumatic. Pupils are equal, round, and sluggishly reactive to light. Moist mucous membranes. NECK: Supple. No appreciable thyromegaly. No appreciable carotid bruits. CARDIOVASCULAR: S1, S2, regular rate and rhythm. No murmurs, rubs, or gallops. RESPIRATORY: Clear to auscultation bilaterally. No wheezes, rhonchi, or rales. EXTREMITIES: The skin is warm and dry. There is dependent edema in the left arm and hand. The posterior tibial and dorsalis pedis pulses are 1+ and symmetric. SKIN: No rashes or lesions. NEUROLOGIC Memory/Attention: The patient is awake and alert, oriented to person, place, time, and minimally to situation. Cranial Nerves: Cranial nerve I - not tested. Cranial nerve II, III, IV, and - Pupils are equal and round, react sluggishly to light (from 4 mm to 2 mm). Extraocular movements intact. No nystagmus. Cranial nerve V - Sensation is intact to light touch over the bilateral V1 through V3 distributions. Strength of the temporalis and masseter muscles is within normal limits. Cranial nerve VII - The face is asymmetric on the left as are all facial movements. There is moderate left central facial weakness. Cranial nerve VIII - Hearing is diminished to finger rub bilaterally. Cranial nerve IX, X - The soft palate elevates equally and symmetrically. Cranial nerve XI - Normal strength of the bilateral sternocleidomastoid and trapezius muscles. Cranial nerve XII - The tongue protrudes midline and moves symmetrically from side to side. Strength: Bulk is diffusely diminished. The patient is able to maintain both arms against gravity for more than 10 seconds each with drift in the left arm. She is able to maintain both legs against gravity for more than 5 seconds each without drift. Strength is grossly 4/5 in the left arm and left leg. Tone is increased in the left arm and left leg. DTRs: Deep tendon reflexes are 3+ at the left triceps, biceps, and brachioradialis. Deep tendon reflexes are 2+ at the right triceps, biceps, and brachioradialis. Deep tendon reflexes are 2+ at the left patella, 1+ at the right patella. Deep tendon reflexes are absent and symmetric at the Achilles. Plantar responses are flexor bilaterally. Sensation: Sensation is intact to light touch over both arms and both legs. Cerebellar: Deferred. Gait: Deferred. Speech: Spontaneous speech is moderately dysarthric without aphasia. Repetition is intact. Involuntary Movements: None. Pronator Drift: As per motor exam. LABORATORY DATA: The most recent comprehensive metabolic panel is significant for hypokalemia with potassium of 2.6, a chloride of 110, a carbon dioxide of 20, an estimated GFR of 56, a calcium of 7.6, a total protein of 4.0, an albumin of 2.0, and a globulin of 2.0. Serum glucoses have ranged from 109 to 228 in the last 24 hours. The B-natriuretic peptide drawn on November 12, 2018 was 219.8. The most recent CBC with differential and platelets, collected on November 11, 2018, reveals a white blood cell count of 6.69 with a left shift with 85.9% neutrophils, 9.7% lymphocytes, 3.7% monocytes, 0.0% eosinophils, and 0.1% basophils. The hemoglobin and hematocrit are 10.2 and 30.3, respectively. The platelet count is 182. Most recent urinalysis, collected on November 08, 2018, reveals slightly cloudy urine with trace protein, trace blood, trace leukocyte esterase, 6 to 10 white blood cells, and many urine bacteria. A urine culture, collected on November 07, 2018, grew Enterobacter cloacae, Klebsiella oxytoca, and Enterococcus faecalis. Blood cultures collected on November 07, 2018 revealed no growth after 5 days. A urine culture collected on November 08, 2018 revealed no growth after 36 to 48 hours. Stool occult blood was negative on November 12, 2018. C. difficile toxin A and B is pending. DIAGNOSTIC STUDIES: Chest x-ray, November 07, 2018: No acute cardiopulmonary disease. CT of the abdomen pelvis, November 07, 2018: 1. Fecal impaction. No evidence of stercoral proctitis. Moderate amount of stool throughout the large bowel consistent with constipation. No bowel obstruction. 2. Steatosis. 3. Hiatal hernia. Stable periampullary duodenal diverticulum. 4. Stable bilateral adrenal hyperplasia. Abdomen x-ray, November 09, 2018: Nonobstructive bowel gas pattern. CT of the abdomen and pelvis, November 09, 2018: 1. No definite acute abnormality on noncontrast evaluation. 2. Moderate stool burden with decreased rectal fecal loading from prior. CT of the brain without contrast, November 12, 2018: On my review, there is no evidence of recent large territorial ischemia, hemorrhage, mass, or mass effect. There are persistent left greater than right middle cerebellar pedicle/lateral pj hypodensity/scoliosis without associated mass effect, sequela from remote insult. There is diffuse cerebral atrophy with compensatory dilatation of the ventricles. There are findings compatible with ctcc-iz-kgyddzde chronic small vessel ischemic disease. Ms. Knapp is a 73-year-old right hand dominant woman with an extensive past medical history, admitted to [facility] on November 07, 2017 with urosepsis, acute renal insufficiency, nonsustained ventricular tachycardia, and bowel impaction. On November 12, 2018, the patient was noted to have an unsteady gait with swing backwards while ambulating with physical therapy. The patient's daughter was concerned, Ms. Knapp may have experienced another stroke, so a neurology consultation was requested. Patient has undergone a thorough neurological examination with findings detailed above. The patient's laboratory data and other diagnostic studies have been reviewed and are documented above. The patient's current neurological examination is stable when compared to prior neurological examination in late September 2018. In my opinion, the patient has experienced recrudescence of prior deficits secondary to underlying infection with sepsis, acute renal insufficiency, etc. Continue treatment of the aforementioned is recommended. Ms. Knapp should continue all current medications for stroke prophylaxis. Thank you for this consultation. There are no other recommendations from the neurology service at this time. Please call again with any questions or concerns. TIME SPENT: 70 minutes. Job#: [id number] AKU MTDD
--- NOTE | 2018-11-13 15:56 | Progress Note ---
DATE: November 13, 2018 CARDIOLOGY PROGRESS NOTE: SUBJECTIVE: No major events overnight. No more ventricular tachycardia episodes. OBJECTIVE VITAL SIGNS: Temperature 98.8, pulse 83, respiratory rate 16, blood pressure 142/64, satting 96% on 2 liters. GENERAL: Chronically ill-appearing elderly woman, no acute distress. Awake and alert. LUNGS: Clear to auscultation bilaterally. Decreased breath sounds at the bases. CARDIOVASCULAR: Regular rate and rhythm. No murmurs, rubs, or gallops. ABDOMEN: Soft, nontender, nondistended. NEURO AND PSYCH: Alert and oriented to person, place, and time. Normal affect. CARDIOVASCULAR MEDICATIONS: Reviewed. LABORATORY DATA: Reviewed. TELEMETRY DATA: Shows normal sinus rhythm. ASSESSMENT AND PLAN 1. Nonsustained ventricular tachycardia and premature ventricular contractions. 2. Abdominal pain. 3. Nausea and vomiting. 4. Cexdh-dd-vgooqda kidney injury, improved. 5. History of congestive heart failure. 6. Hypertension. 7. Hyperlipidemia. 8. Cerebrovascular accident. RECOMMENDATIONS: Echocardiogram showed normal LV systolic function and grade 2 diastolic dysfunction. Continue current cardiovascular medicines. We will monitor on telemetry. Replete electrolytes to keep potassium above 4.0 to avoid nonsustained VT. Blood pressure is improved with addition of lisinopril. Thank you for this consult. We will continue to follow. Job#: [id number] MADDISON
[2018-11-13] MEDS: ROPINIROLE HCL 0.25 MG TAB PO SCH (21:40)
[2018-11-13] MEDS: ATORVASTATIN 40 MG TAB PO SCH (21:40)
[2018-11-14] VITALS (16 sets, daily range): BP systolic 121–158; BP diastolic 42–64
[2018-11-14] MEDS: PANTOPRAZOLE 40 MG 10ML VIAL IV SCH ×2 (00:30→12:18)
[2018-11-14 04:47] LABS: BASOPHILS % 0.2 % (0.0-1.0); EOSINOPHILS % 0.5 % (0.0-6.0); HEMOGLOBIN 7.7 g/dL (12.0-16.0); LYMPHOCYTES # (AUTO) 1.8 (1.0-3.2); LYMPHOCYTES % 27.6 % (18.0-39.1); MEAN CORPUSCULAR HEMOGLOBIN 31.7 pg (28-32); MEAN CORPUSCULAR HGB CONC 34.4 g/dL (31-35); MEAN CORPUSCULAR VOLUME 92.2 fL (81-99); MONOCYTES # (AUTO) 0.6 (0.2-0.8); MONOCYTES % 8.5 % (4.4-11.3); NEUTROPHILS # (AUTO) 4.1 (2.1-6.9); NEUTROPHILS % 62.9 % (38.7-80.0); PLATELET COUNT 134 x10e3/uL (140-360); RED BLOOD COUNT 2.43 x10e6/uL (3.6-5.1); RED CELL DISTRIBUTION WIDTH 14.8 % (11.7-14.4)
[2018-11-14 04:53] LABS: HEMATOCRIT 22.4 % (34.2-44.1)
[2018-11-14 05:06] LABS: ALANINE AMINOTRANSFERASE 12 IU/L (0-55); ALBUMIN 1.9 g/dL (3.5-5.0); ALKALINE PHOSPHATASE 44 IU/L (40-150); BLOOD UREA NITROGEN 7 mg/dL (7-26); BUN/CREATININE RATIO 8 (6-25); CALCIUM 7.6 mg/dL (8.4-10.2); CARBON DIOXIDE 21 mmol/L (22-29); CHLORIDE 110 mmol/L (98-107); CREATININE, SERUM 0.86 mg/dL (0.57-1.11); EST GLOMERULAR FILTRATION RATE > 60 ML/MIN (60-); GLUCOSE 81 mg/dL (74-118); SODIUM 137 mmol/L (136-145)
[2018-11-14] MEDS: METOCLOPRAMIDE 10MG/2ML VIAL 15 MG in SODIUM CHLORIDE 0.9% 50ML 50 ML IV SCH ×3 (05:55→18:14)
[2018-11-14] MEDS ORDERED: MAGNESIUM SULFATE 2GM/50ML 50 ML IV ONE (07:00)
[2018-11-14] MEDS: INSULIN LISPRO 100 UNIT/1 ML 3ML VIAL SQ SCH ×4 (07:30→21:00)
--- NOTE | 2018-11-14 07:50 | NUR ---
Patient received asleep and awakened for breakfast and asessment. Respirations are even and unlabored. Denies any pain or discomfort. V/S are stable.
[2018-11-14] MEDS: LUBIPROSTONE 24 MCG CAP PO SCH ×2 (08:00→17:00)
--- NOTE | 2018-11-14 08:05 | NUR ---
Ultrasound here at bedside here to perform doppler of left upper extremity.
--- NOTE | 2018-11-14 08:15 | NUR ---
Daughter here at bedside.
[2018-11-14] MEDS: FUROSEMIDE INJ 10 MG/ML 2 ML VIAL IV SCH (08:52)
[2018-11-14] MEDS: HYDRALAZINE HCL 25 MG TAB PO SCH ×2 (08:54→17:00)
[2018-11-14] MEDS: POTASSIUM CHLORIDE 20 MEQ TAB CR PO SCH (08:55)
[2018-11-14] MEDS: HYDROCORTISONE 10 MG TAB PO SCH (08:55)
[2018-11-14] MEDS: MEMANTINE 10 MG TAB PO SCH (08:56)
[2018-11-14] MEDS: CLOPIDOGREL BISULFATE 75 MG TAB PO SCH (08:57)
[2018-11-14] MEDS: AMLODIPINE BESYLATE 10 MG TAB PO SCH (08:57)
[2018-11-14] MEDS: METHYLPHENIDATE HCL 10 MG TAB PO SCH (08:58)
[2018-11-14] MEDS: LISINOPRIL 20 MG TAB PO SCH (08:58)
[2018-11-14] MEDS: FLUOXETINE HCL 20 MG CAP PO SCH (08:58)
[2018-11-14] MEDS: ENOXAPARIN SOD INJ 40 MG/0.4 ML SYR SC SCH (08:59)
[2018-11-14] MEDS: METOPROLOL SUCCINATE 50 MG TAB XL PO SCH (08:59)
--- NOTE | 2018-11-14 10:00 | NUR ---
Patient ate only 3 bites of cream of wheat, 1/2 sausage biscuit with gravy, and all of her orange juice and 1/2 glass of water and tolerated well. She was sitting up in 90 degree position. No coughing or tearing of the eyes noted. Refused her eggs. Denies any nausea and no vomiting. She states that her throat is sore and I will notify MD when he rounds.
--- NOTE | 2018-11-14 10:00 | NUR ---
Pataient ate 2-3 bites of cream of wheat, 1/2 of her sausage & biscuit with gravy and all of her orange juice and 1/2 glass of water and tolerated well. She refused her eggs. Patient was sitting up in 90 degreee position and no coughing, sneezing or tearing up of the eyes noted. Patient states that she is not hungry.
--- NOTE | 2018-11-14 12:35 | NUR ---
Dr. Jones here to see patient. Daughter at bedside and feeding patient. Patient was noted to start coughing after eating some soup. HOB was not at 90 degrees and then adjusted to [address] Jones informed and swallow evaluation by Speech pathology ordered.
[2018-11-14 13:55] LABS: HEMOGLOBIN 7.7 g/dL (12.0-16.0)
[2018-11-14] MEDS: LEVOFLOXACIN 500MG/D5W 100ML 100 ML IV SCH (14:00)
[2018-11-14 14:03] LABS: HEMATOCRIT 22.5 % (34.2-44.1)
--- NOTE | 2018-11-14 14:15 | NUR ---
Hgb of 7.7 and Hct-22.5 (Repeat draw) called to Dr. Jones and new orders received to transfuse one Unit of PRBC to be followed by Lasix 20mg IV post transfusion. Labs in am.
[2018-11-14] MEDS: MEROPENEM 500MG/ NS 50ML 50 ML IV SCH ×2 (14:30→22:50)
[2018-11-14] MEDS ORDERED: SODIUM CHLORIDE 0.9% 250ML 250 ML IV NR (14:30)
[2018-11-14] MEDS ORDERED: FUROSEMIDE INJ 10 MG/ML 2 ML VIAL IV ONE (14:45)
--- NOTE | 2018-11-14 14:45 | NUR ---
CALL RECEIVED FROM NURSE FOR LTAC EVAL PER DR. GOLDMAN. WENT TO PT'S BEDSIDE, BUT DTR / ITZEL HAD LEFT TO RUN ERRANDS. CALL WAS MADE TO ITZEL @ [phone]. STATES SHE HAD DISCUSSED [facility] [address] W DR. GOLDMAN AND WOULD LIKE TO SEND HER THERE, BUT NOT UNTIL DR. GRACE AGREED WITH THE PLAN. STATES SHE DID NOT THINK THE MOVE WOULD BE TODAY. VERIFIED INFO WITH SHREE, BEDSIDE NURSE. AGREED TO WAIT UNTIL TOMORROW TO BEGIN THE EVAL. CM WILL F/U TOMORROW
--- NOTE | 2018-11-14 14:50 | NUR ---
DAUGHTER STATES THAT SHE WOULD LIKE TO SPEAK TO DR. GRACE TOMORROW REGARDING LTAC PLANS AND NOT WANTING TO MAKE PROCEED FORWARD UNTIL SHE SPEAKS TO HIM FIRST. JOON RN - ACOUSTICS TEACHER AWARE AND HAS SPOKEN TO DAUGHTER WELL
[2018-11-14] MEDS ORDERED: SODIUM CHLORIDE 0.9% 250ML 250 ML ONE (17:40)
--- NOTE | 2018-11-14 18:00 | NUR ---
FIRST UNIT OF PRBC BEGUN AND INFUSING WELL WITHOUT INCIDENT.
[2018-11-14] MEDS: ROPINIROLE HCL 0.25 MG TAB PO SCH (20:31)
[2018-11-14] MEDS: ATORVASTATIN 40 MG TAB PO SCH (20:31)
[2018-11-14 23:08] LABS: IRON 68 ug/dL (50-170); TRANSFERRIN < 70 mg/dL (180-382)
[2018-11-14 23:13] LABS: FOLATE 9.5 ng/mL (7.0-15.4)
[2018-11-14 23:28] LABS: FERRITIN 215.88 ng/mL (4.63-204.00)
[2018-11-15] VITALS (10 sets, daily range): BP systolic 130–176; BP diastolic 49–63
[2018-11-15] MEDS: METOCLOPRAMIDE 10MG/2ML VIAL 15 MG in SODIUM CHLORIDE 0.9% 50ML 50 ML IV SCH ×5 (00:30→23:58)
[2018-11-15 04:31] LABS: BASOPHILS % 0.2 % (0.0-1.0); EOSINOPHILS # (AUTO) 0.1 (0.0-0.4); EOSINOPHILS % 0.8 % (0.0-6.0); HEMATOCRIT 26.2 % (34.2-44.1); HEMOGLOBIN 9.2 g/dL (12.0-16.0); LYMPHOCYTES # (AUTO) 1.5 (1.0-3.2); MEAN CORPUSCULAR HEMOGLOBIN 31.1 pg (28-32); MEAN CORPUSCULAR HGB CONC 35.1 g/dL (31-35); MEAN CORPUSCULAR VOLUME 88.5 fL (81-99); MONOCYTES # (AUTO) 0.4 (0.2-0.8); MONOCYTES % 6.2 % (4.4-11.3); NEUTROPHILS # (AUTO) 4.7 (2.1-6.9); NEUTROPHILS % 70.5 % (38.7-80.0); PLATELET COUNT 91 x10e3/uL (140-360); RED BLOOD COUNT 2.96 x10e6/uL (3.6-5.1); RED CELL DISTRIBUTION WIDTH 16.1 % (11.7-14.4)
[2018-11-15 04:54] LABS: ALANINE AMINOTRANSFERASE 15 IU/L (0-55); ALKALINE PHOSPHATASE 49 IU/L (40-150); ANION GAP 11.3 mmol/L (8-16); BLOOD UREA NITROGEN 10 mg/dL (7-26); BUN/CREATININE RATIO 12 (6-25); CALCIUM 7.6 mg/dL (8.4-10.2); CARBON DIOXIDE 24 mmol/L (22-29); CHLORIDE 103 mmol/L (98-107); CREATININE, SERUM 0.86 mg/dL (0.57-1.11); EST GLOMERULAR FILTRATION RATE > 60 ML/MIN (60-); GLUCOSE 84 mg/dL (74-118); POTASSIUM 3.3 mmol/L (3.5-5.1); SODIUM 135 mmol/L (136-145)
[2018-11-15] MEDS: MEROPENEM 500MG/ NS 50ML 50 ML IV SCH (05:00)
[2018-11-15 05:15] LABS: FERRITIN 549.06 ng/mL (4.63-204.00)
--- NOTE | 2018-11-15 06:44 | NUR ---
Paged Dr. Power regarding this AM's labs. Awaiting return call.
[2018-11-15] MEDS ORDERED: POTASSIUM CHLORIDE 20MEQ/15ML UDC NG NR ×2 (07:15→09:00)
[2018-11-15] MEDS: INSULIN LISPRO 100 UNIT/1 ML 3ML VIAL SQ SCH ×4 (07:30→20:52)
[2018-11-15] MEDS: LUBIPROSTONE 24 MCG CAP PO SCH ×2 (08:00→17:00)
[2018-11-15] MEDS: HYDRALAZINE HCL 25 MG TAB PO SCH ×2 (09:00→17:00)
[2018-11-15] MEDS: MEMANTINE 10 MG TAB PO SCH (09:00)
[2018-11-15] MEDS: LISINOPRIL 20 MG TAB PO SCH (09:00)
[2018-11-15] MEDS: POTASSIUM CHLORIDE 20 MEQ TAB CR PO SCH (09:00)
[2018-11-15] MEDS: FUROSEMIDE INJ 10 MG/ML 2 ML VIAL IV SCH (09:00)
[2018-11-15] MEDS: CLOPIDOGREL BISULFATE 75 MG TAB PO SCH (09:00)
[2018-11-15] MEDS: FLUOXETINE HCL 20 MG CAP PO SCH (09:00)
[2018-11-15] MEDS: METOPROLOL SUCCINATE 50 MG TAB XL PO SCH (09:00)
[2018-11-15] MEDS: AMLODIPINE BESYLATE 10 MG TAB PO SCH (09:00)
[2018-11-15] MEDS: METHYLPHENIDATE HCL 10 MG TAB PO SCH (09:00)
[2018-11-15] MEDS ORDERED: POTASSIUM CHLORIDE 20MEQ/100ML 100 ML IV ONE (09:15)
[2018-11-15] MEDS: PANTOPRAZOLE 40 MG 10ML VIAL IV SCH ×2 (11:45→23:58)
--- NOTE | 2018-11-15 13:22 | Progress Note ---
DATE: November 15, 2018 INTERNAL MEDICINE PROGRESS NOTE SUBJECTIVE: This is a 73-year-old white female with past medical history positive for diabetes, hypertension, cerebellar CVA in the past. The patient is having difficulty swallowing. She failed the swallowing test. She is going to need a PEG tube. She also had painful swallowing. She has oral thrush in her mouth. We are going to start her on IV Diflucan. PHYSICAL EXAMINATION VITAL SIGNS: Blood pressure 145/61. Temperature 98.9. Heart rate 72 per minute. Respiratory rate 14 per minute. Oxygen saturation 100%. HEART: Regular rhythm. Normal S1, S2 sounds. LUNGS: Clear bilaterally. ABDOMEN: Soft. BLOOD WORK: We have BMP with sodium 135, potassium 3.3, chloride 103, CO2 24, BUN 10, creatinine 0.86, glucose 84. CBC: White blood count 6.64; hemoglobin 9.2; hematocrit 26.2; platelet count 91,000. PT 12.4, PTT 17.6, INR 0.85. AST 16, ALT 15, total bilirubin 2.1, alkaline phosphatase 49. FINAL IMPRESSION 1. Aspiration pneumonia. 2. Dysphagia. 3. Ekrer-uv-lgkuxox anemia. 4. Acute renal insufficiency which is resolved. 5. Uncontrolled hypertension. 6. Mild dementia. 7. History of cerebellar cerebrovascular accident in the past. PLAN OF TREATMENT: Continue Levaquin 500 mg IV once a day, meropenem 500 mg IV q.8 h. Continue metoclopramide 50 mg IV q.6 h., Zofran 4 mg IV q.4 h. as needed. Amlodipine, fluoxetine, Requip and lisinopril have to be placed on hold because the patient cannot eat. We are going to consult Dr. Geovany Wright of gastroenterology for the PEG tube placement. We are going to consult Dr. Nilda Barron for anemia workup. Continue promethazine 12.5 mg IV q.6 h. as needed for vomiting, labetalol 10 mg IV q.6 h. as needed for hypertension. She is on Lipitor 80 mg daily. Monitor blood sugar q.6 h. Potassium has been replaced. We are going to recheck potassium and magnesium levels today. As I said, all the oral medications are going to be placed on hold. Matty is going to do evaluation for possible transfer once all the workup is completed and once the PEG tube is placed. Job#: [id number] MH
[2018-11-15] MEDS: LEVOFLOXACIN 500MG/D5W 100ML 100 ML IV SCH (14:23)
[2018-11-15] MEDS: FLUCONAZOLE 200 MG/100 ML 100 ML IV SCH (14:23)
--- NOTE | 2018-11-15 15:24 | NUR ---
called faizan lopez's office to eryn kumari regarding new consult
--- NOTE | 2018-11-15 15:27 | NUR ---
faxed facesheet to Dr. Spicer's office
--- NOTE | 2018-11-15 16:33 | Diagnostic Imaging Report ---
MRI BRAIN WO HISTORY: Neurological changes, unsteady gait COMPARISON: Head CT 11/12/2018, MRI of the brain 09/27/2018 TECHNIQUE: Sagittal T2, axial T2, axial T1, axial T2/FLAIR, axial gradient echo (or susceptibility weighted), coronal T2/FLAIR, and axial diffusion weighted MR images of the brain were obtained without contrast. DISCUSSION: Scalp/bone marrow: Unremarkable. Brain sulci: Mildly prominent. Ventricles: Mild compensatory dilatation. Extra-axial spaces: No masses or fluid collections. Parenchyma: Previously seen diffusion restricting abnormalities in the left brachium pontis/left lateral pj has evolved into an old lacunar insult. Similar, smaller old lacunar infarct in the right brachium pontis has not significantly changed. Associated T2/FLAIR hyperintensity in the pj, bilateral brachium pontis, and bilateral cerebellar deep white matter has slightly increased. Old small left posterior cerebellar cortical infarct is unchanged. Otherwise, no diffusion restricting abnormalities are seen. No suspicious areas of focal magnetic susceptibility are seen on GRE images. Scattered T2/FLAIR hyperintense foci throughout the supratentorial white matter are likely chronic microvascular ischemic changes. Vessels: Normal flow voids in major arteries and veins. Sellar/Suprasellar region: No abnormalities. Craniocervical junction: No abnormalities. Incidental findings: T2 hyperintense left mastoid effusion is present. IMPRESSION: 1. No evidence for acute ischemia. 2. Previously seen focal area of left brachium pontis/left lateral pj cytotoxic edema has evolved into an old lacunar insult. Similar, smaller old lacunar insult in the right brachium pontis is unchanged. Associated, slightly increased T2/FLAIR hyperintensity in the pj, bilateral brachium pontis, and bilateral cerebellar white matter may be due to increased local vasogenic edema and/or gliosis. These findings may be related to an evolving demyelinating process, rhomboencephalitis, or vasculitic process. 3. Mild generalized cerebral volume loss. Mild supratentorial chronic microvascular ischemic change. 4. Old small left posterior cerebellar cortical infarct. Signed by: Dr. Maikol Bhakta M.D. on 11/15/2018 2:46 PM
[2018-11-15] MEDS ORDERED: ENOXAPARIN SOD INJ 40 MG/0.4 ML SYR SC SCH (17:00)
--- NOTE | 2018-11-15 17:03 | NUR ---
WOUND CARE NURSE CONSULTATION. 73 YEAR OLD FEMALE ADMITTED TO [facility] WITH DX OF ABDOMINAL PAIN, NAUSEA, VOMIT, AND HEMATURIA. HEAD TO TOE SKIN ASSESSMENT PERFORMED TODAY. PT PRESENTS WITH PERIRECTAL EXCORIATION. THERE ARE NO OTHER AREAS OF CONCERN NOTED AT THIS TIME. LABS: WBC:6.64 HGB: 9.2 HCT: 26.2 NEUTROPHILS: 70.5 GLUCOSE: 84 RECOMMENDATIONS: KEEP PERIRECTAL DRY AND CLEAN APPLY LANTISEPTIC TO PERIRECTAL AREA BID. TURN PT EVERY 2 HOURS AND PRN PROVIDE PT WITH BILATERAL HEEL PROTECTORS AND CONTINUE WITH PILLOW SUSPENSIONS. CONTINUE WITH ALTERNATING LOW AIR LOSS MATTRESS. THANKS FOR THIS CONSULTATION. Addendum: 11/15/18 at 1709 by Laverne Frey RN Amended: Links added.
[2018-11-15] MEDS ORDERED: LANOLIN 4.5 OZ OINT TP SCH (17:15)
[2018-11-15] MEDS ORDERED: LANOLIN 4.5 OZ OINT TP PRN (17:30)
[2018-11-15] MEDS: PIPER-TAZ 3.375 GM 50 ML IV SCH ×2 (18:08→23:58)
[2018-11-15 18:22] LABS: MAGNESIUM 1.5 MG/DL (1.3-2.1); POTASSIUM 3.3 mmol/L (3.5-5.1)
[2018-11-15] MEDS: HYDRALAZINE HCL 20 MG/ML VIAL IV PRN (18:32)
--- NOTE | 2018-11-15 19:00 | NUR ---
Report received. Assumed care. Assessment done. See interventions.
[2018-11-15] MEDS: ATORVASTATIN 40 MG TAB PO SCH (20:47)
[2018-11-15] MEDS: METHYLPREDNISOLONE SOD SUCC 40 MG/ML VIAL 1ML IV SCH (20:47)
[2018-11-15] MEDS: ROPINIROLE HCL 0.25 MG TAB PO SCH (20:47)
--- NOTE | 2018-11-15 22:26 | Diagnostic Imaging Report ---
EXAM: CHEST SINGLE (PORTABLE), AP 1 view INDICATION: Pneumonia COMPARISON: AP view of the chest November 13 2018 FINDINGS: LINES/TUBES: Left approach PICC with tip terminating at the expected location of the atriocaval junction. LUNGS: Left lower lobe subsegmental atelectasis. PLEURA: Trace left pleural effusion. HEART AND MEDIASTINUM: Normal size and contour. BONES AND SOFT TISSUES: Surgical clips right lower neck. IMPRESSION: Trace left pleural effusion and adjacent subsegmental atelectasis. Signed by: Dr. Kenia Arias M.D. on 11/15/2018 10:22 PM
[2018-11-16] VITALS (16 sets, daily range): BP systolic 129–166; BP diastolic 44–55
--- NOTE | 2018-11-16 05:57 | NUR ---
Complete bed bath given. Bed linens changed.
[2018-11-16] MEDS: METOCLOPRAMIDE 10MG/2ML VIAL 15 MG in SODIUM CHLORIDE 0.9% 50ML 50 ML IV SCH ×3 (06:33→19:09)
[2018-11-16] MEDS: PIPER-TAZ 3.375 GM 50 ML IV SCH ×3 (06:33→18:13)
--- NOTE | 2018-11-16 07:00 | NUR ---
Rec'd pt from MANUEL[facility] Cotto in stable condition. Dr. De Wright recently assessed pt. pt to get PEG tube placed today. consent signed. will continue to monitor
[2018-11-16] MEDS: INSULIN LISPRO 100 UNIT/1 ML 3ML VIAL SQ SCH ×4 (07:30→21:00)
[2018-11-16] MEDS: LUBIPROSTONE 24 MCG CAP PO SCH ×2 (08:00→16:51)
[2018-11-16] MEDS: HYDRALAZINE HCL 25 MG TAB PO SCH ×2 (08:50→16:53)
[2018-11-16] MEDS: MEMANTINE 10 MG TAB PO SCH (08:51)
[2018-11-16] MEDS: POTASSIUM CHLORIDE 20 MEQ TAB CR PO SCH (08:51)
[2018-11-16] MEDS: AMLODIPINE BESYLATE 10 MG TAB PO SCH (08:51)
[2018-11-16] MEDS: LISINOPRIL 20 MG TAB PO SCH (08:51)
[2018-11-16] MEDS: CLOPIDOGREL BISULFATE 75 MG TAB PO SCH (08:51)
[2018-11-16] MEDS: FLUOXETINE HCL 20 MG CAP PO SCH (08:52)
[2018-11-16] MEDS: METOPROLOL SUCCINATE 50 MG TAB XL PO SCH (08:52)
[2018-11-16] MEDS: FUROSEMIDE INJ 10 MG/ML 2 ML VIAL IV SCH (09:29)
[2018-11-16] MEDS: METHYLPREDNISOLONE SOD SUCC 40 MG/ML VIAL 1ML IV SCH ×2 (09:29→21:35)
[2018-11-16] MEDS: PANTOPRAZOLE 40 MG 10ML VIAL IV SCH (11:07)
--- NOTE | 2018-11-16 12:12 | NUR ---
ST NOTE: Pt awaiting peg tube placement, will continue to follow. Handoff to MANUELA Mcclain
[2018-11-16] MEDS ORDERED: SODIUM CHLORIDE 0.9% 250ML 250 ML ONE ×3 (12:32→17:58)
[2018-11-16] MEDS: FLUCONAZOLE 200 MG/100 ML 100 ML IV SCH (12:48)
--- NOTE | 2018-11-16 13:23 | Progress Note ---
DATE: November 16, 2018 CARDIOLOGY PROGRESS NOTE SUBJECTIVE: Patient is mildly lethargic. No apparent distress. No events. OBJECTIVE VITAL SIGNS: Temperature is 97, heart rate is 69, respirations are 15, blood pressure is 158/50, oxygen saturation 100% on room air. GENERAL: She is a chronically ill-appearing woman in no apparent distress. CARDIOVASCULAR: Regular rate and rhythm. LUNGS: Diminished breath sounds. ABDOMEN: Soft and nontender. EXTREMITIES: No edema. CARDIOVASCULAR MEDICATIONS: Reviewed. LABORATORY DATA: Hemoglobin 9.2, platelets are 91,000. Potassium 3.3. Telemetry monitoring reveals normal sinus rhythm. ASSESSMENT AND RECOMMENDATIONS 1. Nonsustained ventricular tachycardia. 2. Premature ventricular complexes. 3. Nausea and vomiting. 4. Abdominal pain. 5. Syuxq-ee-ajsqvhv kidney injury, improved. 6. History congestive heart failure. 7. Hyperlipidemia. 8. Cerebrovascular accident. RECOMMENDATIONS: The patient has overall preserved left ventricular systolic function with grade 2 diastolic heart failure. Continue all current cardiovascular medications. Replace potassium to keep level greater than 4. Patient going for PEG tube placement today, and can start oral medications for blood pressure and rate control at that point in time. Job#: [id number] MARY ANN
--- NOTE | 2018-11-16 13:57 | NUR ---
Nutrition Intervention Note RD Recommendation(s) for Physician: -Rec continuous TF with Glucerna 1.2 @ 45mL/hr, providing 1296kcal, 65g protein, and 870mL H2O. -Rec free water flushes of 30mL q 4hr; additional water per MD discretion. -Monitor daily labs, check GI tolerance, replace low lytes -Obtain daily weight The patient meets criteria for MODERATE protein-calorie malnutrition. Plan of Care: RD following, monitoring for tolerance and adequacy, TF rec Nutrition reason for involvement: Follow up RD Assessment 11/16 - Chart reviewed. Pt was discussed during rounds. Per RN, pt seemed to deteriorate since yesterday. Pt was not able to eat anything by mouth. This morning, pt was pocketing pills inside her mouth. No complains of nausea or vomiting noted. LBM 11/15, soft brown stool. PEG placement and EGD are planned for today. RD communicated TF rec to MANUELA Talley once EN is feasible. Will continue to monitor and follow. 11/12 Chart reviewed. Pt was discussed during rounds. Per RN, pt had nausea and vomiting yesterday. Currently on full liquid diet but PO intake is poor (~30%). RN given ONS and will encourage PO intake. Currently on Lasix for swelling. Visited pt in the room. Pt reports her nausea is better. No vomiting episode today. Family and RN have been assisting with feeding but pt doesnt eat much. LBM 11/08. RN reports pt not chewing solid as well but family reports pt chewing ok if they cut up the foods. No swallowing difficulty noted. Will continue to monitor and follow. 11/08 Chart reviewed. Pt was discussed during rounds. 73yo F, who is admitted for abdominal pain, nausea and vomiting. CT abd/pel showed fecal impaction. MANUELA Osei states constipation has resolved. Visited pt in the room. Daughter on bedside to provide hx. Per daughter, pt has had ~10lbs weight loss since 07/2018; UBW ~120lbs. Pt has not been eating much for months. For lunch today, pt had <25% meal intake. Pt was given meds for nausea today. No other GI complains noted. No chewing or swallowing difficulty noted. Pt doesnt like Ensure but willing to try Glucerna. Communicated RD rec to RN. Will continue to monitor and follow. Principal Problems/Diagnoses: 1. Nonsustained ventricular tachycardia and frequent premature ventricular contractions. 2. Abdominal pain. 3. Nausea and vomiting. 4. Acute kidney injury versus chronic kidney disease. 5. Abnormal urinalysis suggestive of urinary tract infection. 6. Elevated lactate, now improved. PMH: hypertension, hyperlipidemia, diabetes mellitus, questionable history of congestive heart failure, and CVA x3 GI: abdomen flat, soft, non-tender, flatus present Skin: no pressure wound per wound care notes Labs: No lab since 11/15 (11/12) Glucose 197 H (11/08) K 3.3 L, Glucose 188 H, Ca 7.8 L Meds: protonix, solu-medrol, IV lasix, Ht: 61in Wt: 110lb 11/08, 108.38lb 11/12 BMI: 20.8kg/m2 IBW: 105lb Malnutrition Evaluation (11/08/2018) The patient meets criteria for MODERATE protein-calorie malnutrition. Energy intake: <75% of estimated energy requirements for >3 months Weight loss: >7.5% in 3 months (Chronic) Fat loss: Moderate somewhat hollow orbital region Muscle loss: Moderate temporal depression Supporting Evidence: Fluid accumulation: unable to evaluate Functional Status: no changes Nutrition Prescription (Diet Order): NPO Estimated Nutritional Needs: Calories: 1225 - 1470kcal (25-30kcal/kg/d) Weight used : Actual BW -49kg Protein : 49 74g (1-1.5g/kg/d) Weight used: Actual BW -49kg Diet Adequacy: Not meeting calorie needs, Not meeting protein needs Diet Education Needs Assessment: Diet education not indicated. 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 Goal: Patient will meet 75-100% of estimated needs by follow up Progress: N/A Interventions: Composition, Rate, Route Monitoring/Evaluation: Total energy intake, Total protein intake, Weight change, Formula/Solution Signed: Mamie Gutierres MS, RD, LD
[2018-11-16] MEDS: LEVOFLOXACIN 500MG/D5W 100ML 100 ML IV SCH (14:00)
--- NOTE | 2018-11-16 14:49 | NUR ---
DR GRACE SPOKE WITH PT'S DTR REGARDING LTAC EVAL SHE IS AGREEABLE PEG TODAY, CURRENTLY TO GRAVITY DRAINAGE PLAN TO START FEEDS IN AM CHOICE LETTER SIGNED FOR [facility] WITH [facility] NOTIFIED OF CONSULT MOT INITIATED AND PLACED IN [place]ITE ENVELOPE AT DESK PLAN TRANSFER TO [facility] TOMORROW
[2018-11-16] MEDS ORDERED: PROPOFOL IV EMULSION 10 MG/ML 20 ML VIAL ONE (16:59)
[2018-11-16] MEDS ORDERED: LIDOCAINE HCL 2% LOCAL INJ 5 ML SDV VIAL INJ ONE (16:59)
[2018-11-16] MEDS ORDERED: POTASSIUM CHLORIDE 20 MEQ TAB CR PO NR (18:31)
--- NOTE | 2018-11-16 20:30 | Progress Note ---
DATE: November 16, 2018 INTERNAL MEDICINE PROGRESS NOTE SUBJECTIVE: Patient is nonverbal. PHYSICAL EXAMINATION: VITAL SIGNS: Blood pressure 142/52, temperature 98 degrees, heart rate 75 per minute, respiratory rate 14 per minute, oxygen saturation is 100%. HEART: Shows regular rhythm. Normal S1 and S2 sounds. LUNGS: Clear bilaterally. ABDOMEN: Soft. EXTREMITIES: Showed 2+ edema in both arms. No evidence of any swelling in both lower extremities. LABS: On the BMP: Sodium 135, potassium 3.3, chloride 103, CO2 24, BUN 10, creatinine 0.86, glucose 84. On the CBC: White blood count 6.64, hemoglobin 9.2, hematocrit 26.2, platelet count 91,000. PT 12.4, INR 0.85, PTT 17.6. AST 16, ALT 15, total bilirubin 2.1, alkaline phosphatase 49. FINAL IMPRESSION: 1. Aspiration pneumonia. 2. Dysphagia, status post percutaneous endoscopic gastrostomy tube placement. 3. Pntql-xy-igfbilu anemia. 4. Acute renal insufficiency on chronic renal insufficiency. 5. Uncontrolled hypertension. 6. Sepsis. 7. Urinary tract infection. 8. 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 9. Physical deconditioning. PLAN OF TREATMENT: We are going to continue metoclopramide q.6h. IV, Levaquin 500 mg IV once a day, fluconazole 100 mg IV once a day. Continue Zosyn 3.375 g IV q.6h, D50 IV push as needed for hypoglycemia, Namenda 10 mg daily, Lipitor 80 mg daily whenever she is able to have medications through a PEG tube. Catapres patch 0.3 mg once a week, Hydralazine 50 mg twice a day. Once she got the feeding tube, able to take medication. Continue Zofran 4 mg IV q.4h. as needed, amlodipine 10 mg daily, fluoxetine 20 mg daily, hydralazine 20 mg IV push every 4 hours as needed for hypertension. We are going to increase the furosemide to 40 mg IV daily because of swelling in the upper extremities. Continue Protonix 40 mg IV twice a day, labetalol 10 mg IV q.4-6h. as needed for hypertension, metoprolol 50 mg daily, Amitiza 24 mcg p.o. twice a day, Promethazine 12.5 mg IV q.4-6h. as needed for vomiting, lisinopril 40 mg daily, Solu-Medrol 40 mg IV twice a day, Plavix 75 mg daily, Requip 0.25 mg daily. Continue monitoring blood sugar q.6h. Potassium chloride 20 mEq daily. Patient is going to be transferred to [facility] tomorrow. Job#: [id number]
[2018-11-16] MEDS: ATORVASTATIN 40 MG TAB PO SCH (21:00)
[2018-11-16] MEDS: ROPINIROLE HCL 0.25 MG TAB PO SCH (21:00)
[2018-11-17] VITALS (8 sets, daily range): BP systolic 129–165; BP diastolic 43–90
[2018-11-17] MEDS: PIPER-TAZ 3.375 GM 50 ML IV SCH ×4 (00:26→17:56)
[2018-11-17] MEDS: PANTOPRAZOLE 40 MG 10ML VIAL IV SCH ×2 (00:26→12:52)
[2018-11-17] MEDS: METOCLOPRAMIDE 10MG/2ML VIAL 15 MG in SODIUM CHLORIDE 0.9% 50ML 50 ML IV SCH ×4 (00:34→17:56)
--- NOTE | 2018-11-17 01:18 | Discharge Summary ---
MESSI ASHBY JOSE GRACE MD Job#: [id number] DELPHINE
--- NOTE | 2018-11-17 01:30 | Discharge Summary ---
HOSPITAL COURSE: A 73-year-old female with past medical history positive for CVA, hypertension, hyperlipidemia, diabetes, multiple strokes, admitted to [facility] due to urosepsis, acute renal failure, and nonsustained ventricular tachycardia. MRI of the head showed no significant changes. Patient was diagnosed with aspiration pneumonia. She had an episode of vomiting. She had a PEG tube placed because of unable to eat and also difficulty swallowing. Patient is on IV antibiotic. She is going to be transferred to [facility] for continuation of her IV antibiotic, optimization of the physical condition. She right now has a PEG tube where she is going to get most of the feeding. PHYSICAL EXAM: The heart shows regular rhythm, normal S1 and S2 sounds. Lungs are clear bilaterally. Abdomen soft. PEG tube in place. Extremities show 2+ edema in both upper extremities. FINAL IMPRESSIONS 1. Aspiration pneumonia. 2. Sepsis secondary to urinary tract infection. 3. Hypokalemia. 4. History of cerebrovascular accident. 5. Uncontrolled hypertension. 6. Dysphagia PLAN OF TREATMENT: Continue PEG tube feeding. Continue medications as already dictated in my prior progress notes. JOSE GRACE MD Job#: [id number]
--- NOTE | 2018-11-17 01:48 | NUR ---
DR Joss CERRATO ORDERED OK TO USE PEG TUBE AFTER 13:00 PM TODAY (11/17/18)
[2018-11-17 05:00] LABS: HEMATOCRIT 26.7 % (34.2-44.1); HEMOGLOBIN 9.1 g/dL (12.0-16.0); LYMPHOCYTES # (AUTO) 0.4 (1.0-3.2); LYMPHOCYTES % 5.9 % (18.0-39.1); MEAN CORPUSCULAR HEMOGLOBIN 30.2 pg (28-32); MEAN CORPUSCULAR HGB CONC 34.1 g/dL (31-35); MEAN CORPUSCULAR VOLUME 88.7 fL (81-99); MONOCYTES # (AUTO) 0.1 (0.2-0.8); MONOCYTES % 0.7 % (4.4-11.3); NEUTROPHILS # (AUTO) 6.4 (2.1-6.9); NEUTROPHILS % 92.8 % (38.7-80.0); PLATELET COUNT 138 x10e3/uL (140-360); RED BLOOD COUNT 3.01 x10e6/uL (3.6-5.1); RED CELL DISTRIBUTION WIDTH 15.4 % (11.7-14.4)
[2018-11-17 05:26] LABS: ANION GAP 23.6 mmol/L (8-16); BLOOD UREA NITROGEN 17 mg/dL (7-26); BUN/CREATININE RATIO 19 (6-25); CALCIUM 7.4 mg/dL (8.4-10.2); CARBON DIOXIDE 17 mmol/L (22-29); CHLORIDE 99 mmol/L (98-107); CREATININE, SERUM 0.89 mg/dL (0.57-1.11); EST GLOMERULAR FILTRATION RATE > 60 ML/MIN (60-); GLUCOSE 211 mg/dL (74-118); POTASSIUM 3.6 mmol/L (3.5-5.1); SODIUM 136 mmol/L (136-145)
[2018-11-17] MEDS ORDERED: METOCLOPRAMIDE HCL 10 MG/2ML VIAL ONE (06:32)
[2018-11-17] MEDS ORDERED: SODIUM CHLORIDE 0.9% 50ML 50 ML ONE (06:34)
[2018-11-17] MEDS: INSULIN LISPRO 100 UNIT/1 ML 3ML VIAL SQ SCH ×2 (07:30→13:07)
[2018-11-17] MEDS: LUBIPROSTONE 24 MCG CAP PO SCH ×2 (08:00→17:00)
[2018-11-17] MEDS: LISINOPRIL 20 MG TAB PO SCH (09:00)
[2018-11-17] MEDS: AMLODIPINE BESYLATE 10 MG TAB PO SCH (09:00)
[2018-11-17] MEDS: HYDRALAZINE HCL 25 MG TAB PO SCH ×2 (09:00→16:12)
[2018-11-17] MEDS ORDERED: FUROSEMIDE INJ 10 MG/ML 4 ML VIAL IV SCH (09:00)
[2018-11-17] MEDS: METOPROLOL SUCCINATE 50 MG TAB XL PO SCH ×2 (09:00→16:11)
[2018-11-17] MEDS: METHYLPREDNISOLONE SOD SUCC 40 MG/ML VIAL 1ML IV SCH (09:32)
[2018-11-17] MEDS: LABETALOL HCL 5 MG/ML 20ML VIAL IV PRN (09:45)
--- NOTE | 2018-11-17 12:28 | Consultation ---
DATE OF CONSULTATION: November 15, 2018 CONSULTATION TO: Dr. Power Ms. Knapp is a 73-year-old female who has been referred to me for evaluation of recurrent anemia. Most of the history has been obtained by my personal communication with the daughter. The patient is slightly confused. The patient has been brought in for recurrent nausea and vomiting. The patient also has had recurrent blood transfusions as per the daughter. SOCIAL HISTORY: Noncontributory. FAMILY HISTORY: Noncontributory. ALLERGIES 1. METFORMIN. 2. TRAMADOL. 3. MORPHINE. MEDICATIONS AT THIS TIME 1. Reglan. 2. Levaquin. 3. Zosyn. 4. Labetalol. 5. Bisacodyl. 6. Memantine. 7. Amlodipine. 8. Fluoxetine. 9. Metoprolol. 10. Diazepam. 11. Plavix. 12. Hydralazine. 13. Lasix. 14. Protonix. 15. Diazepam. 16. Methylphenidate. 17. Clonidine. 18. Methylprednisolone. 19. Potassium chloride. 20. Insulin. 21. Atorvastatin. 22. Ropinirole. 23. Promethazine. 24. Lisinopril. 25. Lovenox. REVIEW OF SYSTEMS HEENT: Normal. CARDIAC: History of hypertension, hyperlipidemia and peripheral arterial disease. RESPIRATORY: Normal. GI: Persistent nausea and vomiting. : Being treated for enterobacter, klebsiella and enterococcus in the urine. MUSCULOSKELETAL: Bed confined. NEUROENDOCRINE: History of diabetes mellitus. HONING MACHINE OPERATOR: History of dementia. PHYSICAL EXAMINATION GENERAL: Moderately built female. Anemic. No adenopathy. HEART: Within normal limits. LUNGS: Clear. ABDOMEN: Obese. RECTAL: Exam deferred. CENTRAL NERVOUS SYSTEM: Could not be examined. The patient does have a Armas catheter. LABS: Hemoglobin 9.2; hematocrit 26.2 with normal indices; white count 6640; platelets of 91,000. BUN 10, creatinine 0.8. Sodium 135, potassium 3.3, chloride 73, CO2 24. Glucose 84. Bilirubin 2.1, SGOT 16, SGPT 15, alkaline phosphatase 49. IMPRESSION 1. Anemia of chronic disease. 2. Thrombocytopenia, acquired. 3. Hypokalemia. 4. Hypertension. 5. Hyperlipidemia. 6. Diabetes mellitus. 7. History of congestive heart failure. 8. Hypoproteinemia (4.7). 9. Hypoalbuminemia (2.4). 10. Hypoglobulinemia (2.2). 11. Hypocalcemia (7.6). 12. Lacunar infarct by a CAT scan. 13. Coronary artery disease. 14. Peripheral arterial disease. 15. History of dementia. PLAN, COMMENTS AND SUGGESTIONS: Suggest the patient to be taken off Lovenox. Suggest the patient to have HIT panel. It is very possible that this patient does have MDS. I will do the bone marrow once stable to rule out possibility of MDS. However the question arises, even if I diagnose MDS, would I be able to treat her as she has multiple comorbidities. Thank you very much for allowing me to participate in the management of this patient. Job#: [id number] cc:MD KRYSTAL CONRAD MD MAURICE HADDAD, MD COURTNEY M. PRESTON, M.D.
[2018-11-17] MEDS ORDERED: ALTEPLASE RECOMBINANT 2 MG/2 ML VIAL IV PRN (12:30)
--- NOTE | 2018-11-17 13:49 | Progress Note ---
DATE: November 17, 2018 CARDIOLOGY PROGRESS NOTE SUBJECTIVE: Patient had no events overnight. PEG tube placement yesterday. No chest pain or shortness of breath. OBJECTIVE VITAL SIGNS: Temperature is 98.2, heart rate is 76, respirations are 14, blood pressure is 144/61, oxygen saturation 99% on room air. GENERAL: She is a chronically ill-appearing elderly woman lying comfortably in bed in no apparent distress. CARDIOVASCULAR: Regular rate and rhythm. LUNGS: Clear to auscultation. ABDOMEN: Soft and nontender. CARDIOVASCULAR MEDICATIONS: Reviewed. LABORATORY DATA: Hemoglobin 9.1. Creatinine 0.89. IMPRESSION 1. Unstable ventricular tachycardia, resolved. 2. Hypokalemia. 3. Premature ventricular complexes. 4. Nausea and vomiting. 5. Osedu-vr-gkhvmic kidney injury, improved. 6. History congestive heart failure. 7. Hyperlipidemia. 8. Cerebrovascular accident. Continue current cardiovascular medications. Restart oral antihypertensives through the PEG tube for blood pressure control. No significant arrhythmias found on telemetry. Replace potassium to keep level greater than 4. She may be transferred to [facility] [place] from a cardiovascular standpoint. Job#: [id number] MARY ANN
[2018-11-17] MEDS: FLUCONAZOLE 200 MG/100 ML 100 ML IV SCH (15:00)
[2018-11-17] MEDS: POTASSIUM CHLORIDE 20 MEQ TAB CR PO SCH (15:58)
[2018-11-17] MEDS: MEMANTINE 10 MG TAB PO SCH (16:10)
[2018-11-17] MEDS: CLOPIDOGREL BISULFATE 75 MG TAB PO SCH (16:10)
[2018-11-17] MEDS: FLUOXETINE HCL 20 MG CAP PO SCH (16:10)
[2018-11-17] MEDS: LEVOFLOXACIN 500MG/D5W 100ML 100 ML IV SCH (16:11)
[2018-11-17] MEDS: CLONIDINE HCL 0.3MG/24 HR PATCH TOP SCH (16:15)
--- NOTE | 2018-11-17 17:57 | NUR ---
Report called to Nacho Vera RN at [facility]. Pt calm, AOx2, denies pain, NAD noted
[2018-11-17] MEDS ORDERED: INSULIN LISPRO 100 UNIT/1 ML 3ML VIAL SQ SCH (18:00)
--- NOTE | 2018-11-17 19:49 | NUR ---
Pt left with EMS at 1945, daughter Bonita stated that she will meet pt at [facility]. Pt's VSS, no changes noted. MANUELA Ramirez from [facility] called, asked and answered questions about last VS and BS, recent meds, microbiology and isolation results from this hospitalization, height and weight.
[2018-11-17] MEDS ORDERED: METOPROLOL TARTRATE 50 MG TAB PO SCH (21:00)
--- NOTE | 2018-11-18 08:35 | Discharge Summary ---
1. The patient is a 73-year-old female came here with past medical history of course is positive for cerebellar CVA, hypertension, hyperlipidemia, diabetes, multiple strokes. She was found to have urosepsis with acute renal insufficiency, nonsustained ventricular tachycardia. Vomiting was resolved and patient did not want to eat. She was having evidence of aspiration. She had aspiration pneumonia, started on IV antibiotics. MRI of the head showed no significant change when compared to the other MRI of the head. Dr. Fierro, neurology was consulted on the case. Dr. Geovany Wright for gastroenterology also. She was started on IV Reglan, which seemed to control the vomiting, but because of the lack of appetite and the aspiration, patient was placed on a PEG tube feeding. Patient is going to go to [facility] for continuation of the IV antibiotic, speech therapy, physical and occupational therapy and optimization of the overall medical condition. PHYSICAL EXAMINATION: Heart: Shows regular rhythm, normal S1 and S2 sounds. Lungs: Clear bilaterally. Abdomen: Soft. She has PEG tube in place. Extremities: Show no evidence of cyanosis, edema, or trauma. Vital Signs: Blood pressure 135/44, temperature 98.9, heart rate 79 per minute, respiratory rate 17 per minute, oxygen saturation 100%. On the BMP, sodium 136, potassium 3.6, chloride 99, CO2 17, BUN 17, creatinine 0.89, glucose of 211. On the CBC, white blood count 6.90, hemoglobin 9.1, hematocrit 26.7, platelet count 138,000. PT 12.4, INR 0.85, PTT 17.6. AST 16, ALT 15, total bilirubin 2.1, and alkaline phosphatase of 49. FINAL IMPRESSION: 1. Aspiration pneumonia. 2. Urinary tract infection. 3. Dysphagia, status post percutaneous endoscopic gastrostomy tube feeding. 4. Status post cerebellar cerebrovascular accident in the past. 5. Hypertension. 6. Hypercholesterolemia. PLAN OF TREATMENT: Continue metoclopramide 50 mg IV q.6h., Levaquin 500 mg IV once a day, fluconazole 100 mg IV once a day for thrush, Zosyn 3.375 g IV piggyback q.6h. Continue Namenda 10 mg daily, Lipitor 80 mg daily, clonidine 0.3 mg patch every 7 days, Protonix 40 mg twice a day. Continue Zofran 4 mg IV q.4h. as needed, amlodipine 10 mg daily, fluoxetine 20 mg daily, hydralazine 20 mg IV q.4h. as needed for hypertension, lisinopril 40 mg daily, Solu-Medrol 40 mg IV twice a day which can be changed to p.o. Continue labetalol 10 mg IV q.6h. as needed for hypertension, metoprolol 50 mg daily, Amitiza 24 mcg p.o. twice a day which is going to be changed to Colace because of the PEG tube. Continue promethazine 12.5 mg IV q.4h. as needed for vomiting, potassium 20 mEq daily, Plavix 75 mg daily, Requip 0.25 mg at bedtime. Monitor blood sugar q.6h. Hydralazine 50 mg twice a day and furosemide 40 mg daily. Patient is going to be transferred to [facility]. JOSE GRACE MD Job#: [id number]
== END 2018-11-17 19:37 | DRG 871 ==
LOC: ER 10:55 → ERHOLD 14:18 → ICU 16:24 → IMCU 11-16 16:59
PROVIDERS: ADMIT Internal Medicine; ATTEND Internal Medicine
PROC: 02HV33Z Insertion of Infusion Device into Superior Vena Cava, Percutaneous Approach (ICD-10-PCS; principal; 2018-11-09)
PROC: 0DH63UZ Insertion of Feeding Device into Stomach, Percutaneous Approach (ICD-10-PCS; 2018-11-16)
PROC: 0DB78ZX Excision of Stomach, Pylorus, Via Natural or Artificial Opening Endoscopic, Diagnostic (ICD-10-PCS; 2018-11-16 13:40)
DX: A41.50 Gram-negative sepsis, unspecified (principal); J15.6 Pneumonia due to other Gram-negative bacteria; J69.0 Pneumonitis due to inhalation of food and vomit; N30.01 Acute cystitis with hematuria; I47.2 Ventricular tachycardia; N17.9 Acute kidney failure, unspecified; I13.0 Hypertensive heart and chronic kidney disease with heart failure and stage 1 through stage 4 chronic kidney disease, or unspecified chronic kidney disease; E86.0 Dehydration; N18.9 Chronic kidney disease, unspecified; E78.00 Pure hypercholesterolemia, unspecified; I69.393 Ataxia following cerebral infarction; I49.3 Ventricular premature depolarization; I50.9 Heart failure, unspecified; D63.8 Anemia in other chronic diseases classified elsewhere; D69.6 Thrombocytopenia, unspecified; E87.6 Hypokalemia; E78.5 Hyperlipidemia, unspecified; E77.8 Other disorders of glycoprotein metabolism; E83.51 Hypocalcemia; I25.10 Atherosclerotic heart disease of native coronary artery without angina pectoris; B95.2 Enterococcus as the cause of diseases classified elsewhere; E11.22 Type 2 diabetes mellitus with diabetic chronic kidney disease; B96.89 Other specified bacterial agents as the cause of diseases classified elsewhere; B96.1 Klebsiella pneumoniae [K. pneumoniae] as the cause of diseases classified elsewhere; K56.41 Fecal impaction; E11.65 Type 2 diabetes mellitus with hyperglycemia; F32.9 Major depressive disorder, single episode, unspecified; E83.42 Hypomagnesemia; G25.81 Restless legs syndrome; Z79.84 Long term (current) use of oral hypoglycemic drugs; K20.9 Esophagitis, unspecified; K29.70 Gastritis, unspecified, without bleeding; K44.9 Diaphragmatic hernia without obstruction or gangrene; Z88.5 Allergy status to narcotic agent; Z88.8 Allergy status to other drugs, medicaments and biological substances; Z83.3 Family history of diabetes mellitus; Z82.49 Family history of ischemic heart disease and other diseases of the circulatory system
CPT/HCPCS: 36415; 36569; 43239; 43246; 70450; 70551; 71045; 74018; 74176; 74177; 74470; 80048; 80053; 81001; 82150; 82270; 82550; 82553; 82607; 82728; 82746; 82948; 83540; 83605; 83690; 83735; 83880; 84100; 84132; 84466; 84484; 85014; 85018; 85025; 85045; 85610; 85730; 86022; 86850; 86900; 86920; 87040; 87086; 87186; 87493; 88305; 88312; 93005; 93306; 93971; 96372; 97139; 99284; J0360; J0610; J1450; J1650; J1720; J1940; J1956; J2001; J2020; J2405; J2543; J2550; J2765; J2920; J3475; J3480; J7030; J7050; P9016; P9034; Q9967

== ENCOUNTER → 2019-09-26 | Day surgery (SDC) | payer MEDICARE, OTHER ==
[~2019-09-26] MED LIST changes: +ACETAMINOPHEN325 M1 PO; +ASPIR 8181 MG PO; +BISCOLAX RC; +COLACE100 MG PO; +DIAZEPAM5 MG PO; +FUROSEMIDE40 MG PO; +HUMULIN R100 UNIT/2 SQ; +HYDRALAZINE HCL 20 MG/ML VIAL ONE; +HYDROCORTISONE10 MG PO; +LACTULOSE20 GM/30 M PO; +LEVOTHYROXINE75 MCG PO; +PANTOPRAZOLE SO40 MG PO; +PROPOFOL IV EMULSION 10 MG/ML 50 ML VIAL ONE; +ROPINIROLE HC0.25 MG PO; +ZOFRAN8 MG PO
[2019-09-26 14:20] VITALS: BP 165/78
--- NOTE | 2019-09-26 21:53 | Operative Report ---
DATE OF PROCEDURE: 09/26/2019 SURGEON: Geovany Wright MD PROCEDURE: EGD with PEG tube replacement. INDICATIONS FOR PROCEDURE: Dysfunctional G-tube. MEDICATIONS: The patient was done under MAC, please see anesthesiologist's note. PROCEDURE IN DETAIL: With the patient in the supine position, a flexible fiberoptic Olympus gastroscope was introduced into the esophagus under direct visualization without any difficulty. There was some patchy erythema noted in the distal esophagus. The scope was then advanced with ease into the stomach traversing a small sliding hiatal hernia, mucosa overlying the antrum and the body revealed some patchy areas of erythema. The pylorus was intubated with ease and the scope was advanced all the way to the second portion of the duodenum. A large diverticulum was noted in the proximal second portion. Mucosa overlying the duodenal bulb appeared to be within normal limits. The scope was then withdrawn back into the stomach and retroflexed mucosa overlying the fundus and cardia appeared to be within normal limits. The scope was then straightened out. The old G-tube was removed per the pull traction method and PEG tube replacement was carried out through the old G-tube stoma in the usual fashion. The scope was subsequently withdrawn after documenting a good positioning of the intragastric bumper. The patient tolerated the procedure well. IMPRESSION: 1. Distal esophagitis, mild. 2. Small sliding hiatal hernia. 3. Gastritis, mild. 4. Large diverticulum, second portion of duodenum. 5. PEG tube replacement carried out in usual fashion through the old G-tube stoma. The patient tolerated the procedure well. The patient can use G-tube of one return to facility. Geovany Wright MD [facility] [place]/REE /[id number] cc: Vinny Power MD
== END | disposition home or self-care (01) ==
LOC: OR 09:54
PROVIDERS: ATTEND Internal Medicine Gastroenterology
DX: K94.23 Gastrostomy malfunction (principal); R10.9 Unspecified abdominal pain; Z88.5 Allergy status to narcotic agent; Z88.8 Allergy status to other drugs, medicaments and biological substances; Z74.01 Bed confinement status; I69.398 Other sequelae of cerebral infarction; K20.9 Esophagitis, unspecified; K44.9 Diaphragmatic hernia without obstruction or gangrene; K29.70 Gastritis, unspecified, without bleeding; K57.10 Diverticulosis of small intestine without perforation or abscess without bleeding; Z01.810 Encounter for preprocedural cardiovascular examination
CPT/HCPCS: 36415; 43246; 82948; 93005; J0360; J2704

== ENCOUNTER 2020-12-30 17:22 | Emergency (ER) | payer MEDICARE, OTHER ==
[~2020-12-30] VITALS: Ht 154.9 cm; Wt 48.5 kg
[~2020-12-30 17:22] MED LIST changes: -HYDRALAZINE HCL 20 MG/ML VIAL ONE; -PROPOFOL IV EMULSION 10 MG/ML 50 ML VIAL ONE
[2020-12-30 17:53] LABS: BASOPHILS % 0.4 % (0.0-1.0); EOSINOPHILS # (AUTO) 0.1 (0.0-0.4); EOSINOPHILS % 1.9 % (0.0-6.0); LYMPHOCYTES # (AUTO) 2.1 (1.0-3.2); LYMPHOCYTES % 37.3 % (18.0-39.1); MEAN CORPUSCULAR HGB CONC 33.2 g/dL (31-35); MEAN CORPUSCULAR VOLUME 90.5 fL (81-99); MONOCYTES # (AUTO) 0.5 (0.2-0.8); MONOCYTES % 8.3 % (4.4-11.3); NEUTROPHILS % 51.7 % (38.7-80.0); PLATELET COUNT 233 x10e3/uL (140-360); RED CELL DISTRIBUTION WIDTH 14.2 % (11.7-14.4)
[2020-12-30 18:08] LABS: HEMATOCRIT 19.9 % (34.2-44.1); HEMOGLOBIN 6.6 g/dL (12.0-16.0)
[2020-12-30 18:18] LABS: ANION GAP 13.2 mmol/L (8-16); BLOOD UREA NITROGEN 17 mg/dL (7-26); BUN/CREATININE RATIO 21 (6-25); CALCIUM 8.1 mg/dL (8.4-10.2); CARBON DIOXIDE 18 mmol/L (22-29); CHLORIDE 107 mmol/L (98-107); EST GLOMERULAR FILTRATION RATE > 60 ML/MIN (60-); GLUCOSE 235 mg/dL (74-118); POTASSIUM 4.2 mmol/L (3.5-5.1); SODIUM 134 mmol/L (136-145)
[2020-12-30] MEDS ORDERED: SODIUM CHLORIDE 0.9% 250ML 250 ML IV ONE (19:00)
[2020-12-30] MEDS ORDERED: SODIUM CHLORIDE 0.9% 250ML 250 ML ONE (22:33)
== END 2020-12-31 01:15 | disposition home or self-care (01) ==
LOC: ER 17:25
DX: D64.9 Anemia, unspecified (principal); I10 Essential (primary) hypertension; E11.65 Type 2 diabetes mellitus with hyperglycemia; E78.5 Hyperlipidemia, unspecified; N18.9 Chronic kidney disease, unspecified; K21.9 Gastro-esophageal reflux disease without esophagitis; Z86.73 Personal history of transient ischemic attack (TIA), and cerebral infarction without residual deficits
CPT/HCPCS: 36415; 80048; 85025; 86850; 86900; 86920; 99283; J7050; P9016